=== PATIENT | female | born 1940 | race Caucasian/White ===

== ENCOUNTER 2023-12-14 11:04 | Inpatient (IN) | payer OTHER ==
--- OUTSIDE RECORDS SUMMARY | 2023-12-14 11:08 | XMS REPORT | Continuity of Care Document ---
Author Name Unknown Address [address] [facility] [address] [place] [address] [facility] Address [address] [facility] [address] [place] [address] Care Team Providers Care Business Excellence Leader Name Role Phone BHARATHI BOJORQUEZ Primary Care Physician DR ARTIE Modi Attending Clinician DR ARTIE Modi Attending Clinician Diego child GC_SEFP_Rivera_A Attending Clinician Unavailable Madelyn Gann MD Attending Clinician [phone] MADELYN GANN Attending Clinician Can iltheo 2, [facility] Attending Clinician Unavailable Doctor Unassigned, [place] Attending Clinician U DR ARTIE Gary Admitting Clinician ARIK Diaz Admitting Clinician Unavailable GC_SEFP_Rivera_Katerina Admitting Clinician Unavailable Payers Payer Name Policy Type Policy Number Effective Date Expirati on Date Source [id number] [id number] 2023 00:00:00 [employer] (MEDICARE REPLACEMENT/ADVAN TAGE - PPO) [id number] Problems Condition Name Condition Details Condition Category Status Onset Date Resolution Date Last Treatment Date Treating Clinician Comments Source Hyperlipid emia Hyperlipid emia Disease Active 10-29 00:00: 00 [facility] Allergic conjunctiv itis, bilateral Allergic conjunctiv itis, bilateral Disease Active 10-29 00:00: 00 [facility] Other seasonal allergic rhinitis Other seasonal allergic rhinitis Disease Active 10-29 00:00: 00 [facility] Essential hypertensi on Essential hypertensi on Disease Active 10-29 00:00: 00 [facility] Iron deficiency anemia due to chronic blood loss Iron deficiency anemia due to chronic blood loss Disease Active 10-29 00:00: 00 [facility] 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 - 50 beats per minute 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 - 50 beats per minute Disease Active 10-29 00:00: 00 [facility] Fatigue Fatigue Disease Active 10-29 00:00: 00 [facility] Allergies, Adverse Reactions, Alerts Allergy Name Allergy Type Status Severity Reaction(s) Onset Date Inactive Date Treating Clinician Comments Source No Known Allergie s DA Active [facility] NO KNOWN ALLERGIE S Drug Class Active [facility] Social History Social Habit Start Date Stop Date Quantity Comments Source Exposure to SARS-CoV-2 (event) Unable to assess [facility] Alcohol intake 2020-09-22 00:00:00 2020-09-22 00:00:00 Ex-drinker (finding) [facility] Tobacco use and exposure 2020-02-12 00:00:00 2020-02-12 00:00:00 Never used [facility] Cigarettes smoked current (pack per day) - Reported 2020-02-12 00:00:00 2020-02-12 00:00:00 [facility] Cigarette pack-years 2020-02-12 00:00:00 2020-02-12 00:00:00 [facility] Tobacco Comment 2020-02-12 00:00:00 2020-02-12 00:00:00 social smoker [facility] History of tobacco use 1957-10-17 00:00:00 2015-02-11 00:00:00 Cigarette Smoker [facility] Sex Assigned At 1940 00:00:00 1940 00:00:00 [facility] Smoking Status Start Date Stop Date Source Former smoker 2020-02-12 00:00:00 2020-02-12 00:00:00 [facility] Unknown if ever smoked [facility] Medications Ordered Medication Name Filled Medication Name Start Date Stop Date Current Medication? Ordering Clinician Indication Dosage Frequency Signature (SIG) Comments Components Source levothyroxi ne 50 mcg tablet 03-04 00:00: 00 Yes [id number] TAKE 1 TABLET BY MOUTH EVERY MORNING. Keep on file. [facility] levothyroxi ne 50 mcg tablet 03-04 00:00: 00 Yes [id number] TAKE 1 TABLET BY MOUTH EVERY MORNING. Keep on file. [facility] Cholecalcif mook, Vitamin D3, (VITAMIN D3) 2,000 unit tablet 2019-10 23:55: 44 Yes 2{tbl} Take 2 tablets by mouth daily. [facility] Cholecalcif mook, Vitamin D3, (VITAMIN D3) 2,000 unit tablet 2019-10 23:55: 44 Yes 2{tbl} Take 2 tablets by mouth daily. [facility] Cholecalcif mook, Vitamin D3, (VITAMIN D3) 2,000 unit tablet 2019-10 17:55: 44 Yes 2{tbl} Take 2 tablets by mouth daily. [facility] losartan 50 mg tablet 2019-10 00:00: 00 Yes [id number] 50mg Take 1 tablet by mouth every morning. [facility] amLODIPine 10 mg tablet 2019-10 00:00: 00 Yes [id number] TAKE 1 TABLET BY MOUTH EVERY NIGHT AT BEDTIME [facility] losartan 50 mg tablet 2019-10 00:00: 00 Yes [id number] 50mg Take 1 tablet by mouth every morning. [facility] amLODIPine 10 mg tablet 2019-10 00:00: 00 Yes [id number] TAKE 1 TABLET BY MOUTH EVERY NIGHT AT BEDTIME [facility] losartan 50 mg tablet 2019-10 00:00: 00 Yes [id number] 50mg Take 1 tablet by mouth every morning. [facility] amLODIPine 10 mg tablet 2019-10 00:00: 00 Yes [id number] TAKE 1 TABLET BY MOUTH EVERY NIGHT AT BEDTIME [facility] losartan 50 mg tablet 2019-10 00:00: 00 Yes [id number] 50mg Take 1 tablet by mouth every morning. [facility] amLODIPine 10 mg tablet 2019-10 00:00: 00 Yes [id number] TAKE 1 TABLET BY MOUTH EVERY NIGHT AT BEDTIME [facility] Cholecalcif mook, Vitamin D3, (VITAMIN D3) 2,000 unit tablet 02-11 18:57: 37 Yes 2{tbl} Take 2 tablets by mouth daily. [facility] Cholecalcif mook, Vitamin D3, (VITAMIN D3) 2,000 unit tablet 02-11 18:57: 37 Yes 2{tbl} Take 2 tablets by mouth daily. [facility] Cholecalcif mook, Vitamin D3, (VITAMIN D3) 2,000 unit tablet 02-11 18:57: 37 Yes 2{tbl} Take 2 tablets by mouth daily. [facility] levothyroxi ne 50 mcg tablet 02-11 00:00: 00 Yes [id number] TAKE 1 TABLET BY MOUTH EVERY MORNING. Keep on file. [facility] levothyroxi ne 50 mcg tablet 02-11 00:00: 00 Yes [id number] TAKE 1 TABLET BY MOUTH EVERY MORNING. Keep on file. [facility] levothyroxi ne 50 mcg tablet 02-11 00:00: 00 Yes [id number] TAKE 1 TABLET BY MOUTH EVERY MORNING. Keep on file. [facility] levothyroxi ne 50 mcg tablet 02-11 00:00: 00 Yes [id number] TAKE 1 TABLET BY MOUTH EVERY MORNING. Keep on file. [facility] levothyroxi ne 50 mcg tablet 02-11 00:00: 00 03-04 00:00 :00 No [id number] TAKE 1 TABLET BY MOUTH EVERY MORNING. Keep on file. [facility] losartan 50 mg tablet 2018-10 00:00: 00 Yes [id number] 50mg Take 1 tablet by mouth every morning. [facility] amLODIPine 10 mg tablet 2018-10 00:00: 00 Yes [id number] TAKE 1 TABLET BY MOUTH EVERY NIGHT AT BEDTIME [facility] losartan 50 mg tablet 2018-10 00:00: 00 Yes [id number] 50mg Take 1 tablet by mouth every morning. [facility] amLODIPine 10 mg tablet 2018-10 00:00: 00 Yes [id number] TAKE 1 TABLET BY MOUTH EVERY NIGHT AT BEDTIME [facility] losartan 50 mg tablet 2018-10 00:00: 00 09-15 00:00 :00 No [id number] 50mg Take 1 tablet by mouth every morning. [facility] amLODIPine 10 mg tablet 2018-10 00:00: 09-15 00:00 :00 No [id number] TAKE 1 TABLET BY MOUTH EVERY NIGHT AT BEDTIME [facility] amLODIPine 10 mg tablet 07-06 00:00: 00 Yes [id number] TAKE 1 TABLET BY MOUTH EVERY NIGHT AT BEDTIME [facility] losartan 50 mg tablet 07-06 00:00: 00 Yes [id number] 50mg Take 1 tablet by mouth every morning. [facility] LOSARTAN 50 mg tablet 07-03 00:00: 00 07-06 00:00 :00 No 50mg TAKE 1 TABLET BY MOUTH EVERY MORNING [facility] amLODIPine 10 mg tablet 07-03 00:00: 00 07-06 00:00 :00 No [id number] TAKE 1 TABLET BY MOUTH EVERY NIGHT AT BEDTIME [facility] AMLODIPINE 10 mg tablet 06-28 00:00: 00 Yes [id number] TAKE 1 TABLET BY MOUTH EVERY NIGHT AT BEDTIME [facility] LOSARTAN 50 mg tablet 06-28 00:00: 00 Yes [id number] 50mg TAKE 1 TABLET BY MOUTH EVERY MORNING [facility] AMLODIPINE 10 mg tablet 06-28 00:00: 00 Yes [id number] TAKE 1 TABLET BY MOUTH EVERY NIGHT AT BEDTIME [facility] LOSARTAN 50 mg tablet 06-28 00:00: 00 Yes [id number] 50mg TAKE 1 TABLET BY MOUTH EVERY MORNING [facility] LOSARTAN 50 mg tablet 06-28 00:00: 00 Yes [id number] 50mg TAKE 1 TABLET BY MOUTH EVERY MORNING [facility] AMLODIPINE 10 mg tablet 06-28 00:00: 00 07-02 00:00 :00 No [id number] TAKE 1 TABLET BY MOUTH EVERY NIGHT AT BEDTIME [facility] levothyroxi ne 50 mcg tablet 06-20 00:00: 00 Yes [id number] TAKE 1 TABLET BY MOUTH EVERY MORNING [facility] levothyroxi ne 50 mcg tablet 06-20 00:00: 00 Yes [id number] TAKE 1 TABLET BY MOUTH EVERY MORNING [facility] levothyroxi ne 50 mcg tablet 06-20 00:00: 00 Yes [id number] TAKE 1 TABLET BY MOUTH EVERY MORNING [facility] levothyroxi ne 50 mcg tablet 06-20 00:00: 00 Yes [id number] TAKE 1 TABLET BY MOUTH EVERY MORNING [facility] levothyroxi ne 50 mcg tablet 06-20 00:00: 00 Yes [id number] TAKE 1 TABLET BY MOUTH EVERY MORNING [facility] levothyroxi ne 50 mcg tablet 06-20 00:00: 00 Yes [id number] TAKE 1 TABLET BY MOUTH EVERY MORNING [facility] levothyroxi ne 50 mcg tablet 06-20 00:00: 00 02-11 00:00 :00 No [id number] TAKE 1 TABLET BY MOUTH EVERY MORNING [facility] amLODIPine 10 mg tablet 05-11 00:00: 00 Yes [id number] TAKE 1 TABLET BY MOUTH EVERY NIGHT AT BEDTIME [facility] losartan 50 mg tablet 05-11 00:00: 00 Yes 50mg Take 1 tablet by mouth every morning. [facility] amLODIPine 10 mg tablet 05-11 00:00: 00 Yes [id number] TAKE 1 TABLET BY MOUTH EVERY NIGHT AT BEDTIME [facility] losartan 50 mg tablet 05-11 00:00: 00 Yes 50mg Take 1 tablet by mouth every morning. [facility] levothyroxi ne 50 mcg tablet 05-11 00:00: 00 06-20 17:33 :41 No [id number] TAKE 1 TABLET BY MOUTH EVERY MORNING [facility] amLODIPine 10 mg tablet 05-11 00:00: 00 06-20 00:00 :00 No [id number] TAKE 1 TABLET BY MOUTH EVERY NIGHT AT BEDTIME [facility] losartan 50 mg tablet 05-11 00:00: 00 06-20 00:00 :00 No 50mg Take 1 tablet by mouth every morning. [facility] amLODIPine 10 mg tablet 05-11 00:00: 00 06-20 00:00 :00 No [id number] TAKE 1 TABLET BY MOUTH EVERY NIGHT AT BEDTIME [facility] losartan 50 mg tablet 05-11 00:00: 00 06-20 00:00 :00 No 50mg Take 1 tablet by mouth every morning. [facility] Vital Signs Vital Name Observation Time Observation Value Comments S ource Height 2023-12-05 14:57:00 162.56 CM Weight 2023-12-05 14:57:00 70 KG Height 2023-12-05 14:57:00 162.56 CM Weight 2023-12-05 14:57:00 70 KG Procedures Procedure Date / Time Performed Performing Clinician Source FREE T4 2019-06-28 16:19:00 Damari Gann [facility] THYROID STIMULATING HORMONE 2019-06-28 16:19:00 Madelyn Gann [facility] COMP. METABOLIC PANEL (06178) 2019-06-28 16:19:00 Madelyn Gann [facility] CBC WITH DIFFERENTIAL 2019-06-28 16:19:00 Madelyn Kent [facility] AGREEMENTS AUTHORIZATIONS AND IRREVOCABLE ASSIGNMENTS (FORM 2001) 2019-06-28 05:01:00 Doctor Unassigned, [place] [facility] Encounters Start Date/Time End Date/Time Encounter Type Admission Type Attending Clinicians Care Facility Care Department Encounter ID Source 2023-12-05 14:37:00 2023-12-05 18:45:00 Emergency E ARTIE ALVAREZ [facility] [id number] [facility] 2023-12-05 14:37:00 2023-12-05 14:37:00 Emergency E [facility] [id number] [facility] 2023-11-30 00:00:00 2023-11-30 00:00:00 Outpatient GC_SEFP_Riv era_A [facility] [id number] [facility] 2023-11-08 00:00:00 2023-11-08 00:00:00 Outpatient GC_SEFP_Riv era_A [facility] [id number] [facility] 2021-08-27 00:00:00 2021-08-27 00:00:00 [facility] [id number] [id number] [facility] 2021-03-03 00:00:00 2021-03-03 00:00:00 Refill Madelyn Gann [facility] [id number] [id number] [id number] [facility] 2020-09-22 08:57:07 2020-09-23 08:49:12 Telemedici ne Visit Madelyn Gann Katerina [facility] [id number] [id number] [id number] [facility] 2020-09-22 15:40:00 2020-09-22 15:40:00 Outpatient R MADELYN GANN [facility] [id number] [facility] 2020-09-15 00:00:00 2020-09-15 00:00:00 Refill Madelyn Gann Katerina [facility] [id number] 350.1.13.10 [id number] [facility] 2020-08-26 15:20:00 2020-08-26 15:20:00 Outpatient R MADELYN GANN [facility] [id number] [facility] 2020-08-18 16:35:00 2020-08-18 16:35:00 Outpatient R MADELYN GANN [facility] [id number] [facility] 2020-08-14 13:40:00 2020-08-14 13:40:[address] [facility] [id number] [facility] 2020-06-20 00:00:00 2020-06-20 00:00:00 Refill Madelyn Gann [facility] [id number] [id number] [id number] [facility] 2020-02-12 07:45:11 2020-02-12 14:16:57 Telemedici ne Visit Madelyn Gann [facility] [id number] 350.1.13.10 4.2.7.2.[id number] [facility] 2020-02-12 13:40:00 2020-02-12 13:40:00 Outpatient R MADELYN GANN [facility] [id number] [facility] 2019-06-28 11:14:55 2019-07-02 12:48:06 [facility] Visit 2, [facility] Madelyn Gann [facility] [id number] 350.1.13.10 4.2.7.2.[id number] [facility] 2019-07-02 00:00:00 2019-07-02 00:00:00 Refill Madelyn Gann [facility] [id number] [id number] [id number] [facility] 2019-06-28 00:00:00 2019-06-28 00:00:00 Orders Only Doctor Unassigned, [place] [facility] [id number] 350.1.13.10 4.2.7.2.[id number] [facility] 2019-06-20 00:00:00 2019-06-20 00:00:00 Refill Madelyn Gann [facility] [id number] 350.1.13.10 4.2.7.2.[id number] [facility] 2019-06-19 00:00:00 2019-06-19 00:00:00 Refill Madelyn Gann [facility] [id number] 350.1.13.10 4.2.7.2.[id number] [facility] Results Test Description Test Time Test Comments Results Result Co mments Source AMMONIA [id number] 17:34:00* Test Item Value Reference Range Interpretation Comme nts AMMONIA (test code = 54A) <10 umol/L 11-32 L DRUGS OF [id number] 17:27:00* Test Item Value Reference Range Interpretation Comme nts DRUG SCRN (test code = HDOA) URINE DRUG SCREEN This is an unconfirmed screening result and should not be used for non-medical purposes CANNABINOD (test code = 88C) NEGATIVE NEGATIVE AMPHETAMINE (test code = 84A) NEGATIVE NEGATIVE BENZODIAZP (test code = 86A) NEGATIVE NEGATIVE BARBITURAT (test code = 85A) NEGATIVE NEGATIVE OPIATES (test code = 92B) NEGATIVE NEGATIVE COCAINE (test code = 87A) NEGATIVE NEGATIVE PHENCYCLID (test code = 66A) NEGATIVE NEGATIVE METHADONE (test code = 64A) NEGATIVE NEGATIVE DOAH (test code = DOAH.) URINE DRUGSCREEN Cut-off values are as follows: Cannabinoids 50 ng/mL Cocaine 300 ng/mL Amphetamines 1000 ng/mL Phencyclidine 25 ng/mL Benzodiazepines 200 ng.mL Methadone 300 ng/mL Barbiturates 200 ng/mL Opiates 300 ng/mL SARS-CoV (RAPID ANTIGEN)2023-12-05 17:24:00* Test Item Value Reference Range Interpretation Comme nts SARS-CoV (ANTIGEN) (test code = COVAG) POSITIVE NEGATIVE AA COVID AG (test code = COVAGC) This test has been marketed under the FDA Emergency Use Authorization (EUA) to meet challenges of the COVID-19 pandemic. The validation standards normally enforced by the FDA and the College of the [employer] (CAP) are more stringent than those required for this test. Therefore, the result should be interpreted with caution and close attention to other clinical and epidemiological data LIVER [id number] 16:05:00* Test Item Value Reference Range Interpretation Comme nts BILI TOTAL (test code = 11A) 0.3 mg/dL 0.2-1.0 BILI DIRCT (test code = 12A) <0.1 mg/dL 0.0-0.3 Unable to calcul ate Indirect Bili due to low test results PROTEIN (test code = 07D) 6.5 g/dL 5.7-8.2 ALBUMIN (test code = 08D) 4.1 g/dL 3.2-4.8 GLOBULIN (test code = GLB) 2.4 g/dL 1.5-3.8 ALB/GLOB (test code = AGRR) 1.7 1.0-2.6 ALK PHOS (test code = 35A) 59 IU/L 46-116 AST (test code = 30A) 26 IU/L <=33 ALT (test code = 31A) 9 IU/L 10-49 L [id number] 15:57:00* Test Item Value Reference Range Interpretation Comme nts ACETAMINPH (test code = 94M) <0.2 mg/dL 1.2-2.5 L ALCOHOL BLOOD (ETOH)2023-12-05 15:57:00* Test Item Value Reference Range Interpretation Comme nts ETOH (test code = HALC) ETHANOL * The result is to be used only for medical purposes ALCOHOL (test code = 56A) <10 mg/dL <=10 CT HEAD W/O [id number] 15:55:43 [facility] 1940 Sex: FExam: CT head without contrast.Clinical History: Altered mental status;Clearance for SCU.Location: D4.Findings: Multislice axial noncontrast images are obtained through the head. Coronal and sagittal reconstructed images are obtained and are used in interpretation.Comparison is made with previous study dated September 12, 2023. There is moderate diffuse cerebral volume loss appropriate for age. There are moderate periventricular white matter changes. No areas of abnormal density are otherwise identified within the brain. There is no mass effect. No hydrocephalus. No intra or extra-axial hemorrhage. There is no evidence of acute infarct. There is mild mucosal thickening within the maxillary sinuses and mod erate mucosal thickening within the ethmoid sinuses. No skeletal or soft tissue abnormalities are identified.Impression:1. No acute abnormalities are identified.2. There are moderate periventricular white matter changes.*One or more of the following radiation dose reduction techniques was used: automated exposure control, adjustment of mA and/or KV according to patient size, and/or utilization ofiterative reconstruction technique.Electronically signed by: Arik Cantu MD 12/05/2023 03:55 PM [facility] [id number] METABOLIC [id number] 15:50:00* Test Item Value Reference Range Interpretation Comme nts GLUCOSE (test code = 06D) 98 mg/dL 75-100 SODIUM (test code = 01A) 136 mmol/L 136-145 POTASSIUM (test code = 01B) 3.7 mmol/L 3.6-5.1 CHLORIDE (test code = 04A) 105 mmol/L 98-107 CO2 (test code = 02A) 25 mmol/L 20-31 ANION GAP (test code = ANG) 9.8 mmol/L BUN (test code = 05D) 14 mg/dL 9-23 CREATININE (test code = 03E) 0.9 mg/dL 0.6-1.0 GFR (test code = GFR) 62 mL/min/1.73m\\S\\2 >=90 L EGFR (test code = EGFR) eGFR BY CKD-EPI CALCULATION IS NOT RECOMMENDED FOR PATIENTS UNDER 18 YEARS OF AGE. BUN/CREA (test code = BCR) 15 12-20 CALCIUM (test code = 09D) 8.6 mg/dL 8.3-10.6 BILI TOTAL (test code = 11A) 0.3 mg/dL 0.2-1.0 PROTEIN (test code = 07D) 6.6 g/dL 5.7-8.2 ALBUMIN (test code = 08D) 4.2 g/dL 3.2-4.8 GLOBULIN (test code = GLB) 2.4 g/dL 1.5-3.8 ALB/GLOB (test code = AGRR) 1.8 1.0-2.6 ALK PHOS (test code = 35A) 60 IU/L 46-116 AST (test code = 30A) 26 IU/L <=33 ALT (test code = 31A) 12 IU/L 10-49 [id number] 15:49:00* Test Item Value Reference Range Interpretation Comme nts SALICYLATE (test code = 94B) <3.0 mg/dL 15.0-30.0 L CBC (INCLUDES AUTOMATED DIFFERENTIAL)2023-12-05 15:31:00* Test Item Value Reference Range Interpretation Comme nts WBC (test code = WBC) 8.3 10\\S\\3/uL 4.5-11.0 RBC (test code = RBC) 3.48 10\\S\\6/uL 3.80-5.80 L HGB (test code = HBG) 11.0 g/dL 12.0-15.5 L HCT (test code = HCT) 33.2 % 35.0-44.0 L MCV (test code = MCV) 95.4 fL 81.0-99.0 MCH (test code = MCH) 31.6 pg 27.0-31.0 H MCHC (test code = MCHC) 33.1 g/dL 32.0-36.0 RDW (test code = RDW) 13.2 % 11.5-14.5 PLT (test code = PLT) 204 10\\S\\3/uL 130-400 MPV (test code = MPV) 11.1 fL 9.4-12.4 NEUTROP # (test code = NE#) 6.4 10\\S\\3/uL 1.6-8.0 LYMPH # (test code = LY#) 1.3 10\\S\\3/uL 1.1-3.5 MONOCYTE # (test code = MO#) 0.6 10\\S\\3/uL 0.0-1.1 EOSINOPH # (test code = EO#) 0.0 10\\S\\3/uL 0.0-0.7 BASOPHIL # (test code = BA#) 0.0 10\\S\\3/uL 0.0-0.3 IG # (test code = IG#) 0.02 10\\S\\3/uL 0.00-0.06 NRBC # (test code = NRBC#) 0.00 10\\S\\3/uL 0.00-0.01 NEUTROPH % (test code = NE%) 76.8 % 35.0-73.0 H LYMPH % (test code = LY%) 15.2 % 20.0-55.0 L MONO % (test code = MO%) 7.7 % 2.5-10.0 EOSINOPH % (test code = EO%) 0.0 % 0.0-5.0 BASOPHIL % (test code = BA%) 0.1 % 0.0-2.0 IG % (test code = IG%) 0.2 % 0.0-0.8 NRBC% (test code = NRBC%) 0.0 % 0.0-0.2 MANDIFF (test code = MDIFF) NO XR CHEST 1 VIEW [id number] 15:11:49 [facility] : 1940 Sex: FCHEST, SINGLE VIEWLOCATION [id number]: Confusion.A single view of the chest was obtained at 3:08 PM. No prior exams are available for comparison.FINDINGS: The lungs are clear of acute infiltrate or mass. The heartand pulmonary vasculature are within normal limits. No pleural effusion is present. No free air is identified under the diaphragm. No acute skeletal abnormality is seen.IMPRESSION: No acute thoracic abnormality.Electronically signed by: Osmany Valdez MD 12/05/2023 03:11 PM [facility] [id number] STIMULATING [id number] 17:57:00* Test Item Value Reference Range Interpretation Comme nts TSH (test code = 2223649465) See_Comment [Automated [employer]] The system which generated this result transmitted reference range: 0.45 - 4.70 mIU/L. The reference range was not used to interpret this result as normal/abnormal. Lab Interpretation (test code = 52862-2) [facility] [id number] 17:57:00 * Test Item Value Reference Range Interpretation Comme nts TSH (test code = 6539692597) See_Comment [Automated [employer]] The system which generated this result transmitted reference range: 0.45 - 4.70 mIU/L. The reference range was not used to interpret this result as normal/abnormal. Lab Interpretation (test code = 61435-0) Normal [facility] [id number] 17:43:00* Test Item Value Reference Range Interpretation Comme nts FREE T4 (test code = 5070631601) 1.32 ng/dL 0.78-2.2 Lab Interpretation (test cod e = 22490-4) Normal [facility] [id number] 17:43:00* Test Item Value Reference Range Interpretation Comme nts FREE T4 (test code = 6796931089) 1.32 ng/dL 0.78-2.2 Lab Interpretation (test cod e = 28898-3) Normal [facility]. METABOLIC PANEL (68621)2019-06-28 17:29:00* Test Item Value Reference Range Interpretation Comme nts NA (test code = 8189939418) 143 mmol/L 135-145 K (test code = 7608267098) 4.3 mmol/L 3.5-5 CL (test code = 9595388598) 110 mmol/L 98-108 H CO2 TOTAL (test code = 1620782044) 27 mmol/L 23-31 AGAP (test code = 1173303534) 2-16 BUN (test code = 7697988035) 17 mg/dL 7-23 GLUCOSE (test code = 8689216362) 98 mg/dL 70-110 CREATININE (test code = 7535018161) 0.87 mg/dL 0.5-1.04 TOTAL BILI (test code = 5671092269) 0.4 mg/dL 0.1-1.1 CALCIUM (test code = 3726371981) 9.9 mg/dL 8.6-10.6 T PROTEIN (test code = 0669492749) 7.0 g/dL 6.3-8.2 ALBUMIN (test code = 9798028817) 4.3 g/dL 3.5-5 ALK PHOS (test code = 1690923426) 60 U/L 34-122 ALT(SGPT) (test code = 9663441242) 17 U/L 9-51 AST(SGOT) (test code = 7662086553) 24 U/L 13-40 eGFR Calculation (Non-) (test code = 9427573371) mL/min/1.73m2 eGFR Calculation () (test code = 8728030997) mL/min/1.73m2 AALIYAH (test code = AALIYAH) Association of Glomerular Filtration Rate (GFR) and Staging of Kidney Disease*+ + + +| GFR (mL/min/1.73 m2)?| With Kidney Damage?|?Without Kidney Damage+ --------+ --------+ +|?>90?|?S tage one?|? Normal?+ ---------+ ---------+ +|?60-89? |?Stage two?|? Decreased GFR? + --+ --+ ------+|?30-59?|?Stage three?|? Stage three? + --+ --+ ------+|?15-29?|?Stage four? |? Stage four?+ -------+ -------+ +|?<15 (or dialysis)??|?Stage five? |? Stage five?+ -------+ -------+ +*Each stage assumes the associated GFR level has been in effect for at least three months.?Stages 1 to 5, with or without kidney disease, indicate chronic kidney disease.Notes: Determination of stages one and two (with eGFR >59mL/min/1.73 m2) requires estimation of kidney damage for at least three months as defined by structural or functional abnormalities of the kidney, manifested by either:Pathological abnormalities or Markers of kidney damage (including abnormalities in the composition of the blood or urine or abnormalities in imaging tests). Lab Interpretation (test code = 72843-1) Abnormal [facility]. METABOLIC PANEL ([id number])2019-06-28 17:29:00* Test Item Value Reference Range Interpretation Comme nts NA (test code = 5886231808) 143 mmol/L 135-145 K (test code = 4085449365) 4.3 mmol/L 3.5-5 CL (test code = 3906994690) 110 mmol/L 98-108 H CO2 TOTAL (test code = 4485453786) 27 mmol/L 23-31 AGAP (test code = 0006465210) 2-16 BUN (test code = 5244514302) 17 mg/dL 7-23 GLUCOSE (test code = 2636424145) 98 mg/dL 70-110 CREATININE (test code = 8516047822) 0.87 mg/dL 0.5-1.04 TOTAL BILI (test code = 2243543425) 0.4 mg/dL 0.1-1.1 CALCIUM (test code = 6435316852) 9.9 mg/dL 8.6-10.6 T PROTEIN (test code = 4494052863) 7.0 g/dL 6.3-8.2 ALBUMIN (test code = 1484778429) 4.3 g/dL 3.5-5 ALK PHOS (test code = 1141768977) 60 U/L 34-122 ALT(SGPT) (test code = 2789730797) 17 U/L 9-51 AST(SGOT) (test code = 8587698568) 24 U/L 13-40 eGFR Calculation (Non-) (test code = 2865755817) mL/min/1.73m2 eGFR Calculation () (test code = 6852405451) mL/min/1.73m2 AALIYAH (test code = AALIYAH) Association of Glomerular Filtration Rate (GFR) and Staging of Kidney Disease*+ + + +| GFR (mL/min/1.73 m2)?| With Kidney Damage?|?Without Kidney Damage+ --------+ --------+ +|?>90?|?S tage one?|? Normal?+ ---------+ ---------+ +|?60-89? |?Stage two?|? Decreased GFR? + --+ --+ ------+|?30-59?|?Stage three?|? Stage three? + --+ --+ ------+|?15-29?|?Stage four? |? Stage four?+ -------+ -------+ +|?<15 (or dialysis)?|?Stage five? |? Stage five?+ -------+ -------+ +*Each stage assumes the associated GFR level has been in effect for at least three months.?Stages 1 to 5, with or without kidney disease, indicate chronic kidney disease.Notes: Determination of stages one and two (with eGFR >59mL/min/1.73 m2) requires estimation of kidney damage for at least three months as defined by structural or functional abnormalities of the kidney, manifested by either:Pathological abnormalities or Markers of kidney damage (including abnormalities in the composition of the blood or urine or abnormalities in imaging tests). Lab Interpretation (test code = 73304-0) Abnormal [facility] WITH [id number] 17:18:00* Test Item Value Reference Range Interpretation Comme nts WBC (test code = 6690-2) See_Comment [[employer] The system which generated this result transmitted reference range: 4.30 - 11.10 10*3/?L. The reference range was not used to interpret this result as normal/abnormal. RBC (test code = 789-8) See_Comment L [Automated messa ge] The system which generated this result transmitted reference range: 3.93 - 5.25 10*6/?L. The reference range was not used to interpret this result as normal/abnormal. HGB (test code = 718-7) 11.3 g/dL 11.6-15 L HCT (test code = 4544-3) 36.2 % 35.7-45.2 MCV (test code = 787-2) 100.3 fL 80.6-95.5 H MCH (test code = 785-6) 31.3 pg 25.9-32.8 MCHC (test code = 786-4) 31.2 g/dL 31.6-35.1 L RDW-SD (test code = 62537-3) 46.6 fL 39-49.9 RDW-CV (test code = 788-0) 12.5 % 12-15.5 PLT (test code = 777-3) See_Comment [Automated messa ge] The system which generated this result transmitted reference range: 166 - 358 10*3/?L. The reference range was not used to interpret this result as normal/abnormal. MPV (test code = 49211-9) 10.8 fL 9.5-12.9 NRBC/100 WBC (test code = 5900901735) See_Comment [Autom[employer]] The system which generated this result transmitted reference range: 0.0 - 10.0 /100 WBCs. The reference range was not used to interpret this result as normal/abnormal. NRBC x10^3 (test code = 7527400157) <0.01 See_Comment [Automated messa ge] The system which generated this result transmitted reference range: 10*3/?L. The reference range was not used to interpret this result as normal/abnormal. GRAN MAT (NEUT) % (test code = 770-8) 43.3 % IMM GRAN % (test code = 9084663755) 0.20 % LYMPH % (test code = 736-9) 44.8 % MONO % (test code = 5905-5) 7.3 % EOS % (test code = 713-8) 3.4 % BASO % (test code = 706-2) 1.0 % GRAN MAT x10^3(ANC) (test code = 5316696242) 2.27 10*3/uL 1.88-7.09 IMM GRAN x10^3 (test code = 8837224113) <0.03 0-0.06 LYMPH x10^3 (test code = 731-0) 2.35 10*3/uL 1.32-3.29 MONO x10^3 (test code = 742-7) 0.38 10*3/uL 0.33-0.92 EOS x10^3 (test code = 711-2) 0.18 10*3/uL 0.03-0.39 BASO x10^3 (test code = 704-7) 0.05 10*3/uL 0.01-0.07 Lab Interpretation (test code = 57105-5) Abnormal [facility] WITH [id number] 17:18:00* Test Item Value Reference Range Interpretation Comme nts WBC (test code = 6690-2) See_Comment [Automated messa ge] The system which generated this result transmitted reference range: 4.30 - 11.10 10*3/?L. The reference range was not used to interpret this result as normal/abnormal. RBC (test code = 789-8) See_Comment L [Automated [employer] ge] The system which generated this result transmitted reference range: 3.93 - 5.25 10*6/?L. The reference range was not used to interpret this result as normal/abnormal. HGB (test code = 718-7) 11.3 g/dL 11.6-15 L HCT (test code = 4544-3) 36.2 % 35.7-45.2 MCV (test code = 787-2) 100.3 fL 80.6-95.5 H MCH (test code = 785-6) 31.3 pg 25.9-32.8 MCHC (test code = 786-4) 31.2 g/dL 31.6-35.1 L RDW-SD (test code = 42275-5) 46.6 fL 39-49.9 RDW-CV (test code = 788-0) 12.5 % 12-15.5 PLT (test code = 777-3) See_Comment [Automated messa ge] The system which generated this result transmitted reference range: 166 - 358 10*3/?L. The reference range was not used to interpret this result as normal/abnormal. MPV (test code = 96712-9) 10.8 fL 9.5-12.9 NRBC/100 WBC (test code = 7172474499) See_Comment [Automated me ssage] The system which generated this result transmitted reference range: 0.0 - 10.0 /100 WBCs. The reference range was not used to interpret this result as normal/abnormal. NRBC x10^3 (test code = 9576488134) <0.01 See_Comment [Automated messa ge] The system which generated this result transmitted reference range: 10*3/?L. The reference range was not used to interpret this result as normal/abnormal. GRAN MAT (NEUT) % (test code = 770-8) 43.3 % IMM GRAN % (test code = 4955874131) 0.20 % LYMPH % (test code = 736-9) 44.8 % MONO % (test code = 5905-5) 7.3 % EOS % (test code = 713-8) 3.4 % BASO % (test code = 706-2) 1.0 % GRAN MAT x10^3(ANC) (test code = 5720402013) 2.27 10*3/uL 1.88-7.09 IMM GRAN x10^3 (test code = 1403646754) <0.03 0-0.06 LYMPH x10^3 (test code = 731-0) 2.35 10*3/uL 1.32-3.29 MONO x10^3 (test code = 742-7) 0.38 10*3/uL 0.33-0.92 EOS x10^3 (test code = 711-2) 0.18 10*3/uL 0.03-0.39 BASO x10^3 (test code = 704-7) 0.05 10*3/uL 0.01-0.07 Lab Interpretation (test code = 06523-0) Abnormal [facility]"
[2023-12-14] MEDS ORDERED: NA CHLORIDE 0.9% 1,000 ML ONE (12:06)
[2023-12-14 12:12] LABS: Absolute Lymphocytes (CBC) 1.5 K/uL (0.7-4.9); Hematocrit 35.5 % (36.0-45.0); Lymphocytes % 16.8 % (15.3-44.8); MCV 93.8 fL (80-100); MPV 7.4 fL (7.6-11.3); Platelets 444 thou/uL (152-406); RBC Red Blood Cell Count 3.78 M/uL (3.86-4.86)
[2023-12-14 12:34] LABS: Specific Gravity 1.022 (1.005-1.030); Urine Bacteria 20-50 /HPF (<20); Urine Bilirubin NEGATIVE (Negative); Urine Blood Trace (Negative); Urine Clarity Extremely Turbid (Clear); Urine Color Yellow (Yellow); Urine Glucose NEGATIVE (Negative); Urine Mucus 4+ /HPF (None Seen); Urine Protein 1+ (Negative); Urine Urobilinogen Normal (Normal)
--- NOTE | 2023-12-14 12:48 | RAD REPORT ---
EXAM DESCRIPTION: RAD - Chest Single View - 12/14/2023 12:42 pm CLINICAL HISTORY: COUGH Chest pain. COMPARISON: No comparisons FINDINGS: Portable technique limits examination quality. The lungs are emphysematous but grossly clear. The heart is normal in size. No displaced fractures. IMPRESSION: Mild COPD.
[2023-12-14 13:16] LABS: Albumin 2.8 g/dL (3.4-5.0); Bilirubin Total 0.4 mg/dL (0.2-1.0); Protein, Total 7.3 g/dL (6.4-8.2)
--- NOTE | 2023-12-14 13:38 | RAD REPORT ---
EXAM DESCRIPTION: CT - Head Brain Wo Cont - 12/14/2023 1:31 pm CLINICAL HISTORY: AMS;Confused COMPARISON: No comparisons TECHNIQUE: All CT scans are performed using dose optimization technique as appropriate and may inclu de automated exposure control or mA/KV adjustment according to patient size. FINDINGS: No intracranial hemorrhage, hydrocephalus or extra-axial fluid collection.Moderate general ized brain atrophy is present with moderate periventricular and deep white matter chronic microvascul ar ischemic changes.No areas of brain edema or evidence of midline shift. Moderate multifocal paranasal sinus thickening. The calvarium is intact. IMPRESSION: No acute intracranial abnormality.
--- NOTE | 2023-12-14 13:45 | RAD REPORT ---
EXAM DESCRIPTION: CTAbdomen Pelvis W Contrast - 12/14/2023 1:32 pm CLINICAL HISTORY: Abdominal pain. AMS, not eating COMPARISON: No comparisons TECHNIQUE: Biphasic CT imaging of the abdomen and pelvis was performed with 100 ml non-ionic IV cont rast. All CT scans are performed using dose optimization technique as appropriate and may include automated exposure control or mA/KV adjustment according to patient size. FINDINGS: The lung bases are clear.Small amount of fluid is seen at the gastroesophageal junction. T race pleural fluid present bilaterally. The liver, spleen, pancreas, adrenal glands and kidneys are within normal limits. 5 cm left renal cys t. No bowel obstruction, free air, free fluid or abscess. Sigmoid diverticulosis coli without diverticul itis. The appendix is normal. No evidence of significant lymphadenopathy. Mild lumbar degenerative changes. IMPRESSION: No acute intra-abdominal or pelvic finding.
--- NOTE | 2023-12-14 14:18 | ER ---
Nurse's Notes [facility] Name: Laura Mel[facility]dez Age: 83 yrs Sex: Female : 1940 Arrival Date: 12/14/2023 Time: 11:04 Bed 14 Private MD: Diagnosis: UTI/ Urinary tract infection, site not specified;Altered mental status, unspecified;Dehydration Presentation: 12/14 11:30 Chief complaint: EMS states: senior care called and stated patient had covid a week ko1 ago, has had decreased appetite and fluid intake, is confused (unsure of baseline), and she will not take her medications. Coronavirus screen: At this time, the client does not indicate any symptoms associated with coronavirus-19. Ebola Screen: No symptoms or risks identified at this time. Initial Sepsis Screen: Does the patient meet any 2 criteria? No. Patient's initial sepsis screen is negative. Does the patient have a suspected source of infection? No. Patient's initial sepsis screen is negative. Risk Assessment: Do you want to hurt yourself or someone else? Patient reports no desire to harm self or others. Onset of symptoms is unknown. 11:30 Method Of Arrival: EMS: [facility] ko1 11:30 Acuity: PARKER 3 ko1 Triage Assessment: 13:11 General: Appears unkempt, Behavior is cooperative, anxious. Pain: Denies pain. ko1 Historical: - Allergies: 13:11 No Known Allergies; ko1 - PMHx: 13:11 Hypertensive disorder; Hypothyroidism; Anxiety; Anemia; ko1 - Immunization history:: Adult Immunizations unknown. - Social history:: Smoking status: unknown. - Family history:: not pertinent. - Hospitalizations: : No recent hospitalization is reported. Screenin:45 [facility] ED Fall Risk Assessment (Adult) History of falling in the last 3 months, ko1 including since admission No falls in past 3 months (0 pts) Confusion or Disorientation Yes (5 pts) Intoxicated or Sedated No (0 pts) Impaired Gait No (0 pts) Mobility Assist Device Used No (0 pt) Altered Elimination No (0 pt) Score/Fall Risk Level 3 or more points = High Risk Oriented to surroundings, Maintained a safe environment, Educated pt \T\ family on fall prevention, incl call for assistance when getting out of bed, Assessed \T\ reinforced patient's understanding of fall precautions, Provided non-skid footwear, Hourly rounding (assess needs \T\ fall precautionary measures) done, Used ambulatory aids as needed (educated on \T\ assisted with), Used gait belt as appropriate Implemented a Fall Risk Plan of Care, Apply high fall risk patient identification: yellow non skid footwear/ fall signage. 13:36 Abuse screen: Denies threats or abuse. Denies injuries from another. Nutritional ko1 screening: No deficits noted. Tuberculosis screening: No symptoms or risk factors identified. Assessment: 11:45 Neuro: Level of Consciousness is awake, alert, confused, Oriented to person. ko1 Cardiovascular: No deficits noted. Respiratory: No deficits noted. GI: No deficits noted. : No deficits noted. EENT: No deficits noted. Derm: toenails need cutting!!!. Musculoskeletal: No deficits noted. Vital Signs: 11:30 BP 134 / 76; Pulse 85; Resp 16; Temp 97; Pulse Ox 98% ; ko1 11:45 BP 151 / 75; Pulse 90; Resp 14; Pulse Ox 98% ; ko1 13:00 BP 171 / 75; Pulse 79; Resp 18; Pulse Ox 99% ; ko1 14:00 BP 139 / 98; Pulse 101; Resp 19; Pulse Ox 97% ; ko1 16:00 BP 155 / 72; Pulse 78; Resp 15; Pulse Ox 97% ; ko1 ED Course: 11:08 Patient arrived in ED. rn 11:08 Mitch Campbell MD is Attending Physician. rn 11:47 Linnea Nazario, RN is Primary Nurse. ko1 12:00 Inserted saline lock: 22 gauge in right forearm, using aseptic technique. Blood ko1 collected. 12:11 CBC with Diff Sent. ko1 12:11 CMP Sent. ko1 12:11 Lipase Sent. ko1 12:22 Urinalysis w/ reflexes Sent. ko1 12:44 XRAY Chest (1 view) In Process Unspecified. EDMS 13:11 Triage completed. ko1 13:33 CT Head Brain wo Cont In Process Unspecified. EDMS 13:34 CT Abd/Pelvis - IV Contrast Only In Process Unspecified. EDMS 13:36 Patient has correct armband on for positive identification. Fall risk band placed. ko1 Placed in gown. Bed in low position. Call light in reach. Side rails up X2. Provided Education on: na. Client placed on continuous cardiac and pulse oximetry monitoring. NIBP monitoring applied. emergency manager on. Door closed. Noise minimized. Lights dimmed. Warm blanket given. 14:12 Urine Culture Sent. ko1 14:18 Brandon Coughlin MD is Hospitalizing Provider. rn 15:05 Lactate w/ 2H reflex if indic. Sent. ko1 15:05 Blood Culture Adult (2) Sent. ko1 Administered Medications: 12:10 Drug: NS 0.9% IV 1000 ml IV at 1000 ml once Route: IV; Rate: 1000 ml; Site: right ko1 forearm; 15:05 Drug: Rocephin IV 1 grams IV at calculated rate once; Given slow IV push per pharmacy ko1 instructions Route: IV; Rate: calculated rate; Site: left forearm; Medication: 11:45 VIS not applicable for this client. ko1 Outcome: 14:18 Decision to Hospitalize by Provider. rn 19:02 Patient left the ED. ko1 Signatures: Dispatcher [employer] EDMS Mitch Campbell MD MD rn Oliver, Kathy, RN RN ko1 Corrections: (The following items were deleted from the chart) 13:14 13:11 Allergies: Aspirin; ko1 ko1 13:37 11:45 [facility] ED Fall Risk Assessment (Adult) History of falling in the last 3 months, ko1 including since admission No falls in past 3 months (0 pts) Confusion or Disorientation Yes (5 pts) ko1
--- NOTE | 2023-12-14 14:19 | EDPHYS ---
Physician Documentation [facility] Name: Laura Meléndez Age: 83 yrs Sex: Female : 1940 Arrival Date: 12/14/2023 Time: 11:04 Bed 14 Private MD: ED Physician Mitch Campbell HPI: 12/14 12:22 This 83 yrs old Female presents to ER via Unassigned with complaints of weakness, AMS. rn 12:22 The patient presents with decreased mental status, decreased responsiveness. Onset: The rn symptoms/episode began/occurred at an unknown time. Possible causes: unknown. Current symptoms: In the emergency department the patient's symptoms are unchanged from the initial presentation. The patient has not experienced similar symptoms in the past. The patient has not recently seen a physician. [facility] coming [facility], has COVID, diagnosed 1 week ago. Per EMS prison states not much of an appetite lately not eating or drinking much, also not taking her medication. No known fall. Mild cough. No vomiting or diarrhea.. Historical: - Allergies: 13:11 No Known Allergies; ko1 - PMHx: 13:11 Hypertensive disorder; Hypothyroidism; Anxiety; Anemia; ko1 - Immunization history:: Adult Immunizations unknown. - Social history:: Smoking status: unknown. - Family history:: not pertinent. - Hospitalizations: : No recent hospitalization is reported. ROS: 12:22 Constitutional: Negative for fever, chills, and weight loss, Cardiovascular: Negative rn for chest pain, palpitations, and edema, Respiratory: Positive for cough, negative for shortness of breath Abdomen/GI: Negative for abdominal pain, nausea, vomiting, diarrhea, and constipation, MS/Extremity: Negative for injury and deformity, Skin: Negative for injury, rash, and discoloration, Neuro: Negative for headache, numbness, tingling, and seizure, Exam: 12:22 Constitutional: This is a well developed, well nourished patient who is awake, alert, rn and in no acute distress. Head/Face: Normocephalic, atraumatic. ENT: Dry mucous membranes Cardiovascular: Regular rate and rhythm. No pulse deficits. Respiratory: No increased work of breathing, no retractions or nasal flaring. Abdomen/GI: Soft, non-tender Skin: Warm, dry, no cyanosis MS/ Extremity: Pulses equal, no cyanosis. Neuro: Awake and alert, oriented to person but not place or time. Strength 4 out of 5 throughout. Vital Signs: 11:30 BP 134 / 76; Pulse 85; Resp 16; Temp 97; Pulse Ox 98% ; ko1 11:45 BP 151 / 75; Pulse 90; Resp 14; Pulse Ox 98% ; ko1 13:00 BP 171 / 75; Pulse 79; Resp 18; Pulse Ox 99% ; ko1 14:00 BP 139 / 98; Pulse 101; Resp 19; Pulse Ox 97% ; ko1 16:00 BP 155 / 72; Pulse 78; Resp 15; Pulse Ox 97% ; ko1 MDM: 11:08 Patient medically screened. rn 14:16 Differential Diagnosis: electrolyte abnormality. rn 14:17 Data reviewed: vital signs, nurses notes, lab test result(s), radiologic studies, CT rn scan, plain films, and as a result, I will admit patient. Consideration of Admission/Observation Patient was admitted/placed on observation. Escalation of care including admission/observation considered. Care significantly affected by the following chronic conditions: Hypertension. Counseling: I had a detailed discussion with the patient and/or guardian regarding the historical points, exam findings, and any diagnostic results supporting the discharge/admit diagnosis, lab results, radiology results, the need for further work-up and treatment in the hospital. Special discussion:. 12/14 11:10 Order name: CBC with Diff; Complete Time: 14:15 12/14 11:10 Order name: CMP; Complete Time: 14:15 12/14 11:10 Order name: Lipase; Complete Time: 14:15 12/14 11:10 Order name: Urinalysis w/ reflexes; Complete Time: 14:15 12/14 12:38 Order name: Urine Culture EDMS 12/14 14:16 Order name: Blood Culture Adult (2) rn 12/14 14:16 Order name: Lactate w/ 2H reflex if indic. rn 12/14 15:24 Order name: CBC with Automated Diff EDMS 12/14 15:24 Order name: CBC with Automated Diff EDMS 12/14 15:24 Order name: CBC with Automated Diff EDMS 12/14 15:24 Order name: CBC with Automated Diff EDMS 12/14 15:24 Order name: Comprehensive Metabolic Panel [facility] 12/14 15:24 Order name: Comprehensive Metabolic Panel [facility] 12/14 15:24 Order name: Comprehensive Metabolic Panel [facility] 12/14 15:24 Order name: Comprehensive Metabolic Panel [facility] 12/14 15:24 Order name: Magnesium [facility] 12/14 15:24 Order name: Magnesium [facility] 12/14 15:24 Order name: Magnesium [facility] 12/14 11:10 Order name: CT Head Brain wo Cont; Complete Time: 14:15 rn 12/14 11:10 Order name: CT Abd/Pelvis - IV Contrast Only; Complete Time: 14:15 rn 12/14 11:10 Order name: XRAY Chest (1 view); Complete Time: 14:15 rn 12/14 15:24 Order name: Speech Therapy Consult [facility] 12/14 11:10 Order name: IV Saline Lock; Complete Time: 12:11 rn 12/14 11:10 Order name: Labs collected and sent; Complete Time: 12:11 rn 12/14 12:19 Order name: Labs - recollect needed: recollect green top; Complete Time: 12:33 bd Administered Medications: 12:10 Drug: NS 0.9% IV 1000 ml IV at 1000 ml once Route: IV; Rate: 1000 ml; Site: right ko1 forearm; 15:05 Drug: Rocephin IV 1 grams IV at calculated rate once; Given slow IV push per pharmacy ko1 instructions Route: IV; Rate: calculated rate; Site: left forearm; Disposition Summary: 12/14/23 14:18 Hospitalization Ordered Notes: Hospitalization Status: Inpatient Admission rn Provider: Brandon Coughlin rn Condition: Stable rn Problem: new rn Symptoms: have improved rn Bed/Room Type: Standard rn Location: Telemetry/MedSurg (Inpatient)(12/14/23 17:06) bd Room Assignment: 420(12/14/23 17:06) bd Diagnosis - UTI/ Urinary tract infection, site not specified rn - Altered mental status, unspecified rn - Dehydration rn Forms: - Medication Reconciliation Form rn - SBAR form rn - Leadership Thank You Letter rn Signatures: Dispatcher Dana Wilcox Roman, MD MD rn Oliver, Kathy, RN RN ko1 Corrections: (The following items were deleted from the chart) 13:14 13:11 Allergies: Aspirin; ko1 ko1 14:18 14:17 Special discussion: I discussed with the patient/guardian in detail that at this rn point there is no indication for admission to the hospital. It is understood, however, that if the symptoms persist or worsen the patient needs to return immediately for re-evaluation. rn 14:18 Telemetry/MedSurg (Inpatient) rn bd 14:18 rn bd 17: 14:47 [facility] ER HOLD bd bd 17: 14:47 ERHOLD- bd bd
[2023-12-14] MEDS ORDERED: CEFTRIAXONE 1000 MG/VIAL ONE (14:24)
[2023-12-14] MEDS ORDERED: NA CHLORIDE 0.9% 250 ML ONE (14:53)
[2023-12-14] MEDS ORDERED: DOCUSATE NA 100 MG CAP PO PRN (15:06)
--- NOTE | 2023-12-14 15:34 | P.HP ---
Certification for Inpatient Patient admitted to: Inpatient With expected LOS: >2 Midnights Patient will require the following post-hospital care: Other ([facility]) Practitioner: I am a practitioner with admitting privileges, knowledge of patient current condition, hospital course, and medical plan of care. Services: Services provided to patient in accordance with Admission requirements found in Title 42 Section 412.3 of the Code of Federal Regulations Patient History Date of Service: 12/14/23 Reason for admission: Dehydration, CoVID, UTI History of Present Illness: Ms. Meléndez apparently was recently discharged from [facility] to [facility]. She appears dehydrated and tested positive for CoVid. She was found to have a UTI in the ED. All information obtained from [facility] paperwork. She will be admitted for hydration and treatment of infection. Home medications list reviewed: Yes (from [place]) - Past Medical/Surgical History Has patient received pneumonia vaccine in the past: Yes -: Schizophrenia -: HTN -: KALIN -: HLD Past Surgical History: Reviewed- Non-Contributory Psychosocial/ Personal History: lives in locked unit at [facility]. Just released from [facility] - Social History Smoking Status: Unknown if ever smoked Alcohol use: No CD- Drugs: No Caffeine use: No Place of Residence: [facility] Review of Systems from [place] General: Weakness Physical Examination - Physical Exam General: Disheveled, Delirious, Other (appears dehydrated) HEENT: Atraumatic, Normocephalic Neck: Supple Respiratory: Normal air movement Cardiovascular: No edema, Normal pulses Capillary refill: <2 Seconds Gastrointestinal: Hypoactive Musculoskeletal: No clubbing, No swelling Integumentary: Other (scattered extremity ecchymosis) Neurological: Abnormal affect, Dementia Lymphatics: No axilla or inguinal lymphadenopathy Urinary: Other (brief) External genitalia: Deferred Rectal: Deferred - Studies Laboratory Data (last 24 hrs) 12/14/23 12/14/23 12:30 12:00 WBC 8.90 Hgb 12.0 Hct 35.5 L Plt Count 444 H Sodium 145 Potassium 4.0 BUN 43 H Creatinine 1.31 H Glucose 93 Total Bilirubin 0.4 AST 27 ALT 27 Alkaline Phosphatase 70 Lipase 43 Assessment and Plan - Plan Dehydration: D5NS at 150ml/hr Monitor I&O UTI: Rocephin 1 gm IVPB daily CoVid: monitor pulse ox, vital signs, pulmonary toilet Essential Hypertension: Continue Lisinopril monitor and trend Hypothyroidism: continue Levothyroxine Schizophrenia: Continue psych medications fall precautions, bedcheck, placement close to Nsg station, chemical restraint for safety as necessary Discharge Plan: [facility] Plan to discharge in: 48 Hours - Advance Directives Does patient have a Living Will: No Does patient have a Durable POA for Healthcare: No
[2023-12-14] MEDS: ZIPRASIDONE MESYLA 20 MG/VIAL IM ONE (15:36)
[2023-12-14] MEDS: WATER FOR INJ,STERILE 10 ML IM PRN (15:40)
[2023-12-14] MEDS: D5 0.9 NS 1,000 ML IV SCH (15:40)
[2023-12-14] MEDS: ENOXAPARIN 40 MG/0.4 ML SQ SCH (16:00)
[2023-12-14] MEDS ORDERED: ENOXAPARIN 40 MG/0.4 ML SQ ONE (17:59)
[2023-12-14] MEDS ORDERED: D5W 1,000 ML IV ONE (17:59)
[2023-12-14 18:41] VITALS: BMI 21.1
[2023-12-14] MEDS: BUSPIRONE HCL 5 MG TABLET PO SCH (20:00)
[2023-12-14] MEDS: RISPERIDONE 1 MG TABLET PO SCH (20:01)
[2023-12-14] MEDS: MIRTAZAPINE 15 MG TAB PO SCH (20:01)
[2023-12-14] MEDS ORDERED: BUSPIRONE HCL 15 MG TABLET PO SCH (21:00)
[2023-12-14] MEDS: HALOPERIDOL LACT 5 MG/ML INJ IM PRN (21:42)
[2023-12-15 03:06] LABS: Absolute Lymphocytes (CBC) 2.1 K/uL (0.7-4.9); Hematocrit 29.5 % (36.0-45.0); Lymphocytes % 26.5 % (15.3-44.8); MPV 7.5 fL (7.6-11.3); Platelets 396 thou/uL (152-406); RBC Red Blood Cell Count 3.17 M/uL (3.86-4.86)
[2023-12-15 03:08] LABS: Albumin 2.4 g/dL (3.4-5.0); Bilirubin Total 0.3 mg/dL (0.2-1.0); Magnesium 1.6 mg/dL (1.6-2.4); Potassium 3.4 mEq/L (3.5-5.1); Protein, Total 6.3 g/dL (6.4-8.2)
[2023-12-15] MEDS: KCL 20 MEQ/100 mL IVPB 20 MEQ/100 ML BAG IV SCH ×2 (03:30→16:03)
[2023-12-15] MEDS: MAGNESIUM SULFATE 1 gm IVPB 1 GM/100 ML BAG IV ONE (03:30)
[2023-12-15] MEDS: LEVOTHYROXINE SOD 0.025 MG TAB PO SCH (03:38)
[2023-12-15] MEDS ORDERED: LEVOTHYROXINE SOD 0.125 MG TAB PO SCH (06:30)
[2023-12-15] MEDS: CEFTRIAXONE 1,000 MG in NA CHLORIDE 0.9% 50 ML IVPB SCH (07:21)
[2023-12-15] MEDS: lisinopriL 10 MG TAB PO SCH (07:21)
[2023-12-15] MEDS: FERROUS SULFATE 325 MG TAB PO SCH (07:21)
[2023-12-15] MEDS: FLUOXETINE 10 MG CAP PO SCH (07:22)
[2023-12-15 08:38] VITALS: O2SAT 95
[2023-12-15] MEDS: HYDRALAZINE HCL 20 MG/ML VIAL IV ONE (08:44)
--- NOTE | 2023-12-15 10:15 | P.PN ---
Subjective Date of Service: 12/15/23 Chief Complaint: Dehydration, CoVID, UTI Subjective: Improving Review of Systems as per HPI Physical Examination - Vital Signs Temperature: 97.7 F Blood Pressure: 183/72 Pulse: 78 Respirations: 16 Pulse Ox (%): 95 - Physical Exam General: Oriented x1, Other (calmer than previous visit) HEENT: Atraumatic, Normocephalic Neck: Supple Respiratory: Normal air movement Cardiovascular: No edema, Regular rate/rhythm Capillary refill: <2 Seconds Gastrointestinal: Soft and benign Musculoskeletal: No clubbing, No swelling Integumentary: Other (scattered extremity ecchymosis) Neurological: Normal tone, Other (Had Haldol IM in the early am) Lymphatics: No axilla or inguinal lymphadenopathy External genitalia: Deferred Rectal: Deferred - Studies Laboratory Data (last 24 hrs) 12/14/23 12/14/23 12:30 12:00 WBC 8.90 Hgb 12.0 Hct 35.5 L Plt Count 444 H Sodium 145 Potassium 4.0 BUN 43 H Creatinine 1.31 H Glucose 93 Total Bilirubin 0.4 AST 27 ALT 27 Alkaline Phosphatase 70 Lipase 43 Microbiology Data (last 24 hrs): 12/14/23 14:46 Blood - Blood Anaerobic Blood Culture - Final Assessment And Plan - Plan Dehydration: D5NS at 150ml/hr Monitor I&O Creatinine improvement, H/H dilutional drop, appears less dessicated, albumin quite low UTI: Rocephin 1 gm IVPB daily, await culture and sensitivities CoVid: monitor pulse ox, vital signs, pulmonary toilet Essential Hypertension: Continue Lisinopril - until speech eval for swallowing, hydralazine 5mg IV given monitor and trend Hypothyroidism: continue Levothyroxine Schizophrenia: Continue psych medications fall precautions, bedcheck, placement close to Nsg station, chemical restraint for safety as necessary Will order PT eval prior to return to [place] Discharge Plan: Custodial Plan to discharge in: 48 Hours
--- NOTE | 2023-12-15 14:38 | P.DS ---
Admission Date: 12/14/23 Discharge Date: 12/15/23 Disposition: TRANSFER TO [facility] Discharge Condition: [facility]IR Reason for Admission: Dehydration, CoVID, UTI Brief History of Present Illness: Ms. Meléndez apparently was recently discharged from [facility] to [facility]. She appears dehydrated and tested positive for CoVid. She was found to have a UTI in the ED. All information obtained from [facility] paperwork. She will be admitted for hydration and treatment of infection. Hospital Course: Ms. Meléndez was hydrated overnight with an improvement in mental status, creatinine, and patient is at her stated baseline. She will need outpatient antibiotics for her urinary tract infection. She will be medically cleared to return to [facility]. Vital Signs/Physical Exam: Temp Pulse Resp BP Pulse Ox 98.2 F 65 18 158/76 H 98 12/15/23 11:43 12/15/23 11:43 12/15/23 11:43 12/15/23 11:43 12/15/23 11:43 General: In no apparent distress, Oriented x1 HEENT: Atraumatic, Normocephalic Neck: Supple Respiratory: Normal air movement Cardiovascular: No edema, Normal pulses Capillary refill: <2 Seconds Gastrointestinal: Soft and benign Musculoskeletal: No clubbing, No swelling Integumentary: Other (healing ecchymosis to extremities) Neurological: Normal tone Lymphatics: No axilla or inguinal lymphadenopathy External genitalia: Deferred Rectal: Deferred Laboratory Data at Discharge: WBC 7.80 thou/uL (4.3-10.9) 12/15/23 02:45 Hgb 10.0 g/dL (12.0-15.0) L D 12/15/23 02:45 Hct 29.5 % (36.0-45.0) L 12/15/23 02:45 Plt Count 396 thou/uL (152-406) 12/15/23 02:45 Sodium 141 mEq/L (136-145) 12/15/23 02:45 Potassium 3.4 mEq/L (3.5-5.1) L D 12/15/23 02:45 BUN 26 mg/dL (7-18) H 12/15/23 02:45 Creatinine 1.06 mg/dL (0.55-1.02) H 12/15/23 02:45 Glucose 163 mg/dL (74-106) H 12/15/23 02:45 Magnesium 1.6 mg/dL (1.6-2.4) 12/15/23 02:45 Total Bilirubin 0.3 mg/dL (0.2-1.0) 12/15/23 02:45 AST 29 U/L (15-37) 12/15/23 02:45 ALT 24 U/L (13-56) 12/15/23 02:45 Alkaline Phosphatase 62 U/L (45-117) 12/15/23 02:45 Lipase 43 U/L (13-75) 12/14/23 12:30 Home Medications: Buspirone HCl [Buspar] 10 mg PO TID 12/14/23 Docusate [Colace Cap*] 100 mg PO BID 12/14/23 Ferrous Sulfate [Ferrous Sulfate*] 325 mg PO DAILY 12/14/23 Fluoxetine HCl [Prozac*] 10 mg PO DAILY 12/14/23 Haloperidol Lac [Haldol*] 5 mg IM DAILYPRN PRN 12/14/23 Levothyroxine Sodium 25 mcg PO DAILY 12/14/23 Lisinopril [Zestril] 10 mg PO DAILY 12/14/23 Melatonin 6 mg PO BEDTIME 12/14/23 Mirtazapine [Remeron*] 15 mg PO BEDTIME 12/14/23 Risperidone [Risperdal] 1 mg PO BEDTIME 12/14/23 Amoxicillin/Potassium Clav [Augmentin Es-600 Suspension] 1 tsp PO BID #100 ml 12/15/23 Buspirone HCl [Buspar*] 10 mg PO TID tab 12/15/23 Docusate [Colace Cap*] 100 mg PO DAILY PRN cap 12/15/23 Ferrous Sulfate [Ferrous Sulfate*] 325 mg PO DAILY tab 12/15/23 Fluoxetine HCl [Prozac*] 10 mg PO DAILY cap 12/15/23 Haloperidol Lac [Haldol*] 5 mg IM DAILY PRN vial 12/15/23 Mirtazapine [Remeron*] 15 mg PO BEDTIME tab 12/15/23 lisinopriL [Prinivil*] 10 mg PO DAILY tab 12/15/23 risperiDONE [Risperdal 1 mg tab*] 1 mg PO BEDTIME tab 12/15/23 New Medications: Amoxicillin/Potassium Clav [Augmentin Es-600 Suspension] 1 tsp PO BID #100 ml Physician Discharge Instructions: Patient is a resident at: [address] [address] P:[phone]/ F:[phone] Diet: soft/puree Activity: Fall precautions Followup: Emma Velasquez MD [Primary Care Provider] -
[2023-12-15 16:55] VITALS: TEMP 98.7
[2023-12-15 20:35] VITALS: BP 160/89
== END 2023-12-15 23:17 | DRG 689 ==
LOC: ER 11:04 → ERHOLD 14:59 → 4TH 17:08
PROVIDERS: ADMIT Hospitalist; ATTEND Hospitalist
DX: N39.0 Urinary tract infection, site not specified (principal); U07.1 COVID-19; E03.9 Hypothyroidism, unspecified; I10 Essential (primary) hypertension; E86.0 Dehydration; E78.5 Hyperlipidemia, unspecified; F20.9 Schizophrenia, unspecified; F03.90 Unspecified dementia, unspecified severity, without behavioral disturbance, psychotic disturbance, mood disturbance, and anxiety; Z79.890 Hormone replacement therapy; Z79.899 Other long term (current) drug therapy
CPT/HCPCS: 36415; 70450; 71045; 74177; 80053; 81001; 82947; 83605; 83690; 83735; 84132; 85025; 87040; 87077; 87086; 87088; 87186; 92610; 96374; 99285; J0360; J0696; J1630; J1650; J3475; J3480; J3486; J7030; J7042; J7050; Q9967

== ENCOUNTER 2024-01-19 18:07 | Inpatient (IN) | payer OTHER ==
--- OUTSIDE RECORDS SUMMARY | 2024-01-19 18:10 | XMS REPORT | Continuity of Care Document ---
Author Name Unknown Address [address] [facility] [address] [place] [address] [facility] Address [address] [facility] [facility] [address] [place] [address] Care Team Providers Care Flight Technician Name Role Phone BHARATHI BOJORQUEZ Primary Care Physician DR ARTIE Modi Attending Clinician DR ARTIE Modi Attending Clinician Diego child GC_SEFP_Rivera_A Attending Clinician Unavailable Madelyn Gann MD Attending Clinician [phone] MADELYN GANN Attending Clinician Can iltheo 2, [facility] Attending Clinician Unavailable Doctor Unassigned, [place] Attending Clinician U DR ARTIE Gary Admitting Clinician ARIK Diaz Admitting Clinician Unavailable GC_SEFP_Rivera_A Admitting Clinician Unavailable Payers Payer Name Policy Type Policy Number Effective Date Expirati on Date Source [id number] [id number] 2023 00:00:00 [employer] (MEDICARE REPLACEMENT/ADVAN TAGE - PPO) [id number] Problems Condition Name Condition Details Condition Category Status Onset Date Resolution Date Last Treatment Date Treating Clinician Comments Source Hyperlipid emia Hyperlipid emia Disease Active 10-29 00:00: 00 [facility] Allergic conjunctiv itis, bilateral Allergic conjunctiv itis, bilateral Disease Active 10-29 00:00: 00 [facility] Other seasonal allergic rhinitis Other seasonal allergic rhinitis Disease Active 10-29 00:00: 00 [facility] Essential hypertensi on Essential hypertensi on Disease Active 10-29 00:00: 00 [facility] Iron deficiency anemia due to chronic blood loss Iron deficiency anemia due to chronic blood loss Disease Active 10-29 00:00: 00 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 Fatigue Fatigue Disease Active 10-29 00:00: 00 [facility] Allergies, Adverse Reactions, Alerts Allergy Name Allergy Type Status Severity Reaction(s) Onset Date Inactive Date Treating Clinician Comments Source No Known Allergie s DA Active [facility] NO KNOWN ALLERGIE S Drug Class Active [facility] Social History Social Habit Start Date Stop Date Quantity Comments Source Exposure to SARS-CoV-2 (event) Unable to assess [facility] Alcohol intake 2020-09-22 00:00:00 2020-09-22 00:00:00 Ex-drinker (finding) [facility] Tobacco use and exposure 2020-02-12 00:00:00 2020-02-12 00:00:00 Never used [facility] Cigarettes smoked current (pack per day) - Reported 2020-02-12 00:00:00 2020-02-12 00:00:00 [facility] Cigarette pack-years 2020-02-12 00:00:00 2020-02-12 00:00:00 [facility] Tobacco Comment 2020-02-12 00:00:00 2020-02-12 00:00:00 social smoker [facility] History of tobacco use 1957-10-17 00:00:00 2015-02-11 00:00:00 Cigarette Smoker [facility] Sex Assigned At 1940 00:00:00 1940 00:00:00 [facility] Smoking Status Start Date Stop Date Source Former smoker 2020-02-12 00:00:00 2020-02-12 00:00:00 [facility] Unknown if ever smoked [facility] Medications Ordered Medication Name Filled Medication Name Start Date Stop Date Current Medication? Ordering Clinician Indication Dosage Frequency Signature (SIG) Comments Components Source levothyroxi ne 50 mcg tablet 03-04 00:00: 00 Yes [id number] TAKE 1 TABLET BY MOUTH EVERY MORNING. Keep on file. [facility] Cholecalcif mook, Vitamin D3, (VITAMIN D3) 2,000 unit tablet 2019-10 23:55: 44 Yes 2{tbl} Take 2 tablets by mouth daily. [facility] Cholecalcif mook, Vitamin D3, (VITAMIN D3) 2,000 unit tablet 2019-10 17:55: 44 Yes 2{tbl} Take 2 tablets by mouth daily. [facility] losartan 50 mg tablet 2019-10 00:00: 00 Yes [id number] 50mg Take 1 tablet by mouth every morning. [facility] amLODIPine 10 mg tablet 2019-10 00:00: 00 Yes [id number] TAKE 1 TABLET BY MOUTH EVERY NIGHT AT BEDTIME [facility] Cholecalcif mook, Vitamin D3, (VITAMIN D3) 2,000 unit tablet 02-11 18:57: 37 Yes 2{tbl} Take 2 tablets by mouth daily. [facility] levothyroxi ne 50 mcg tablet 02-11 00:00: 00 03-04 00:00 :00 No [id number] TAKE 1 TABLET BY MOUTH EVERY MORNING. Keep on file. [facility] losartan 50 mg tablet 2018-10 00:00: 00 09-15 00:00 :00 No [id number] 50mg Take 1 tablet by mouth every morning. [facility] amLODIPine 10 mg tablet 2018-10 00:00: 00 09-15 00:00 :00 No [id number] TAKE 1 TABLET BY MOUTH EVERY NIGHT AT BEDTIME [facility] amLODIPine 10 mg tablet 07-06 00:00: 00 Yes [id number] TAKE 1 TABLET BY MOUTH EVERY NIGHT AT BEDTIME [facility] losartan 50 mg tablet 07-06 00:00: 00 Yes [id number] 50mg Take 1 tablet by mouth every morning. [facility] LOSARTAN 50 mg tablet 07-03 00:00: 07-06 00:00 :00 No 50mg TAKE 1 TABLET BY MOUTH EVERY MORNING [facility] amLODIPine 10 mg tablet 07-03 00:00: 00 07-06 00:00 :00 No [id number] TAKE 1 TABLET BY MOUTH EVERY NIGHT AT BEDTIME [facility] LOSARTAN 50 mg tablet 06-28 00:00: 00 Yes [id number] 50mg TAKE 1 TABLET BY MOUTH EVERY MORNING [facility] AMLODIPINE 10 mg tablet 06-28 00:00: 00 07-02 00:00 :00 No [id number] TAKE 1 TABLET BY MOUTH EVERY NIGHT AT BEDTIME [facility] levothyroxi ne 50 mcg tablet 06-20 00:00: 00 02-11 00:00 :00 No [id number] TAKE 1 TABLET BY MOUTH EVERY MORNING [facility] levothyroxi ne 50 mcg tablet 05-11 00:00: 00 06-20 17:33 :41 No [id number] TAKE 1 TABLET BY MOUTH EVERY MORNING [facility] amLODIPine 10 mg tablet 05-11 00:00: 00 06-20 00:00 :00 No [id number] TAKE 1 TABLET BY MOUTH EVERY NIGHT AT BEDTIME [facility] losartan 50 mg tablet 05-11 00:00: 00 06-20 00:00 :00 No 50mg Take 1 tablet by mouth every morning. [facility] Vital Signs Vital Name Observation Time Observation Value Comments S ource Height 2023-12-05 14:57:00 162.56 CM Weight 2023-12-05 14:57:00 70 KG Height 2023-12-05 14:57:00 162.56 CM Weight 2023-12-05 14:57:00 70 KG Procedures Procedure Date / Time Performed Performing Clinician Source FREE T4 2019-06-28 16:19:00 Damari Gann [facility] THYROID STIMULATING HORMONE 2019-06-28 16:19:00 Madelyn Gann [facility] COMP. METABOLIC PANEL ([id number]) 2019-06-28 16:19:00 Madelyn Gann [facility] CBC WITH DIFFERENTIAL 2019-06-28 16:19:00 Madelyn Kent [facility] AGREEMENTS AUTHORIZATIONS AND IRREVOCABLE ASSIGNMENTS (FORM 2001) 2019-06-28 05:01:00 Doctor Unassigned, [place] [facility] Encounters Start Date/Time End Date/Time Encounter Type Admission Type Attending [facility] Care Department Encounter ID Source 2023-12-05 14:37:00 2023-12-05 18:45:00 Emergency E ARTIE ALVAREZ ROBERT [facility] [id number] [facility] 2023-12-05 14:37:00 2023-12-05 14:37:00 Emergency E [facility] [id number] [facility] 2023-11-30 00:00:00 2023-11-30 00:00:00 Outpatient GC_SEFP_Riv era_A PRIV PRIV [id number] [facility] 2023-11-08 00:00:00 2023-11-08 00:00:00 Outpatient GC_SEFP_Riv era_A PRIV PRIV [id number] [facility] 2021-08-27 00:00:00 2021-08-27 00:00:00 Refill Madelyn Gann [facility] [id number] 350.1.13.10 [id number] [facility] 2021-03-03 00:00:00 2021-03-03 00:00:00 Refill Madelyn Gann [facility] 1.2.840.114 350.1.13.10 4.2.7.2.[id number] [facility] 2020-09-22 08:57:07 2020-09-23 08:49:12 Telemedici ne Visit Madelyn Gann [facility] 1.2.840.114 350.1.13.10 4.2.7.2.[id number] [facility] 2020-09-22 15:40:00 2020-09-22 15:40:00 Outpatient R WALLACE MADELYN [facility] [id number] [facility] 2020-09-15 00:00:00 2020-09-15 00:00:00 Refill Wallace Madelyn Katerina [facility] 1.2.840.114 350.1.13.10 4.2.7.2.[id number] [facility] 2020-08-26 15:20:00 2020-08-26 15:20:00 [facility] [id number] [facility] 2020-08-18 16:35:00 2020-08-18 16:35:00 [facility] [id number] [facility] 2020-08-14 13:40:00 2020-08-14 13:40:00 Outpatient R SCOTT GANNBETH [facility] [id number] [facility] 2020-06-20 00:00:00 2020-06-20 00:00:00 Refill Madelyn Gann Katerina [facility] 1.2.840.114 350.1.13.10 4.2.7.2.[id number] [facility] 2020-02-12 07:45:11 2020-02-12 14:16:57 Telemedici ne Visit Wallace Madelyn Katerina [facility] 1.2.840.114 350.1.13.10 4.2.7.2.[id number] [facility] 2020-02-12 13:40:00 2020-02-12 13:40:00 [facility] [id number] 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 2019-07-02 00:00:00 2019-07-02 00:00:00 Refill Madelyn Gann [facility] 1.2.840.114 350.1.13.10 4.2.7.2.[id number] [facility] 2019-06-28 00:00:00 2019-06-28 00:00:00 Orders Only Doctor Unassigned, [place] [facility] 1.2.840.114 350.1.13.10 4.2.7.2.[id number] [facility] 2019-06-20 00:00:00 2019-06-20 00:00:00 Refill Madelyn Gann [facility] 1.2.840.114 350.1.13.10 4.2.7.2.[id number] [facility] 2019-06-19 00:00:00 2019-06-19 00:00:00 Refill Madelyn Gann [facility] 1.2.840.114 350.1.13.10 4.2.7.2.[id number] [facility] Results Test Description Test Time Test Comments Results Result Co mments Source AMMONIA [id number] 17:34:00* Test Item Value Reference Range Interpretation Comme nts AMMONIA (test code = 54A) <10 umol/L 11-32 L DRUGS OF [id number] 17:27:00* Test Item Value Reference Range Interpretation [...] the FDA and the [employer] (CAP) are more stringent than those required for this test. Therefore, the result should be interpreted with caution and close attention to other clinical and epidemiological data LIVER [id number] 16:05:00* Test Item Value Reference Range Interpretation [...] code = 31A) 9 IU/L 10-49 L [id number] 15:57:00* Test Item Value Reference Range Interpretation Comme nts ACETAMINPH (test code = 94M) <0.2 mg/dL 1.2-2.5 L ALCOHOL BLOOD (ETOH)2023-12-05 15:57:00* Test Item Value Reference Range Interpretation Comme nts ETOH (test code = HALC) ETHANOL * The result is to be used only for medical purposes ALCOHOL (test code = 56A) <10 mg/dL <=10 CT HEAD W/O [id number] 15:55:43 [facility] 1940 Sex: FExam: CT [...] by: Arik Cantu MD 12/05/2023 03:55 PM [facility] [id number] METABOLIC [id number] 15:50:00* Test Item Value Reference Range Interpretation [...] (test code = 31A) 12 IU/L 10-49 [id number] 15:49:00* Test Item Value Reference Range Interpretation [...] = MDIFF) NO XR CHEST 1 VIEW [id number] 15:11:49 [facility] 1940 Sex: FCHEST, SINGLE VIEWLOCATION [id number]: Confusion.A single view of the chest was [...] by: Osmany Valdez MD 12/05/2023 03:11 PM VISUAL COORDINATOR [id number] STIMULATING [id number] 17:57:00* Test Item Value Reference Range Interpretation Comme nts TSH (test code = 3578900108) See_Comment [Automated Pharm[employer] ge] The system which generated this result transmitted reference range: 0.45 - 4.70 mIU/L. The reference range was not used to interpret this result as normal/abnormal. Lab Interpretation (test code = 23552-0) [facility] [id number] 17:57:00 * Test Item Value Reference Range Interpretation Comme nts TSH (test code = 1814875380) See_Comment [Automated Pharm[employer] Vilynx] The system which generated this result transmitted reference range: 0.45 - 4.70 mIU/L. The reference range was not used to interpret this result as normal/abnormal. Lab Interpretation (test code = 57956-8) Normal [facility] [id number] 17:43:00* Test Item Value Reference Range Interpretation Comme nts FREE T4 (test code = 0289320566) 1.32 ng/dL 0.78-2.2 Lab Interpretation (test cod e = 09328-0) Normal [facility] [id number] 17:43:00* Test Item Value Reference Range Interpretation Comme nts FREE T4 (test code = 7532467988) 1.32 ng/dL 0.78-2.2 Lab Interpretation (test cod e = 05112-2) Normal [facility]. METABOLIC PANEL (41959)2019-06-28 17:29:00* Test Item Value Reference Range Interpretation Comme nts NA (test code = 7467627570) 143 mmol/L 135-145 K (test code = 3585511311) 4.3 mmol/L 3.5-5 CL (test code = 0030497055) 110 mmol/L 98-108 H CO2 TOTAL (test code = 1894975232) 27 mmol/L 23-31 AGAP (test code = 1291617943) 2-16 BUN (test code = 2658860750) 17 mg/dL 7-23 GLUCOSE (test code = 4370380631) 98 mg/dL 70-110 CREATININE (test code = 7093352626) 0.87 mg/dL 0.5-1.04 TOTAL BILI (test code = 4777552760) 0.4 mg/dL 0.1-1.1 CALCIUM (test code = 5111592432) 9.9 mg/dL 8.6-10.6 T PROTEIN (test code = 7679823558) 7.0 g/dL 6.3-8.2 ALBUMIN (test code = 4897134883) 4.3 g/dL 3.5-5 ALK PHOS (test code = 7335387885) 60 U/L 34-122 ALT(SGPT) (test code = 2570858512) 17 U/L 9-51 AST(SGOT) (test code = 2487613505) 24 U/L 13-40 eGFR Calculation (Non-) (test code = 9541140925) mL/min/1.73m2 eGFR Calculation () (test code = 4969514410) mL/min/1.73m2 AALIYAH (test code = AALIYAH) Association [...] imaging tests). Lab Interpretation (test code = 10421-9) Abnormal [facility] METABOLIC PANEL (95293)2019-06-28 17:29:00* Test Item Value Reference Range Interpretation Comme nts NA (test code = 2907995342) 143 mmol/L 135-145 K (test code = 9164113143) 4.3 mmol/L 3.5-5 CL (test code = 5964522253) 110 mmol/L 98-108 H CO2 TOTAL (test code = 9873570193) 27 mmol/L 23-31 AGAP (test code = 4670560483) 2-16 BUN (test code = 3420595711) 17 mg/dL 7-23 GLUCOSE (test code = 1890596872) 98 mg/dL 70-110 CREATININE (test code = 9398082852) 0.87 mg/dL 0.5-1.04 TOTAL BILI (test code = 6123248919) 0.4 mg/dL 0.1-1.1 CALCIUM (test code = 8251320814) 9.9 mg/dL 8.6-10.6 T PROTEIN (test code = 8449658879) 7.0 g/dL 6.3-8.2 ALBUMIN (test code = 6295206691) 4.3 g/dL 3.5-5 ALK PHOS (test code = 0957295908) 60 U/L 34-122 ALT(SGPT) (test code = 1083859233) 17 U/L 9-51 AST(SGOT) (test code = 0691459966) 24 U/L 13-40 eGFR Calculation (Non-) (test code = 6521674276) mL/min/1.73m2 eGFR Calculation () (test code = 9898154119) mL/min/1.73m2 AALIYAH (test code = AALIYAH) Association of Glomerular Filtration Rate (GFR) and Staging of Kidney Disease*+ + + +| GFR (mL/min/1.73 m2)?| With Kidney Damage?|?Without Kidney Damage+ --------+ --------+ +|?>90?|?S riteshe one?|? Normal?+ ---------+ ---------+ +|?60-89? |?Stage two?|? [...] imaging tests). Lab Interpretation (test code = 17485-8) [facility] [id number] 17:18:00* Test Item Value Reference Range Interpretation Comme nts WBC (test code = 6690-2) See_Comment [Automated Pharminexa Vilynx] The system which generated this result transmitted reference range: 4.30 - 11.10 10*3/?L. The reference range was not used to interpret this result as normal/abnormal. RBC (test code = 789-8) See_Comment L [Automated Pharminexa ge] The system which generated this result [...] g/dL 31.6-35.1 L RDW-SD (test code = 13884-9) 46.6 fL 39-49.9 RDW-CV (test code = 788-0) 12.5 % 12-15.5 PLT (test code = 777-3) See_Comment [Automated Pharminexa ge] The system which generated this result transmitted reference range: 166 - 358 10*3/?L. The reference range was not used to interpret this result as normal/abnormal. MPV (test code = 65029-8) 10.8 fL 9.5-12.9 NRBC/100 WBC (test code = 4745129441) See_Comment [Automated me ssage] The system which generated this result transmitted reference range: 0.0 - 10.0 /100 WBCs. The reference range was not used to interpret this result as normal/abnormal. NRBC x10^3 (test code = 8768657830) <0.01 See_Comment [Automated messa ge] The system which generated this result transmitted reference range: 10*3/?L. The reference range was not used to interpret this result as normal/abnormal. GRAN MAT (NEUT) % (test code = 770-8) 43.3 % IMM GRAN % (test code = 9889170637) 0.20 % LYMPH % (test code = 736-9) 44.8 % MONO % (test code = 5905-5) 7.3 % EOS % (test code = 713-8) 3.4 % BASO % (test code = 706-2) 1.0 % GRAN MAT x10^3(ANC) (test code = 5608844825) 2.27 10*3/uL 1.88-7.09 IMM GRAN x10^3 (test code = 0689983493) <0.03 0-0.06 LYMPH x10^3 (test code = 731-0) 2.35 10*3/uL 1.32-3.29 MONO x10^3 (test code = 742-7) 0.38 10*3/uL 0.33-0.92 EOS x10^3 (test code = 711-2) 0.18 10*3/uL 0.03-0.39 BASO x10^3 (test code = 704-7) 0.05 10*3/uL 0.01-0.07 Lab Interpretation (test code = 10991-8) Abnormal [facility] WITH [id number] 17:18:00* Test Item Value Reference Range Interpretation [...] g/dL 31.6-35.1 L RDW-SD (test code = 40209-3) 46.6 fL 39-49.9 RDW-CV (test code = 788-0) 12.5 % 12-15.5 PLT (test code = 777-3) See_Comment [Automated messa ge] The system which generated this result transmitted reference range: 166 - 358 10*3/?L. The reference range was not used to interpret this result as normal/abnormal. MPV (test code = 58443-0) 10.8 fL 9.5-12.9 NRBC/100 WBC (test code = 9859512061) See_Comment [Automated [employer] ssage] The system which generated this result transmitted reference range: 0.0 - 10.0 /100 WBCs. The reference range was not used to interpret this result as normal/abnormal. NRBC x10^3 (test code = 1805550451) <0.01 See_Comment [Automated Pharminexa ge] The system which generated this result transmitted reference range: 10*3/?L. The reference range was not used to interpret this result as normal/abnormal. GRAN MAT (NEUT) % (test code = 770-8) 43.3 % IMM GRAN % (test code = 0296848569) 0.20 % LYMPH % (test code = 736-9) 44.8 % MONO % (test code = 5905-5) 7.3 % EOS % (test code = 713-8) 3.4 % BASO % (test code = 706-2) 1.0 % GRAN MAT x10^3(ANC) (test code = 3875403820) 2.27 10*3/uL 1.88-7.09 IMM GRAN x10^3 (test code = 2185757445) <0.03 0-0.06 LYMPH x10^3 (test code = 731-0) 2.35 10*3/uL 1.32-3.29 MONO x10^3 (test code = 742-7) 0.38 10*3/uL 0.33-0.92 EOS x10^3 (test code = 711-2) 0.18 10*3/uL 0.03-0.39 BASO x10^3 (test code = 704-7) 0.05 10*3/uL 0.01-0.07 Lab Interpretation (test code = 14137-6) Abnormal [facility]"
[2024-01-19] MEDS ORDERED: NA CHLORIDE 0.9% 500 ML ONE (18:54)
--- NOTE | 2024-01-19 19:02 | RAD REPORT ---
EXAM DESCRIPTION: RAD - Femur Left - 01/19/2024 6:43 pm CLINICAL HISTORY: PAIN COMPARISON: No comparisons FINDINGS: Subcapital fracture is seen of the proximal left femur with varus angulation. No dislocati on.
--- NOTE | 2024-01-19 19:02 | RAD REPORT ---
EXAM DESCRIPTION: RAD - Chest Single View - 01/19/2024 6:43 pm CLINICAL HISTORY: fall Chest pain. COMPARISON: Chest Single View dated 12/14/2023 FINDINGS: Portable technique limits examination quality. The lungs are grossly clear. The heart is normal in size. No displaced fractures. IMPRESSION: No acute intrathoracic process suspected.
--- NOTE | 2024-01-19 19:02 | RAD REPORT ---
EXAM DESCRIPTION: RAD - Pelvis - 01/19/2024 6:43 pm CLINICAL HISTORY: fall COMPARISON: No comparisons FINDINGS: Diffuse osteopenia. Subcapital fracture of the proximal left femur is seen with varus angu lation.
[2024-01-19 19:09] LABS: Absolute Basophils 0.1 K/uL (0-0.5); Absolute Eosinophils 0.3 K/uL (0-0.5); Absolute Lymphocytes (CBC) 1.1 K/uL (0.7-4.9); Absolute Monocytes 0.6 K/uL (0.1-1.3); Absolute Neutrophil 5.7 K/uL (1.8-8.0); Basophils % 0.8 % (0-1.3); Eosinophils % 4.1 % (0-4.4); Hematocrit 31.8 % (36.0-45.0); Hemoglobin 10.7 g/dL (12.0-15.0); Lymphocytes % 14.3 % (15.3-44.8); MCH 31.8 pg (27.0-35.0); MCHC 33.6 g/dL (32.0-36.0); MCV 94.5 fL (80-100); MPV 7.9 fL (7.6-11.3); Monocytes % 8.3 % (3.3-12.3); Neutrophils % 72.5 % (41.7-73.7); Platelets 363 thou/uL (152-406); RBC Red Blood Cell Count 3.37 M/uL (3.86-4.86); Red Cell Distribution Width 14.1 % (12.1-15.2)
[2024-01-19 19:16] LABS: PT Prothrombin Time 11.3 SECONDS (9.5-12.5); Protime INR 1.03
[2024-01-19 19:29] LABS: Albumin 2.8 g/dL (3.4-5.0); Albumin/Globulin Ratio 0.6 (1.1-1.8); Anion Gap 7.7 mEq/L (5.0-15.0); Bilirubin Direct 0.1 mg/dL (0-0.2); Bilirubin Indirect, Calculated 0.2 mg/dL (0.2-0.8); Bilirubin Total 0.3 mg/dL (0.2-1.0); Globulin 4.4 g/dL (2.3-3.5); Magnesium 2.2 mg/dL (1.6-2.4); Potassium 3.7 mEq/L (3.5-5.1); Protein, Total 7.2 g/dL (6.4-8.2)
--- NOTE | 2024-01-19 20:28 | RAD REPORT ---
EXAM DESCRIPTION: CT - Head C Spine Cap Wo Con - 01/19/2024 7:58 pm CLINICAL HISTORY: Trauma, head and neck injury. Chest, abdomen and pelvis pain. fall COMPARISON: <Comparisons> TECHNIQUE: CT head without contrast. CT cervical spine without contrast with coronal and sagittal reformatted images. CT chest, abdomen and pelvis without contrast with coronal and sagittal reformatted images of the spi ne. All CT scans are performed using dose optimization technique as appropriate and may include automated exposure control or mA/KV adjustment according to patient size. FINDINGS: CT HEAD WITHOUT CONTRAST: No intracranial hemorrhage, hydrocephalus or extra-axial fluid collection. Moderate generalized brain atrophy is present with moderate periventricular and deep white matter chronic microvascular ischemi c changes. No areas of brain edema or midline shift. The paranasal sinuses and mastoids are clear. The calvarium is intact. CT CERVICAL SPINE WITHOUT CONTRAST: No fracture or subluxation. Mild lower cervical spondylosis The prevertebral soft tissues are normal in thickness. CT CHEST, ABDOMEN, PELVIS WITHOUT CONTRAST: NOTE: Lack of contrast is a significant limitation in the assessment of trauma related findings. Spec ifically, solid organ, vascular and bowel evaluation is significantly limited. The lungs are clear.No pneumothorax or pericardial/pleural fluid. 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 No evidence of intra-abdominal visceral injury, free fluid or free air is seen within the above detai led limitations. Subcapital fracture of the proximal left femur with varus angulation. IMPRESSION: No subcapital fracture proximal left femur with varus angulation.
--- NOTE | 2024-01-19 21:09 | EDPHYS ---
Physician Documentation [facility] Name: Luara Meléndez Age: 83 yrs Sex: Female : 1940 Arrival Date: 01/19/2024 Time: 18:07 Bed 8 Private MD: ED Physician Mark Dior HPI: 01/18 18:25 This 83 yrs old Female presents to ER via EMS with complaints of Hip Pain. cp 18:25 Unable to obtain HPI due to baseline dementia. Patient is a 83-year-old female brought cp to the emergency department by EMS after reported fall 3 days ago. Patient is a long-term care resident of [facility] with a history of Alzheimer's and dementia. Patient does not express any complaints and is unable to give me any history. EMS reports patient had x-rays of her left hip that showed a fracture and so she was sent to the emergency room for evaluation. Historical: - Allergies: 18:14 No Known Allergies; kc6 - PMHx: 18:14 Anemia; Anxiety; Hypertensive disorder; Hypothyroidism; Schizophrenia; kc6 18:17 Alzheimer's disease; Dementia; kc6 - PSHx: 18:14 Unable to Obtain; kc6 - Immunization history:: Adult Immunizations unknown. - Infectious Disease History:: Denies. - Social history:: Smoking status: Patient denies any tobacco usage or history of. ROS: 18:30 Constitutional: Negative for fever, cp 18:30 Cardiovascular: Negative for chest pain, cp 18:30 Abdomen/GI: Negative for abdominal pain, 18:30 Neuro: Negative for altered mental status, 18:30 Unable to obtain ROS due to baseline dementia, Exam: 18:33 Constitutional: The patient appears in no acute distress, alert, awake, comfortable, cp non-diaphoretic, non-toxic, well developed, well nourished, 18:33 Head/Face: Normocephalic, atraumatic. cp 18:33 Eyes: Periorbital structures: appear normal, Pupils: equal, round, and reactive to light and accomodation, Conjunctiva: normal, no exudate, no injection, Sclera: no appreciated abnormality, Lids and lashes: appear normal, bilaterally, 18:33 ENT: External ear(s): are unremarkable, Nose: is normal, Mouth: Lips: moist, Oral mucosa: pink and intact, moist, Posterior pharynx: Airway: no evidence of obstruction, patent, 18:33 Neck: C-spine: vertebral tenderness, is not appreciated, crepitus, is not appreciated, ROM/movement: Meningeal signs: are not present, nuchal rigidity, is not appreciated, 18:33 Chest/axilla: Inspection: normal, Palpation: is normal, no crepitus, no tenderness, 18:33 Cardiovascular: Rate: normal, Rhythm: regular, Edema: is not appreciated, JVD: is not appreciated, 18:33 Respiratory: the patient does not display signs of respiratory distress, Respirations: normal, no use of accessory muscles, no retractions, labored breathing, is not present, Breath sounds: are clear throughout, no decreased breath sounds, no stridor, no wheezing, 18:33 Abdomen/GI: Inspection: abdomen appears normal, Palpation: abdomen is soft and non-tender, in all quadrants, 18:33 Musculoskeletal/extremity: Extremities: noted in the left hip: tenderness, ROM: limited passive range of motion due to pain, in the left hip, Pulses: noted to be 2+ in the left dorsalis pedis artery, 18:33 Neuro: Orientation: to person, Mentation: able to follow commands, Motor: no focal deficits, 20:23 ECG was reviewed by the Attending Physician. cp Vital Signs: 18:13 BP 93 / 53; Pulse 95; Resp 16 S; Temp 98.5(O); Pulse Ox 99% on R/A; Weight 68.04 kg; kc6 Height 5 ft. 5 in. ; 19:00 BP 144 / 80; Pulse 91; Resp 16 S; Pulse Ox 97% on R/A; as6 20:44 BP 126 / 61; Pulse 88; Resp 16 S; Pulse Ox 97% on R/A; as6 21:30 BP 121 / 60; Pulse 99; Resp 19; Pulse Ox 98% ; jj7 22:30 BP 135 / 58; Pulse 91; Resp 15; Pulse Ox 98% ; jj7 23:30 BP 113 / 61; Pulse 91; Resp 23; Pulse Ox 97% ; jj7 04/05 00:30 BP 123 / 64; Pulse 96; Resp 21; Pulse Ox 97% ; jj7 01:30 BP 120 / 69; Pulse 95; Resp 21; Pulse Ox 97% ; jj7 01/18 18:13 Body Mass Index 24.96 (68.04 kg, 165.1 cm) kc6 MDM: 01/18 18:14 Patient medically screened. cp 19:00 Differential diagnosis: intertrochanteric fracture, femoral neck fracture, femoral cp shaft fracture, multiple trauma. 21:10 Data reviewed: vital signs, nurses notes, lab test result(s), radiologic studies, CT cp scan, plain films, and as a result, I will admit patient. 21:10 Consideration of Admission/Observation Patient was admitted/placed on observation. cp Management of patient was discussed with the following: Chief Privacy Officer: DR Jackson will consul on patient and patient is to be admitted to DR Woods, hospitalist. I considered the following discharge prescriptions or medication management in the emergency department Medications were administered in the Emergency Department. See DEC. 01/18 18:20 Order name: Basic Metabolic Panel; Complete Time: 19:55 cp 01/18 20:51 Interpretation: Normal except: GLUC 162; BUN 24; CRE 1.22; GFR 44. cp 01/18 18:20 Order name: CBC with Diff; Complete Time: 19:55 cp 01/18 20:51 Interpretation: Normal except: RBC 3.37; HGB 10.7; HCT 31.8; LYM% 14.3. cp 01/18 18:20 Order name: LFT's; Complete Time: 19:55 cp 01/18 18:20 Order name: Magnesium; Complete Time: 19:55 cp 01/18 18:20 Order name: NT PRO-BNP; Complete Time: 19:55 cp 01/18 18:20 Order name: PT-INR; Complete Time: 19:55 cp 01/18 18:20 Order name: Troponin HS; Complete Time: 19:55 cp 01/18 20:47 Order name: Urinalysis W/Microscopic; Complete Time: 22:54 cp 01/18 22:54 Interpretation: Normal except: [facility] Turbid; UPROT TRACE; HYAL 5-10. cp 01/18 21:56 Order name: Urinalysis w/ reflexes EDMS 01/18 21:56 Order name: CBC with Automated Diff EDMS 01/18 21:56 Order name: CBC with Automated Diff EDMS 01/18 21:56 Order name: Comprehensive Metabolic Panel EDMS 01/18 21:56 Order name: Comprehensive Metabolic Panel EDMS 01/18 18:20 Order name: XRAY Chest (1 view); Complete Time: 19:55 cp 01/18 18:20 Order name: XRAY Femur LEFT; Complete Time: 19:55 cp 01/18 18:20 Order name: XRAY Pelvis; Complete Time: 19:55 cp 01/18 19:10 Order name: CT Traumagram (Head C Spine CAP wo con); Complete Time: 20:42 cp 01/18 18:20 Order name: Cardiac monitoring; Complete Time: 20:23 cp 01/18 18:20 Order name: EKG - Nurse/Tech; Complete Time: 20:23 cp 01/18 18:20 Order name: IV Saline Lock; Complete Time: 19:03 cp 01/18 18:20 Order name: Labs collected and sent; Complete Time: 19:03 cp 01/18 18:20 Order name: O2 Per Protocol; Complete Time: 20:23 cp 01/18 18:20 Order name: O2 Sat Monitoring; Complete Time: 20:23 cp 01/18 20:47 Order name: Nieves; Complete Time: 21:05 cp EC:23 Rate is 90 beats/min. Rhythm is regular. WI interval is normal. QRS interval is normal. cp Interpreted by me. Reviewed by me. Administered Medications: 19:03 Drug: NS 0.9% IV 500 ml IV at 500 ml/hr continuous Route: IV; Rate: 500 ml/hr; Site: as6 right antecubital; 20:08 Follow up: IV Status: Completed infusion jj7 23:01 Drug: morphine IVP or IV 4 mg IVP once over 4 mins Route: IVP; Infused Over: 4 mins; jj7 Site: right antecubital; 01/19 00:00 Follow up: Response: Marked relief of symptoms; Pain is decreased jj7 Disposition Summary: 01/19/24 21:09 Hospitalization Ordered Notes: Hospitalization Status: Inpatient Admission cp Provider: Ivan Woods cp Location: Telemetry/MedSurg (Inpatient) cp Condition: Stable cp Problem: new cp Symptoms: have improved cp Bed/Room Type: Standard cp Room Assignment: 411(01/20/24 01:04) cm10 Diagnosis - History of falling cp - Displaced fracture of base of neck of left femur, initial encounter for closed cp fracture Forms: - Medication Reconciliation Form cp - SBAR form cp - Leadership Thank You Letter cp Addendum: 01/24/2024 13:48 I was immediately available for consultation during this patient's visit. I did not e c2 personally see the patient or discuss the patient with the JULISSA. . Signatures: Dispatcher [employer] EDMS Andre gNuyễn PA PA cp Slawson, Ashby, RN RN as6 Katherine Oliveira RN RN kc6 Patricia Hussein RN RN jj7 Shy Kaminski RN RN cm10 Mark Dior MD MD ec2 Corrections: (The following items were deleted from the chart) 01/18 18:21 18:21 BASIC METABOLIC PANEL+C.LAB.BRZ ordered. EDMS EDMS 18:21 18:21 CBC+H.LAB.BRZ ordered. EDMS EDMS 18:21 18:21 HEPATIC FUNCTION+C.LAB.BRZ ordered. EDMS EDMS 18:21 18:21 MAGNESIUM+C.LAB.BRZ ordered. EDMS EDMS 18:21 18:21 PROBNP+C.LAB.BRZ ordered. EDMS EDMS 18:21 18:21 PROTIME (+INR)+COAG.LAB.BRZ ordered. EDMS EDMS 18:21 18:21 Troponin High Sensitivity+C.LAB.BRZ ordered. EDMS EDMS 18:21 18:21 Chest Single View+RAD.RAD.BRZ ordered. EDMS EDMS 18:21 18:21 Femur Left+RAD.RAD.BRZ ordered. EDMS EDMS 18:21 18:21 Pelvis+RAD.RAD.BRZ ordered. EDMS EDMS 20:47 20:47 Urinalysis W/Microscopic+U.LAB.BRZ ordered. EDMS EDMS 01/19 01:04 01/18 21:09 cp cm10
--- NOTE | 2024-01-19 21:09 | ER ---
Nurse's Notes [facility] Name: Saman Meléndez Age: 83 yrs Sex: Female : 1940 Arrival Date: 01/19/2024 Time: 18:07 Bed 8 Private MD: Diagnosis: History of falling;Displaced fracture of base of neck of left femur, initial encounter for closed fracture Presentation: 01/18 18:13 Chief complaint: EMS states: pt is from [place], had a fall 3 days ago. their xray kc6 showed a positive hip fracture today to the left side. Coronavirus screen: At this time, the client does not indicate any symptoms associated with coronavirus-19. Ebola Screen: No symptoms or risks identified at this time. Initial Sepsis Screen: Does the patient meet any 2 criteria? Altered Mental Status. Does the patient have a suspected source of infection? No. Patient's initial sepsis screen is negative. Risk Assessment: Do you want to hurt yourself or someone else? Patient reports no desire to harm self or others. Onset of symptoms was January 16, 2024. 18:13 Method Of Arrival: EMS: [facility] kc6 18:13 Acuity: PARKER 3 kc6 Triage Assessment: 18:14 General: Appears in no apparent distress. comfortable, unkempt, well developed, kc6 Behavior is calm, cooperative, appropriate for age. Pain: Complains of pain in left leg. EENT: No signs and/or symptoms were reported regarding the EENT system. Neuro: Level of Consciousness is awake, alert, obeys commands, Oriented to person, place, Appropriate for age. Cardiovascular: Capillary refill < 3 seconds. Respiratory: Airway is patent Trachea midline Respiratory effort is even, unlabored, Respiratory pattern is regular, symmetrical. GI: No signs and/or symptoms were reported involving the gastrointestinal system. : No signs and/or symptoms were reported regarding the genitourinary system. Derm: No signs and/or symptoms reported regarding the dermatologic system. Skin is intact, is healthy with good turgor, Skin is pink, warm \T\ dry. Musculoskeletal: No signs and/or symptoms reported regarding the musculoskeletal system. Circulation, motion, and sensation intact. Capillary refill < 3 seconds, Range of motion: intact in all extremities. Historical: - Allergies: 18:14 No Known Allergies; kc6 - PMHx: 18:14 Anemia; Anxiety; Hypertensive disorder; Hypothyroidism; Schizophrenia; kc6 18:17 Alzheimer's disease; Dementia; kc6 - PSHx: 18:14 Unable to Obtain; kc6 - Immunization history:: Adult Immunizations unknown. - Infectious Disease History:: Denies. - Social history:: Smoking status: Patient denies any tobacco usage or history of. Screenin:16 [facility] ED Fall Risk Assessment (Adult) History of falling in the last 3 months, kc6 including since admission Yes- single mechanical fall (1 pt) Confusion or Disorientation Yes (5 pts) Intoxicated or Sedated No (0 pts) Impaired Gait Yes (1 pt) Mobility Assist Device Used Yes (1 pt) Altered Elimination No (0 pt) Score/Fall Risk Level 3 or more points = High Risk. Abuse screen: Denies threats or abuse. Denies injuries from another. Nutritional screening: No deficits noted. Tuberculosis screening: No symptoms or risk factors identified. Assessment: 18:16 Reassessment: please see triage. kc6 20:44 Reassessment: Patient appears in no apparent distress at this time. Patient and/or as6 family updated on plan of care and expected duration. Pain level reassessed. Patient is alert, oriented x 3, equal unlabored respirations, skin warm/dry/pink. 01/19 00:09 Reassessment: PT WOULD LIKE TO BE CALLED SAMAN OR ED. jj7 Vital Signs: 01/18 18:13 BP 93 / 53; Pulse 95; Resp 16 S; Temp 98.5(O); Pulse Ox 99% on R/A; Weight 68.04 kg; kc6 Height 5 ft. 5 in. ; 19:00 BP 144 / 80; Pulse 91; Resp 16 S; Pulse Ox 97% on R/A; as6 20:44 BP 126 / 61; Pulse 88; Resp 16 S; Pulse Ox 97% on R/A; as6 21:30 BP 121 / 60; Pulse 99; Resp 19; Pulse Ox 98% ; jj7 22:30 BP 135 / 58; Pulse 91; Resp 15; Pulse Ox 98% ; jj7 23:30 BP 113 / 61; Pulse 91; Resp 23; Pulse Ox 97% ; jj7 01/19 00:30 BP 123 / 64; Pulse 96; Resp 21; Pulse Ox 97% ; jj7 01:30 BP 120 / 69; Pulse 95; Resp 21; Pulse Ox 97% ; jj7 01/18 18:13 Body Mass Index 24.96 (68.04 kg, 165.1 cm) [facility] ED Course: 01/18 18:12 Patient arrived in ED. 6 18:14 Andre Nguyễn PA is PHCP. cp 18:14 Mark Dior MD is Attending Physician. cp 18:14 Triage completed. kc6 18:14 Arm band placed on. kc6 18:17 Katherine Oliveira, RN is Primary Nurse. kc6 18:17 Patient has correct armband on for positive identification. Placed in gown. Bed in low kc6 position. Call light in reach. Side rails up X2. Client placed on continuous cardiac and pulse oximetry monitoring. NIBP monitoring applied. Warm blanket given. 18:45 XRAY Chest (1 view) In Process Unspecified. EDMS 18:45 XRAY Femur LEFT In Process Unspecified. EDMS 18:45 XRAY Pelvis In Process Unspecified. EDMS 18:50 Nieves cath inserted, using sterile technique, 16 Fr., by me, balloon inflated, to as6 gravity drainage, returned clear yellow urine. Patient tolerated well. 19:03 Initial lab(s) drawn, by me, sent to lab. Inserted saline lock: 20 gauge in right as6 antecubital area, using aseptic technique. Blood collected. 19:59 CT Traumagram (Head C Spine CAP wo con) In Process Unspecified. EDMS 21:04 Ivan Woods MD is Hospitalizing Provider. cp 21:05 Urinalysis W/Microscopic Sent. jj7 22:16 Primary Nurse role handed off by Katherine Oliveira, JD as6 01/19 01:22 No provider procedures requiring assistance completed. jj7 02:20 Patient admitted, IV remains in place. jj7 Administered Medications: 01/18 19:03 Drug: NS 0.9% IV 500 ml IV at 500 ml/hr continuous Route: IV; Rate: 500 ml/hr; Site: as6 right antecubital; 20:08 Follow up: IV Status: Completed infusion jj7 23:01 Drug: morphine IVP or IV 4 mg IVP once over 4 mins Route: IVP; Infused Over: 4 mins; jj7 Site: right antecubital; 01/19 00:00 Follow up: Response: Marked relief of symptoms; Pain is decreased jj7 Medication: 01/18 19:04 VIS not applicable for this client. as6 Outcome: 21:09 Decision to Hospitalize by Provider. joanne 01/19 02:20 Patient left the ED. [email or web address] 02:20 Admitted to Med/surg accompanied by nurse, via stretcher, room 411, Report called to [email or web address] REPORT SHEET FAXED TO 4TH FLOOR AND RECEIVED 02:20 Condition: improved Signatures: Dispatcher [employer] EDMS Andre Nguyễn PA PA cp Slawson, Ashby, RN RN as6 Katherine Oliveira RN RN [email or web address] Patricia Hussein RN RN jj7 Corrections: (The following items were deleted from the chart) 01/18 18:14 18:13 Chief complaint: EMS states: pt is from [place], had a fall 3 days ago. their kc6 xray showed a positive hip fracture today kc6 18:17 18:14 EENT: No signs and/or symptoms were reported regarding the EENT system. kc6 kc6 18:17 18:14 Neuro: Level of Consciousness is awake, alert, obeys commands, Oriented to kc6 person, place, time, situation, Appropriate for age kc6
--- NOTE | 2024-01-19 21:41 | P.HP ---
Certification for Inpatient Patient admitted to: Inpatient With expected LOS: >2 Midnights Practitioner: I am a practitioner with admitting privileges, knowledge of patient current condition, hospital course, and medical plan of care. Services: Services provided to patient in accordance with Admission requirements found in Title 42 Section 412.3 of the Code of Federal Regulations Patient History Date of Service: 01/19/24 Reason for admission: Pain / Fall History of Present Illness: 83 yo female with past medical history of dementia, hypertension, history of schizophrenia, who was brought to ER with pain in the left hip following fall. Patient is a poor historian hence most of the history is obtained from the chart review and after talking to the ER physician and family at the bedside. Denies any syncope or loss of consciousness. Started having pain in the left hip. Patient does not remember when it started. Apparently patient had recent fall. No fever or chills Denies any nausea vomiting or diarrhea. Patient was assessed in the ER and was found to have left hip fracture and was admitted for further management and orthopedic consultation . Allergies No Known Allergies Allergy (Unverified 12/14/23 15:35) Home medications list reviewed: Yes Home Medications: Buspirone HCl [Buspar] 10 mg PO TID 12/14/23 Docusate [Colace Cap*] 100 mg PO BID 12/14/23 Ferrous Sulfate [Ferrous Sulfate*] 325 mg PO DAILY 12/14/23 Fluoxetine HCl [Prozac*] 10 mg PO DAILY 12/14/23 Haloperidol Lac [Haldol*] 5 mg IM DAILYPRN PRN 12/14/23 Levothyroxine Sodium 25 mcg PO DAILY 12/14/23 Lisinopril [Zestril] 10 mg PO DAILY 12/14/23 Melatonin 6 mg PO BEDTIME 12/14/23 Mirtazapine [Remeron*] 15 mg PO BEDTIME 12/14/23 Risperidone [Risperdal] 1 mg PO BEDTIME 12/14/23 Amoxicillin/Potassium Clav [Augmentin Es-600 Suspension] 1 tsp PO BID #100 ml 12/15/23 Buspirone HCl [Buspar*] 10 mg PO TID tab 12/15/23 Docusate [Colace Cap*] 100 mg PO DAILY PRN cap 12/15/23 Ferrous Sulfate [Ferrous Sulfate*] 325 mg PO DAILY tab 12/15/23 Fluoxetine HCl [Prozac*] 10 mg PO DAILY cap 12/15/23 Haloperidol Lac [Haldol*] 5 mg IM DAILY PRN vial 12/15/23 Mirtazapine [Remeron*] 15 mg PO BEDTIME tab 12/15/23 lisinopriL [Prinivil*] 10 mg PO DAILY tab 12/15/23 risperiDONE [Risperdal 1 mg tab*] 1 mg PO BEDTIME tab 12/15/23 - Past Medical/Surgical History Past Medical History: Reviewed- Non-Contributory -: Schizophrenia -: HTN -: KALIN -: HLD Past Surgical History: Reviewed- Non-Contributory Psychosocial/ Personal History: lives in locked unit at [facility]. [facility] released from [facility], [facility] - Social History Smoking Status: Never smoker Alcohol use: No CD- Drugs: No Caffeine use: No Review of Systems is unable to be obtained Physical Examination - Vital Signs Temperature: 98.4 F Blood Pressure: 126/68 Pulse: 78 Respirations: 18 Pulse Ox (%): 98 - Physical Exam General: Alert, In no apparent distress, Oriented x2, Cooperative HEENT: Atraumatic, Normocephalic Neck: Supple, JVD not distended, No LAD Respiratory: Clear to auscultation bilaterally, Normal air movement Cardiovascular: Regular rate/rhythm, Normal S1 S2 Capillary refill: <2 Seconds Gastrointestinal: Soft and benign, W/out hepatosplenomegaly, No guarding Musculoskeletal: No clubbing, No swelling, Tenderness Integumentary: No rashes, No significant lesion Neurological: Normal strength at 5/5 x4 extr, Abnormal gait Lymphatics: No axilla or inguinal lymphadenopathy - Studies Laboratory Data (last 24 hrs) 01/19/24 01/19/24 01/19/24 19:02 19:02 19:02 WBC 7.80 Hgb 10.7 L Hct 31.8 L Plt Count 363 PT 11.3 INR 1.03 Sodium 138 Potassium 3.7 BUN 24 H Creatinine 1.22 H Glucose 162 H Magnesium 2.2 Total Bilirubin 0.3 AST 22 ALT 17 Alkaline Phosphatase 86 Assessment and Plan - Problems (Diagnosis) (1) Hip fracture Current Visit: Yes Status: Acute Plan: CT findings noted Left hip fracture Pain control Orthopedic surgery consulted Will keep n.p.o. for now IV hydration (2) Fall Current Visit: Yes Status: Acute Plan: Will monitor closely Pain controlled Will get PT OT evaluation (3) Dementia Current Visit: Yes Status: Chronic Plan: Dementia Continue home medications and titrate as needed Schizophrenia Continue home medications (4) Hypertension Current Visit: Yes Status: Chronic Plan: Continue home medications and titrate as needed Discharge Plan: Correction Plan to discharge in: Greater than 2 days - Advance Directives Does patient have a Living Will: No Does patient have a Durable POA for Healthcare: No - Code Status/Comfort Care Code Status: Full Code Time Spent Managing Pts Care (In Minutes): 58
[2024-01-19] MEDS ORDERED: ACETAMINOPHEN 500 MG TAB PO PRN (21:48)
[2024-01-19] MEDS ORDERED: ONDANSETRON 4 MG/2 ML VIAL IV PRN (21:48)
[2024-01-19 22:01] LABS: Specific Gravity 1.024 (1.005-1.030); Sqamous Epithelial <5 /HPF (None Seen); Urine Bacteria None Seen /HPF (<20); Urine Bilirubin NEGATIVE (Negative); Urine Blood Negative (Negative); Urine Clarity Turbid (Clear); Urine Color Yellow (Yellow); Urine Culture Reflex Order NOT NEEDED; Urine Glucose NEGATIVE (Negative); Urine Ketones NEGATIVE (Negative); Urine Micro Reflex YN NO BILL MICROSCOPIC; Urine Mucus 2+ /HPF (None Seen); Urine Nitrite NEGATIVE (Negative); Urine Protein TRACE (Negative); Urine RBC <5 /HPF (None Seen); Urine Urobilinogen Normal (Normal); Urine WBC <5 /HPF (<5)
[2024-01-19] MEDS ORDERED: MORPHINE 4 MG/ML SYR ONE (22:58)
[2024-01-20] MEDS: NA CHLORIDE 0.9% 1,000 ML IV SCH (03:16)
[2024-01-20] MEDS: CEFAZOLIN 1 GM in NA CHLORIDE 0.9% 50 ML IVPB SCH ×2 (03:17→17:36)
[2024-01-20 03:23] VITALS: BMI 22.8
[2024-01-20] MEDS: MORPHINE 2 MG/ML SYR IV PRN (05:08)
[2024-01-20 07:52] LABS: Albumin 2.5 g/dL (3.4-5.0); Albumin/Globulin Ratio 0.6 (1.1-1.8); Anion Gap 5.8 mEq/L (5.0-15.0); Bilirubin Total 0.3 mg/dL (0.2-1.0); Globulin 3.9 g/dL (2.3-3.5); Potassium 3.8 mEq/L (3.5-5.1); Protein, Total 6.4 g/dL (6.4-8.2)
[2024-01-20 07:54] LABS: Absolute Eosinophils 0.4 K/uL (0-0.5); Absolute Lymphocytes (CBC) 1.4 K/uL (0.7-4.9); Absolute Monocytes 0.7 K/uL (0.1-1.3); Absolute Neutrophil 3.8 K/uL (1.8-8.0); Basophils % 0.6 % (0-1.3); Eosinophils % 5.7 % (0-4.4); Hematocrit 42.1 % (36.0-45.0); Hemoglobin 13.6 g/dL (12.0-15.0); MCH 30.9 pg (27.0-35.0); MCHC 32.4 g/dL (32.0-36.0); MCV 95.6 fL (80-100); MPV 8.1 fL (7.6-11.3); Monocytes % 10.9 % (3.3-12.3); Neutrophils % 60.8 % (41.7-73.7); Nucleated Red Blood Cells % 0.1 % (0-0); Platelets 212 thou/uL (152-406); RBC Red Blood Cell Count 4.41 M/uL (3.86-4.86); Red Cell Distribution Width 14.5 % (12.1-15.2)
--- NOTE | 2024-01-20 08:38 | P.PN ---
Subjective Date of Service: 01/20/24 Chief Complaint: Pain / Fall History of dementia, schizophrenia, brought to the ER after a fall, admitted for left hip fracture, orthopedic to eval, n.p.o. after midnight Pain control with as needed analgesia - Physical Exam General: Alert, In no apparent distress, Oriented x2, Cooperative HEENT: Atraumatic, Normocephalic Neck: Supple, JVD not distended, No LAD Respiratory: Clear to auscultation bilaterally, Normal air movement Cardiovascular: Regular rate/rhythm, Normal S1 S2 Capillary refill: <2 Seconds Gastrointestinal: Soft and benign, W/out hepatosplenomegaly, No guarding Musculoskeletal: No clubbing, No swelling, left hip tenderness, pain with range of motion Integumentary: No rashes, No significant lesion Neurological: Normal strength at 5/5 x4 extr, Abnormal gait Lymphatics: No axilla or inguinal lymphadenopathy <Larissa Shin - Last Filed: 01/20/24 15:47> Date of Service: 01/20/24 <Brandon Coguhlin - Last Filed: 01/23/24 11:21> Review of Systems 10-point ROS is otherwise unremarkable <Larissa Shin - Last Filed: 01/20/24 15:47> Physical Examination - Vital Signs Temperature: 98.5 F Blood Pressure: 126/61 Pulse: 88 Respirations: 16 Pulse Ox (%): 96 - Studies Laboratory Data (last 24 hrs) 01/19/24 01/19/24 01/19/24 19:02 19:02 19:02 WBC 7.80 Hgb 10.7 L Hct 31.8 L Plt Count 363 PT 11.3 INR 1.03 Sodium 138 Potassium 3.7 BUN 24 H Creatinine 1.22 H Glucose 162 H Magnesium 2.2 Total Bilirubin 0.3 AST 22 ALT 17 Alkaline Phosphatase 86 <Larissa Shin - Last Filed: 01/20/24 15:47> Assessment And Plan - Plan Assessment plan Left hip fracture Orthopedic to eval, n.p.o. after midnight As needed analgesics, antispasmodic Fall precautions PT eval 4/5 postsurgical pelvis x-ray FINDINGS/IMPRESSION: Status post left total hip arthroplasty. No hardware complications. No dislocation. No acute fracture. Fall Fall precautions PT OT eval Hypertension History of dementia History of schizophrenia Resume home medications as appropriate DVT Full code Diet n.p.o. after midnight Disposition [facility] [place] Discharge Plan: Intermediate - Code Status/Comfort Care Code Status: Full Code Time Spent Managing PTS Care (In Minutes): 35 <Larissa Shin - Last Filed: 01/20/24 15:47> Date of Service: 01/20/24 Patient was seen and examined. Events of the last 24 hours have been noted. Spoke with with JULISSA regarding patient's clinical picture after evaluating and examining the patient independently. I performed a substantial part of the MDM during this patient's care today. I personally made or approved the documented management plan and acknowledge its risk of complications. I agree with the findings and documentation provided in the JULISSA's notes. <Brandon Coughlin - Last Filed: 01/23/24 11:21>
[2024-01-20] MEDS: ENOXAPARIN 40 MG/0.4 ML SQ SCH (08:41)
[2024-01-20] MEDS ORDERED: LIDOCAINE 1% MPF 5 ML VIAL ONE (11:24)
[2024-01-20] MEDS ORDERED: propofoL 200 MG/20 ML VIAL IV ONE ×4 (11:24→13:02)
[2024-01-20] MEDS ORDERED: FENTANYL CITR 100 MCG/2 ML ONE (11:24)
[2024-01-20] MEDS ORDERED: ONDANSETRON 4 MG/2 ML VIAL ONE (11:26)
--- NOTE | 2024-01-20 11:53 | EKG ---
Test Date: 2024-01-19 Test Time: 20:17:37 Valve Assembler: MEASUREMENT RESULTS: Intervals: Rate: 90 TN: 136 QRSD: 86 QT: 370 QTc: 452 [place]: P: 84 TN: 136 QRS: 55 T: 52 INTERPRETIVE STATEMENTS: Undetermined rhythm Cannot rule out Anterior infarct, age undetermined Abnormal ECG No previous ECG available for comparison Electronically Signed On 01-20-24 11:53:10 CDT by Chilo Kumar
[2024-01-20] MEDS: ROPIVACAINE HCL 20 ML ONE (12:06)
[2024-01-20] MEDS: CEFAZOLIN SODIUM 1 GM/VIAL ONE (12:13)
[2024-01-20] MEDS: TRANEXAMIC ACID 1,000 MG/10 ML VIAL IV ONE (12:41)
[2024-01-20] MEDS ORDERED: NS 0.9% VIAL 10 ML ONE (13:02)
[2024-01-20] MEDS ORDERED: dexAMETHasone 10 MG/ML VIAL ONE (13:09)
[2024-01-20] MEDS ORDERED: EPINEPHRINE 1 MG/ML VIAL ONE (13:09)
[2024-01-20] MEDS: NA CHLORIDE 0.9% 1,000 ML ONE (13:45)
[2024-01-20] MEDS ORDERED: ONDANSETRON 4 MG/2 ML VIAL IV PRN (14:07)
[2024-01-20] MEDS ORDERED: NACHLORIDE 0.45% 1,000 ML IV SCH (15:00)
--- NOTE | 2024-01-20 15:05 | RAD REPORT ---
EXAM DESCRIPTION: RAD - Pelvis - 01/20/2024 2:47 pm CLINICAL HISTORY: S/P L HIP ARTHROPLASTY COMPARISON: Pelvis dated 01/19/2024 FINDINGS/IMPRESSION: Status post left total hip arthroplasty. No hardware complications. No dislocat ion. No acute fracture.
--- NOTE | 2024-01-20 16:17 | OP ---
Surgeon: Jefry Jackson MD Return To Factory Clerk: None. Preoperative Diagnosis: Left hip femoral neck fracture. Preoperative Diagnosis: Left hip femoral neck fracture. Procedure Performed: Left hip hemiarthroplasty. Anesthesia: General. Estimated Blood Loss: 15 cc. Disposition: Recovery room, stable. Operative Report In Detail: The patient was taken to the operative suite, placed in supine position, induced with anesthesia. Posterior approach to the hip was utilized. Hemostasis was verified. Ten sor fascia geni was incised as blunt dissection of the entire gluteus melani was performed. The ext ernal rotators were detached, subperiosteally tagged for later reattachment. Fractured femoral neck delivered, osteotomized 1 fingerbreadth above the lesser trochanter. A 43 mm femoral head was delive red. Reaming broach technique for an 11 stem was appropriate. 0 offset 28 ball was appropriate. Pe rmanent implants were placed followed by application of a sterile dressing. A layered closure includ ing repair of external rotators through drill holes in bone. Sterile dressing was applied. The marlee ent is being reversed from anesthesia at the time of this dictation. Should be in the recovery room shortly. MIGUEL/JJ Voice ID: [id number] Report ID: [id number]
--- NOTE | 2024-01-20 17:47 | CON ---
Reason For Consultation: Ms. Meléndez is an 83-year-old woman, somewhat demented, sustained a fall and unable to ambulate since. Workup revealed a left femoral neck fracture. She has been medically opt imized and we have been asked to take care of this. We will definitively treat this with left hip he miarthroplasty. She will be taken to the OR suite where this will be performed. STEW Voice ID: [id number] Report ID: [id number]
[2024-01-20] MEDS: NACHLORIDE 0.45% 1,000 ML IV SCH (20:06)
[2024-01-20] MEDS ORDERED: MELATONIN 3 MG PO SCH (21:00)
[2024-01-20] MEDS: MELATONIN 3 MG TABLET PO SCH (21:00)
[2024-01-20] MEDS: MIRTAZAPINE 15 MG TAB PO SCH (21:00)
[2024-01-20] MEDS: RISPERIDONE 1 MG TABLET PO SCH (21:00)
[2024-01-20] MEDS: BUSPIRONE HCL 5 MG TABLET PO SCH (21:00)
[2024-01-20] MEDS: DOCUSATE NA 100 MG CAP PO SCH (21:00)
[2024-01-20] MEDS: ASPIRIN 325 MG TAB PO SCH (22:00)
[2024-01-21] MEDS: MORPHINE 2 MG/ML SYR IV PRN (00:40)
[2024-01-21] MEDS: LEVOTHYROXINE SOD 0.025 MG TAB PO SCH (06:18)
--- NOTE | 2024-01-21 07:22 | P.PN ---
Subjective Date of Service: 01/22/24 Chief Complaint: Pain / Fall History of dementia, schizophrenia, brought to the ER after a fall, admitted for left hip fracture, orthopedic to eval, n.p.o. after midnight Pain control with as needed analgesia Status post 4/ Procedure Performed: Left hip hemiarthroplasty., Family at bedside patient confused - Physical Exam General: Alert, In no apparent distress, Oriented x2, Cooperative HEENT: Atraumatic, Normocephalic Neck: Supple, JVD not distended, No LAD Respiratory: Clear to auscultation bilaterally, Normal air movement Cardiovascular: Regular rate/rhythm, Normal S1 S2 Capillary refill: <2 Seconds Gastrointestinal: Soft and benign, W/out hepatosplenomegaly, No guarding Musculoskeletal: No clubbing, No swelling, left hip tenderness, pain with range of motion Integumentary: No rashes, No significant lesion Neurological: Normal strength at 5/5 x4 extr, Abnormal gait Lymphatics: No axilla or inguinal lymphadenopathy <Larissa Shin - Last Filed: 01/22/24 07:03> Date of Service: 01/21/24 <Brandon Coughlin - Last Filed: 01/23/24 11:22> Review of Systems per HPI <Larissa Shin - Last Filed: 01/22/24 07:03> Physical Examination - Vital Signs Temperature: 98.8 F Blood Pressure: 119/55 Pulse: 76 Respirations: 16 Pulse Ox (%): 93 <Larissa Shin - Last Filed: 01/22/24 07:03> Assessment And Plan - Plan Assessment plan Left hip fracture Orthopedic to eval, n.p.o. after midnight As needed analgesics, antispasmodic Fall precautions PT eval / postsurgical pelvis x-ray FINDINGS/IMPRESSION: Status post left total hip arthroplasty. No hardware complications. No dislocation. No acute fracture. Jefry Jackson MD Plan Discharge to [facility] facility for rehab PT to eval and treat post op Eliquis 2.5 twice daily for 21 days postop Fall Fall precautions PT OT eval Hypertension History of dementia History of schizophrenia Resume home medications as appropriate Confused DVT Full code Diet cardiac after midnight Disposition long term facility [facility] Discharge Plan: Custodial - Code Status/Comfort Care Code Status: Full Code Critical Care: No Time Spent Managing PTS Care (In Minutes): 35 <Larissa Shin - Last Filed: 01/22/24 07:03> Date of Service: 01/21/24 Patient was seen and examined. Events of the last 24 hours have been noted. Patient doing well postoperatively. Starting to participate with physical therapy today. Patient stood out of bed today. Possible discharge to inpatient rehab versus long term facility. Spoke with JULISSA regarding patient's clinical picture after evaluating and examining the patient independently. I performed a substantial part of the MDM during this patient's care today. I personally made or approved the documented management plan and acknowledge its risk of complications. I agree with the findings and documentation provided in the JULISSA's notes. <Brandon Coughlin - Last Filed: 01/23/24 11:22>
[2024-01-21 07:33] LABS: Anion Gap 8.2 mEq/L (5.0-15.0); Potassium 4.2 mEq/L (3.5-5.1)
[2024-01-21] MEDS: FERROUS SULFATE 325 MG TAB PO SCH (07:59)
[2024-01-21] MEDS: FLUOXETINE 10 MG CAP PO SCH (07:59)
[2024-01-21] MEDS: APIXABAN 2.5 MG TABLET PO SCH (07:59)
[2024-01-21] MEDS: lisinopriL 10 MG TAB PO SCH (08:00)
[2024-01-21] MEDS: MORPHINE 4 MG/ML SYR IV PRN (11:55)
[2024-01-21] MEDS: HALOPERIDOL LACT 5 MG/ML INJ IV PRN (16:10)
[2024-01-22 06:42] LABS: Albumin 2.1 g/dL (3.4-5.0); Anion Gap 6.7 mEq/L (5.0-15.0); Magnesium 1.9 mg/dL (1.6-2.4); Phosphorus 2.1 mg/dL (2.5-4.9); Potassium 3.7 mEq/L (3.5-5.1)
[2024-01-22 06:46] LABS: Absolute Basophils 0.1 K/uL (0-0.5); Absolute Eosinophils 0.6 K/uL (0-0.5); Absolute Lymphocytes (CBC) 1.9 K/uL (0.7-4.9); Absolute Monocytes 0.7 K/uL (0.1-1.3); Absolute Neutrophil 4.5 K/uL (1.8-8.0); Eosinophils % 7.2 % (0-4.4); Hematocrit 27.2 % (36.0-45.0); Lymphocytes % 24.2 % (15.3-44.8); MCH 31.4 pg (27.0-35.0); MCHC 32.9 g/dL (32.0-36.0); MCV 95.4 fL (80-100); MPV 8.2 fL (7.6-11.3); Neutrophils % 58.6 % (41.7-73.7); Platelets 315 thou/uL (152-406); RBC Red Blood Cell Count 2.85 M/uL (3.86-4.86); Red Cell Distribution Width 13.9 % (12.1-15.2)
--- NOTE | 2024-01-22 07:06 | P.PN ---
Subjective Date of Service: 01/22/24 Chief Complaint: Pain / Fall History of dementia, schizophrenia, brought to the ER after a fall, Pain control with as needed analgesia, fleets ordered as 1 for constipation Status post 4/5 Procedure Performed: Left hip hemiarthroplasty., Family at bedside patient confused Plan [facility] - Physical Exam General: Alert, In no apparent distress, Oriented x2, Cooperative HEENT: Atraumatic, Normocephalic Neck: Supple, JVD not distended, No LAD Respiratory: Clear to auscultation bilaterally, Normal air movement Cardiovascular: Regular rate/rhythm, Normal S1 S2 Capillary refill: <2 Seconds Gastrointestinal: Soft and benign, W/out hepatosplenomegaly, No guarding Musculoskeletal: No clubbing, No swelling, left hip tenderness, pain with range of motion Integumentary: No rashes, No significant lesion Neurological: Normal strength at 5/5 x4 extr, Abnormal gait Lymphatics: No axilla or inguinal lymphadenopathy <Larissa Shin - Last Filed: 01/22/24 09:08> Date of Service: 01/22/24 <Brandon Coughlin - Last Filed: 01/23/24 11:24> Review of Systems per HPI <Larissa Shin - Last Filed: 01/22/24 09:08> Physical Examination - Vital Signs Temperature: 98.8 F Blood Pressure: 119/55 Pulse: 76 Respirations: 16 Pulse Ox (%): 93 <Larissa Shin - Last Filed: 01/22/24 09:08> Assessment And Plan - Plan Assessment plan Left hip fracture Orthopedic to eval, status post left hip hemiarthroplasty As needed analgesics, antispasmodic Fall precautions PT eval 4/5 postsurgical pelvis x-ray FINDINGS/IMPRESSION: Status post left total hip arthroplasty. No hardware complications. No dislocation. No acute fracture. Jefry Jackson MD Plan Discharge to [facility] facility for rehab PT to eval and treat post op Eliquis 2.5 twice daily for 21 days postop Fall Fall precautions PT OT eval Hypertension History of dementia History of schizophrenia Resume home medications as appropriate Confused DVT Eliquis Full code Diet cardiac Disposition [facility] [place] Discharge Plan: Group Home - Code Status/Comfort Care Code Status: Full Code Critical Care: No Time Spent Managing PTS Care (In Minutes): 35 <Larissa Shin - Last Filed: 01/22/24 09:08> Date of Service: 01/22/24 Patient was seen and examined. Events of the last 24 hours have been noted. Patient doing well postoperatively. Starting to participate with physical therapy today. Patient stood out of bed today. Possible discharge to inpatient rehab versus [facility]ent[facility] facility. Spoke with JULISSA regarding patient's clinical picture after evaluating and examining the patient independently. I performed a substantial part of the MDM during this patient's care today. I personally made or approved the documented management plan and acknowledge its risk of complications. I agree with the findings and documentation provided in the JULISSA's notes. Patient is clinically doing well. She is eating and not as agitated as she has been the last few nights. She worked with physical therapy. There is a possibility she could go to inpatient rehab if she does well with physical therapy. She also needs to be following commands. However, if she is having a hard time following commands because of her dementia and is bed she goes back to [facility] with physical therapy. She will need DVT prophylaxis as an outpatient. <Brandon Coughlin - Last Filed: 01/23/24 11:24>
[2024-01-22] MEDS: POTASSIUM PHOS IN 0.9 % NACL 15 MMOL/250 ML BAG IV ONE (08:58)
[2024-01-22] MEDS ORDERED: FLEET ENEMA ADULT PR PRN (09:07)
--- NOTE | 2024-01-22 09:13 | P.PN ---
Subjective Date of Service: 01/22/24 Chief Complaint: Pain / Fall Subjective: No new changes (stable for disposition from ortho standpoint) Physical Examination - Vital Signs Temperature: 98.8 F Blood Pressure: 119/55 Pulse: 76 Respirations: 16 Pulse Ox (%): 93
[2024-01-22] MEDS: FLEET ENEMA ADULT PR ONE (14:53)
[2024-01-23 07:00] LABS: Absolute Eosinophils 0.8 K/uL (0-0.5); Absolute Lymphocytes (CBC) 1.5 K/uL (0.7-4.9); Absolute Monocytes 0.5 K/uL (0.1-1.3); Absolute Neutrophil 3.7 K/uL (1.8-8.0); Basophils % 0.7 % (0-1.3); Eosinophils % 12.1 % (0-4.4); Hematocrit 28.1 % (36.0-45.0); MCH 30.4 pg (27.0-35.0); MCHC 32.2 g/dL (32.0-36.0); MCV 94.6 fL (80-100); MPV 7.9 fL (7.6-11.3); Monocytes % 8.3 % (3.3-12.3); Neutrophils % 55.9 % (41.7-73.7); Platelets 344 thou/uL (152-406); RBC Red Blood Cell Count 2.97 M/uL (3.86-4.86); Red Cell Distribution Width 13.6 % (12.1-15.2)
[2024-01-23 07:37] LABS: Albumin 1.9 g/dL (3.4-5.0); Anion Gap 9.4 mEq/L (5.0-15.0); Magnesium 2.2 mg/dL (1.6-2.4); Phosphorus 2.8 mg/dL (2.5-4.9); Potassium 4.4 mEq/L (3.5-5.1)
--- NOTE | 2024-01-23 08:37 | P.DS ---
Admission Date: 01/19/24 Discharge Date: 01/23/24 Reason for Admission: Pain / Fall Consultations: Dr. Jackson Procedures: Left Hip arthroplasty Brief History of Present Illness: 83 yo female with past medical history of dementia, hypertension, history of schizophrenia, who was brought to ER with pain in the left hip following fall. Patient is a poor historian hence most of the history is obtained from the chart review and after talking to the ER physician and family at the bedside. Denies any syncope or loss of consciousness. Started having pain in the left hip. Patient does not remember when it started. Apparently patient had recent fall. No fever or chills, denies any nausea vomiting or diarrhea. Patient was assessed in the ER and was found to have left hip fracture and was admitted for further management and orthopedic consultation. Hospital Course: Ms. Meléndez comes from [facility] s/p fall and fracture of left hip. Dr. Jackson took her to the OR for repair 01/20/24. Pt did well and there have been no complications. Hemoglobin stable postoperatively. She was instructed to take Eliquis 2.5mg po BID for 21 days postoperatively (02/11/24 will be end date -> 36tabs). She is to be discharged back to [facility] with Physical therapy. <Crystal Cason - Last Filed: 01/23/24 14:34> Admission Date: 01/19/24 Discharge Date: 01/23/24 Hospital Course: Pt seen and examined. I agree with the note by the MANUFACTURING MANAGEMENT ASSOCIATE. Ok to discharge pt with eliquis 2.5mg po BID. Continue PT. and prn pain meds. <Fransico Gaona - Last Filed: 01/23/24 21:14> Disposition: TRANSFER TO SNF - REHAB Discharge Condition: GOOD Vital Signs/Physical Exam: Temp Pulse Resp BP Pulse Ox 97.2 F 78 18 143/68 H 96 01/23/24 04:00 01/23/24 04:00 01/23/24 04:00 01/23/24 04:00 01/23/24 04:00 Laboratory Data at Discharge: WBC 6.50 thou/uL (4.3-10.9) 01/23/24 06:36 Hgb 9.0 g/dL (12.0-15.0) L 01/23/24 06:36 Hct 28.1 % (36.0-45.0) L 01/23/24 06:36 Plt Count 344 thou/uL (152-406) 01/23/24 06:36 PT 11.3 SECONDS (9.5-12.5) 01/19/24 19:02 INR 1.03 01/19/24 19:02 Sodium 139 mEq/L (136-145) 01/23/24 06:36 Potassium 4.4 mEq/L (3.5-5.1) D 01/23/24 06:36 BUN 17 mg/dL (7-18) 01/23/24 06:36 Creatinine 0.63 mg/dL (0.55-1.02) 01/23/24 06:36 Glucose 97 mg/dL (74-106) 01/23/24 06:36 Phosphorus 2.8 mg/dL (2.5-4.9) 01/23/24 06:36 Magnesium 2.2 mg/dL (1.6-2.4) 01/23/24 06:36 Total Bilirubin 0.3 mg/dL (0.2-1.0) 01/20/24 07:20 AST 16 U/L (15-37) 01/20/24 07:20 ALT 15 U/L (13-56) 01/20/24 07:20 Alkaline Phosphatase 72 U/L (45-117) 01/20/24 07:20 <Cason,Crystal Gregory - Last Filed: 01/23/24 14:34> Vital Signs/Physical Exam: Temp Pulse Resp BP Pulse Ox 99.0 F 72 16 132/61 94 01/23/24 12:00 01/23/24 12:00 01/23/24 12:00 01/23/24 12:00 01/23/24 12:00 Laboratory Data at Discharge: WBC 6.50 thou/uL (4.3-10.9) 01/23/24 06:36 Hgb 9.0 g/dL (12.0-15.0) L 01/23/24 06:36 Hct 28.1 % (36.0-45.0) L 01/23/24 06:36 Plt Count 344 thou/uL (152-406) 01/23/24 06:36 PT 11.3 SECONDS (9.5-12.5) 01/19/24 19:02 INR 1.03 01/19/24 19:02 Sodium 139 mEq/L (136-145) 01/23/24 06:36 Potassium 4.4 mEq/L (3.5-5.1) D 01/23/24 06:36 BUN 17 mg/dL (7-18) 01/23/24 06:36 Creatinine 0.63 mg/dL (0.55-1.02) 01/23/24 06:36 Glucose 97 mg/dL (74-106) 01/23/24 06:36 Phosphorus 2.8 mg/dL (2.5-4.9) 01/23/24 06:36 Magnesium 2.2 mg/dL (1.6-2.4) 01/23/24 06:36 Total Bilirubin 0.3 mg/dL (0.2-1.0) 01/20/24 07:20 AST 16 U/L (15-37) 01/20/24 07:20 ALT 15 U/L (13-56) 01/20/24 07:20 Alkaline Phosphatase 72 U/L (45-117) 01/20/24 07:20 <Fransico Gaona - Last Filed: 01/23/24 21:14> Diet: AHA Activity: per PT <Crystal Cason - Last Filed: 01/23/24 14:34> <Fransico Gaona - Last Filed: 01/23/24 21:14> Home Medications: Docusate [Colace Cap*] 100 mg PO BID 12/14/23 Levothyroxine Sodium 25 mcg PO [id number] 12/14/23 Melatonin 6 mg PO BEDTIME 12/14/23 Buspirone HCl [Buspar*] 10 mg PO TID tab 12/15/23 Ferrous Sulfate [Ferrous Sulfate*] 325 mg PO DAILY tab 12/15/23 Fluoxetine HCl [Prozac*] 10 mg PO DAILY cap 12/15/23 Mirtazapine [Remeron*] 15 mg PO BEDTIME tab 12/15/23 lisinopriL [Prinivil*] 10 mg PO DAILY tab 12/15/23 risperiDONE [Risperdal 1 mg tab*] 1 mg PO BEDTIME tab 12/15/23 Apixaban [Eliquis *] 2.5 mg PO BID #36 tab 01/23/24 New Medications: Apixaban [Eliquis *] 2.5 mg PO BID #36 tab Physician Discharge Instructions: Patient is a detention resident: [place] [address] [place] [address] P:[phone]/ F:[phone] Will continue regular medications with an addition of Eliquis 2.5mg po BID x 36 tabs postoperatively. Will need to work with PT s/p left hip surgery F/u with Dr. Jackson in 2 weeks Followup: Jefry Jackson MD [ACTIVE - CAN ADMIT] - 1-2 Weeks NONE,NONE [Primary Care Provider] -
[2024-01-23 13:42] VITALS: O2SAT 100
[2024-01-23 13:43] VITALS: BP 132/61; TEMP 99
[2024-01-23] MEDS: ENSURE SURGERY 237 ML CAN PO SCH (15:00)
== END 2024-01-23 16:16 | DRG 522 ==
LOC: ER 18:07 → ERHOLD 21:48 → 4TH 01-20 01:51
PROVIDERS: ADMIT Family Medicine; ATTEND Hospitalist
PROC: 0SRS0JZ Replacement of Left Hip Joint, Femoral Surface with Synthetic Substitute, Open Approach (ICD-10-PCS; principal; 2024-01-20 11:30)
DX: S72.042A Displaced fracture of base of neck of left femur, initial encounter for closed fracture (principal); I10 Essential (primary) hypertension; E03.9 Hypothyroidism, unspecified; E78.5 Hyperlipidemia, unspecified; F20.9 Schizophrenia, unspecified; K59.00 Constipation, unspecified; G30.9 Alzheimer's disease, unspecified; F02.80 Dementia in other diseases classified elsewhere, unspecified severity, without behavioral disturbance, psychotic disturbance, mood disturbance, and anxiety; Z79.890 Hormone replacement therapy; Z79.899 Other long term (current) drug therapy
CPT/HCPCS: 36415; 51702; 70450; 71045; 71250; 72125; 72170; 80048; 80053; 80069; 80076; 81001; 83735; 83880; 84484; 85025; 85610; 88305; 88311; 93005; 94760; 96361; 96374; 97110; 97116; 97163; 97530; 97542; 99285; A4216; J0171; J0690; J1100; J1630; J1650; J2001; J2270; J2405; J2704; J3010; J7030; J7040

== ENCOUNTER 2024-03-21 09:35 | Emergency (ER) | payer OTHER ==
--- OUTSIDE RECORDS SUMMARY | 2024-03-21 09:39 | XMS REPORT | Continuity of Care Document ---
Author Name Unknown Address [address] [facility] [address] [place] [address] [facility] Address [address] [facility] [address] [place] [address] Care Team Providers Care Net Wpf Developer Name Role Phone BHARATHI BOJORQUEZ Primary Care Physician MALCOLM Mack Attending Clinician MALCOLM Storey Attending Clinician Malcolm Storey MD Attending Clinician [phone] Theodore Woods MD Attending Clinician [phone] DR ARTIE ALVAREZ Attending Clinician DR ARTIE Modi Attending Clinician Diego child GC_SEFP_Rivera_A Attending Clinician Unavailable Madelyn Gonsalez MD Attending Clinician [phone] MADELYN GONSALEZ Attending Clinician Can iltheo 2, [facility] Attending Clinician Unavailable Doctor Unassigned, [place] Attending Clinician U DR ARTIE Gary Admitting Clinician ARIK Diaz Admitting Clinician Unavailable GC_SEFP_Rivera_A Admitting Clinician Unavailable Payers Payer Name Policy Type Policy Number Effective Date Expirati on Date Source [id number] 2023 00:00:00 [employer] (MEDICARE REPLACEMENT/ADVAN TAGE - PPO) [id number] Problems Condition Name Condition Details Condition Category Status Onset Date Resolution Date Last Treatment Date Treating Clinician Comments Source Hyperlipid emia Hyperlipid emia Disease Active 10-29 00:00: 00 [facility] Allergic conjunctiv itis, bilateral Allergic conjunctiv itis, bilateral Disease Recurre nce 10-29 00:00: 00 [facility] Other seasonal allergic rhinitis Other seasonal allergic rhinitis Disease Active 10-29 00:00: 00 [facility] Essential hypertensi on Essential hypertensi on Disease Active 10-29 00:00: 00 [facility] Iron deficiency anemia due to chronic blood loss Iron deficiency anemia due to chronic blood loss Disease Active 10-29 00:00: 00 [facility] 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 - 50 beats per minute 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 - 50 beats per minute Disease Active 10-29 00:00: 00 [facility] Fatigue Fatigue Disease Active 10-29 00:00: 00 [facility] Allergies, Adverse Reactions, Alerts Allergy Name Allergy Type Status Severity Reaction(s) Onset Date Inactive Date Treating Clinician Comments Source NO KNOWN ALLERGIE S Drug Class Active [facility] No Known Allergie s DA Active [facility] Social History Social Habit Start Date Stop Date Quantity Comments Source [facility] Exposure to SARS-CoV-2 (event) [facility] Alcohol intake 2024-02-16 00:00:00 2024-02-16 00:00:00 Ex-drinker (finding) [facility] Tobacco use and exposure 2020-09-22 00:00:00 2020-09-22 00:00:00 Smokeless tobacco non-user [facility] Cigarettes smoked current (pack per day) - Reported 2020-09-22 00:00:00 2020-09-22 00:00:00 [facility] Cigarette pack-years 2020-09-22 00:00:00 2020-09-22 00:00:00 [facility] History of Social function 2020-09-22 00:00:00 2020-09-22 00:00:00 [facility] Alcoholic beverage intake 2020-09-22 00:00:00 2020-09-22 00:00:00 Ex-drinker (finding) [facility] Tobacco Comment 2020-02-12 00:00:00 2020-02-12 00:00:00 social smoker [facility] History of tobacco use 1957-10-17 00:00:00 2015-02-11 00:00:00 Cigarette Smoker [facility] Sex assigned at 1940 00:00:00 1940 00:00:00 [facility] Smoking Status Start Date Stop Date Source Ex-smoker 2020-09-22 00:00:00 [facility] Medications Ordered Medication Name Filled Medication Name Start Date Stop Date Current Medication? Ordering Clinician Indication Dosage Frequency Signature (SIG) Comments Components Source levothyroxi ne 50 mcg tablet 03-04 00:00: 00 Yes [id number] TAKE 1 TABLET BY MOUTH EVERY MORNING. Keep on file. [facility] Cholecalcif mook, Vitamin D3, (VITAMIN D3) 2,000 unit tablet 2019-10 23:55: 44 Yes 2{tbl} Take 2 tablets by mouth daily. [facility] Cholecalcif mook, Vitamin D3, (VITAMIN D3) 2,000 unit tablet 2019-10 17:55: 44 Yes 2{tbl} Take 2 tablets by mouth daily. [facility] losartan 50 mg tablet 2019-10 00:00: 00 Yes [id number] 50mg Take 1 tablet by mouth every morning. [facility] amLODIPine 10 mg tablet 2019-10 00:00: 00 Yes [id number] TAKE 1 TABLET BY MOUTH EVERY NIGHT AT BEDTIME [facility] Cholecalcif mook, Vitamin D3, (VITAMIN D3) 2,000 unit tablet 02-11 18:57: 37 Yes 2{tbl} Take 2 tablets by mouth daily. [facility] levothyroxi ne 50 mcg tablet 02-11 00:00: 00 03-04 00:00 :00 No [id number] TAKE 1 TABLET BY MOUTH EVERY MORNING. Keep on file. [facility] losartan 50 mg tablet 2018-10 00:00: 00 Yes [id number] 50mg Take 1 tablet by mouth every morning. [facility] amLODIPine 10 mg tablet 2018-10 00:00: 00 Yes [id number] TAKE 1 TABLET BY MOUTH EVERY NIGHT AT BEDTIME [facility] amLODIPine 10 mg tablet 07-06 00:00: 00 Yes [id number] TAKE 1 TABLET BY MOUTH EVERY NIGHT AT BEDTIME [facility] losartan 50 mg tablet 07-06 00:00: 00 Yes [id number] 50mg Take 1 tablet by mouth every morning. [facility] LOSARTAN 50 mg tablet 07-03 00:00: 00 07-06 00:00 :00 No 50mg TAKE 1 TABLET BY MOUTH EVERY MORNING [facility] amLODIPine 10 mg tablet 07-03 00:00: 00 07-06 00:00 :00 No [id number] TAKE 1 TABLET BY MOUTH EVERY NIGHT AT BEDTIME [facility] LOSARTAN 50 mg tablet 06-28 00:00: 00 Yes [id number] 50mg TAKE 1 TABLET BY MOUTH EVERY MORNING [facility] AMLODIPINE 10 mg tablet 06-28 00:00: 00 07-02 00:00 :00 No [id number] TAKE 1 TABLET BY MOUTH EVERY NIGHT AT BEDTIME [facility] levothyroxi ne 50 mcg tablet 06-20 00:00: 00 02-11 00:00 :00 No [id number] TAKE 1 TABLET BY MOUTH EVERY MORNING [facility] levothyroxi ne 50 mcg tablet 05-11 00:00: 00 06-20 17:33 :41 No [id number] TAKE 1 TABLET BY MOUTH EVERY MORNING [facility] amLODIPine 10 mg tablet 05-11 00:00: 00 06-20 00:00 :00 No [id number] TAKE 1 TABLET BY MOUTH EVERY NIGHT AT BEDTIME [facility] losartan 50 mg tablet 05-11 00:00: 00 06-20 00:00 :00 No 50mg Take 1 tablet by mouth every morning. [facility] Immunizations Ordered Immunization Name Filled Immunization Name Date Status Comments Source Influenza High Dose Quad 2020-07-11 00:00:00 Completed [facility] Zoster Vaccine Recombinant 2020-07-11 00:00:00 Completed [facility] Influenza High Dose Quad 2020-07-11 00:00:00 Completed [facility] Zoster Vaccine Recombinant 2020-07-11 00:00:00 Completed [facility] Influenza High Dose Quad 2020-07-11 00:00:00 Completed [facility] Zoster Vaccine Recombinant 2020-07-11 00:00:00 Completed [facility] Influenza Virus Vaccine 2019-07-28 00:00:00 Completed [facility] Influenza Virus Vaccine 2019-07-28 00:00:00 Completed [facility] Influenza Virus Vaccine 2019-07-28 00:00:00 Completed [facility] Influenza Virus Vaccine 2019-07-28 00:00:00 Completed [facility] Influenza Virus Vaccine 2019-07-28 00:00:00 Completed [facility] Influenza Virus Vaccine 2019-07-28 00:00:00 Completed [facility] Influenza High Dose 2018-09-05 00:00:00 Completed [facility] Influenza High Dose 2018-09-05 00:00:00 Completed [facility] Influenza High Dose 2018-09-05 00:00:00 Completed [facility] Influenza High Dose 2018-09-05 00:00:00 Completed [facility] Influenza High Dose 2018-09-05 00:00:00 Completed [facility] Influenza High Dose 2018-09-05 00:00:00 Completed [facility] Influenza High Dose 2018-09-05 00:00:00 Completed [facility] Influenza High Dose 2018-09-05 00:00:00 Completed [facility] Influenza High Dose 2018-09-05 00:00:00 Completed [facility] Influenza High Dose 2018-09-05 00:00:00 Completed [facility] Influenza High Dose 2018-09-05 00:00:00 Completed [facility] Influenza High Dose 2018-09-05 00:00:00 Completed [facility] Pneumococcal 13 Conjugate, PCV13 (Prevnar 13) 2018-05-11 00:00:00 Completed [facility] Pneumococcal 13 Conjugate, PCV13 (Prevnar 13) 2018-05-11 00:00:00 Completed [facility] Pneumococcal 13 Conjugate, PCV13 (Prevnar 13) 2018-05-11 00:00:00 Completed [facility] Pneumococcal 13 Conjugate, PCV13 (Prevnar 13) 2018-05-11 00:00:00 Completed [facility] Pneumococcal 13 Conjugate, PCV13 (Prevnar 13) 2018-05-11 00:00:00 Completed [facility] Pneumococcal 13 Conjugate, PCV13 (Prevnar 13) 2018-05-11 00:00:00 Completed [facility] Pneumococcal 13 Conjugate, PCV13 (Prevnar 13) 2018-05-11 00:00:00 Completed [facility] Pneumococcal 13 Conjugate, PCV13 (Prevnar 13) 2018-05-11 00:00:00 Completed [facility] Pneumococcal 13 Conjugate, PCV13 (Prevnar 13) 2018-05-11 00:00:00 Completed [facility] Pneumococcal 13 Conjugate, PCV13 (Prevnar 13) 2018-05-11 00:00:00 Completed [facility] Pneumococcal 13 Conjugate, PCV13 (Prevnar 13) 2018-05-11 00:00:00 Completed [facility] Pneumococcal 13 Conjugate, PCV13 (Prevnar 13) 2018-05-11 00:00:00 Completed [facility] Influenza Virus Vaccine 2017-10-05 00:00:00 Completed [facility] Influenza Virus Vaccine 2017-10-05 00:00:00 Completed [facility] Influenza Virus Vaccine 2017-10-05 00:00:00 Completed [facility] Influenza Virus Vaccine 2017-10-05 00:00:00 Completed [facility] Influenza Virus Vaccine 2017-10-05 00:00:00 Completed [facility] Influenza Virus Vaccine 2017-10-05 00:00:00 Completed [facility] Influenza Virus Vaccine 2017-10-05 00:00:00 Completed [facility] Influenza Virus Vaccine 2017-10-05 00:00:00 Completed [facility] Influenza Virus Vaccine 2017-10-05 00:00:00 Completed [facility] Influenza Virus Vaccine 2017-10-05 00:00:00 Completed [facility] Influenza Virus Vaccine 2017-10-05 00:00:00 Completed [facility] Influenza Virus Vaccine 2017-10-05 00:00:00 Completed [facility] Pneumococcal Polysaccharide, PPSV23 (PNEUMOVAX) 2011-05-11 00:00:00 Completed [facility] Pneumococcal Polysaccharide, PPSV23 (PNEUMOVAX) 2011-05-11 00:00:00 Completed [facility] Pneumococcal Polysaccharide, PPSV23 (PNEUMOVAX) 2011-05-11 00:00:00 Completed [facility] Pneumococcal Polysaccharide, PPSV23 (PNEUMOVAX) 2011-05-11 00:00:00 Completed [facility] Pneumococcal Polysaccharide, PPSV23 (PNEUMOVAX) 2011-05-11 00:00:00 Completed [facility] Pneumococcal Polysaccharide, PPSV23 (PNEUMOVAX) 2011-05-11 00:00:00 Completed [facility] Pneumococcal Polysaccharide, PPSV23 (PNEUMOVAX) 2011-05-11 00:00:00 Completed [facility] Pneumococcal Polysaccharide, PPSV23 (PNEUMOVAX) 2011-05-11 00:00:00 Completed [facility] Pneumococcal Polysaccharide, PPSV23 (PNEUMOVAX) 2011-05-11 00:00:00 Completed [facility] Pneumococcal Polysaccharide, PPSV23 (PNEUMOVAX) 2011-05-11 00:00:00 Completed [facility] Pneumococcal Polysaccharide, PPSV23 (PNEUMOVAX) 2011-05-11 00:00:00 Completed [facility] Pneumococcal Polysaccharide, PPSV23 (PNEUMOVAX) 2011-05-11 00:00:00 Completed [facility] Influenza Virus Vaccine Unknown Completed [facility] Pneumococcal 13 Conjugate, PCV13 (Prevnar 13) Unknown Completed [facility] Pneumococcal Polysaccharide, PPSV23 (PNEUMOVAX) Unknown Completed [facility] Influenza High Dose Unknown Completed [facility] Influenza Virus Vaccine Unknown Completed [facility] Influenza High Dose Quad Unknown Completed [facility] Zoster Vaccine Recombinant Unknown Completed [facility] Influenza Virus Vaccine Unknown Completed [facility] Pneumococcal 13 Conjugate, PCV13 (Prevnar 13) Unknown Completed [facility] Pneumococcal Polysaccharide, PPSV23 (PNEUMOVAX) Unknown Completed [facility] Influenza High Dose Unknown Completed [facility] Influenza Virus Vaccine Unknown Completed [facility] Influenza High Dose Quad Unknown Completed [facility] Zoster Vaccine Recombinant Unknown Completed [facility] Influenza Virus Vaccine Unknown Completed [facility] Pneumococcal 13 Conjugate, PCV13 (Prevnar 13) Unknown Completed [facility] Pneumococcal Polysaccharide, PPSV23 (PNEUMOVAX) Unknown Completed [facility] Influenza High Dose Unknown Completed [facility] Influenza Virus Vaccine Unknown Completed [facility] Influenza High Dose Quad Unknown Completed [facility] Zoster Vaccine Recombinant Unknown Completed [facility] Influenza Virus Vaccine Unknown Completed [facility] Pneumococcal 13 Conjugate, PCV13 (Prevnar 13) Unknown Completed [facility] Pneumococcal Polysaccharide, PPSV23 (PNEUMOVAX) Unknown Completed [facility] Influenza High Dose Unknown Completed [facility] Influenza Virus Vaccine Unknown Completed [facility] Influenza High Dose Quad Unknown Completed [facility] Zoster Vaccine Recombinant Unknown Completed [facility] Influenza Virus Vaccine Unknown Completed [facility] Pneumococcal 13 Conjugate, PCV13 (Prevnar 13) Unknown Completed [facility] Pneumococcal Polysaccharide, PPSV23 (PNEUMOVAX) Unknown Completed [facility] Influenza High Dose Unknown Completed [facility] Influenza Virus Vaccine Unknown Completed [facility] Influenza High Dose Quad Unknown Completed [facility] Zoster Vaccine Recombinant Unknown Completed [facility] Influenza Virus Vaccine Unknown Completed [facility] Pneumococcal 13 Conjugate, PCV13 (Prevnar 13) Unknown Completed [facility] Pneumococcal Polysaccharide, PPSV23 (PNEUMOVAX) Unknown Completed [facility] Influenza High Dose Unknown Completed [facility] Influenza Virus Vaccine Unknown Completed [facility] Influenza High Dose Quad Unknown Completed [facility] Zoster Vaccine Recombinant Unknown Completed [facility] Vital Signs Vital Name Observation Time Observation Value Comments S ource Body height 2024-02-16 18:05:00 160 cm [facility] Body weight 2024-02-16 18:05:00 58.968 kg [facility] BMI 2024-02-16 18:05:00 23.03 kg/m2 [facility] Height 2023-12-05 14:57:00 162.56 CM Weight 2023-12-05 14:57:00 70 KG Height 2023-12-05 14:57:00 162.56 CM Weight 2023-12-05 14:57:00 70 KG Procedures Procedure Date / Time Performed Performing Clinician Source FREE T4 2019-06-28 16:19:00 Damari Gonsalez [facility] THYROID STIMULATING HORMONE 2019-06-28 16:19:00 Madelyn Gonsalez [facility] COMP. METABOLIC PANEL (94827) 2019-06-28 16:19:00 Madelyn Gonsalez [facility] CBC WITH DIFFERENTIAL 2019-06-28 16:19:00 Madelyn Kent [facility] AGREEMENTS AUTHORIZATIONS AND IRREVOCABLE ASSIGNMENTS (FORM 2001) 2019-06-28 05:01:00 Doctor Unassigned, [place] [facility] Encounters Start Date/Time End Date/Time Encounter Type Admission Type Attending Clinicians Care Facility Care Department Encounter ID Source 2024-02-16 13:09:14 2024-02-16 23:59:00 Hospital Encounter Malcolm Echeverria [facility] [id number] 350.1.13.10 4.2.7.2.686 [id number] [facility] 2024-02-16 13:00:00 2024-02-16 13:22:26 Outpatient R MALCOLM ECHEVERRIA CRAIG [facility] [id number] [facility] 2024-02-16 13:00:00 2024-02-16 13:22:26 Office Visit Echeverria, Malcolm Chicas [facility] 1.2.840.114 350.1.13.10 4.2.7.2.686 [id number] [facility] 2024-01-24 00:00:00 2024-01-24 00:00:00 Telephone Malcolm Echeverria [facility] [id number] 350.1.13.10 4.2.7.2.686 [id number] [facility] 2024-01-20 13:58:00 2024-01-20 23:59:00 Hospital Encounter [place], [facility] 1.840.114 350.1.13.10 4.2.7.2.686 [id number] [facility] 2024-01-20 00:00:00 2024-01-20 23:59:00 [facility] [id number] 2024-01-19 09:26:00 2024-01-19 23:59:00 Hospital Encounter Chuck [facility] 1.840.114 350.1.13.10 4.2.7.2.686 [id number] [facility] 2024-01-19 00:00:00 2024-01-19 23:59:00 [facility] [id number] [facility] 2023-12-05 14:37:00 2023-12-05 18:45:00 Emergency E ARTIE ALVAREZ [facility] [id number] [facility] 2023-12-05 14:37:00 2023-12-05 14:37:00 Emergency E [facility] [id number] [facility] 2023-11-30 00:00:00 2023-11-30 00:00:00 Outpatient GC_SEFP_Riv era_A PRIV PRIV [id number] [facility] 2023-11-08 00:00:00 2023-11-08 00:00:00 Outpatient GC_SEFP_Riv era_A PRIV PRIV [id number] [facility] 2021-08-27 00:00:00 2021-08-27 00:00:00 Madelyn Ortiz [facility] 1..840.114 350.1.13.10 4.2.7.2.686 [id number] [facility] 2021-03-03 00:00:00 2021-03-03 00:00:00 Refill Madelyn Gonsalez [facility] 1.2.840.114 350.1.13.10 4.2.7.2.686 [id number] [facility] 2020-09-22 08:57:07 2020-09-23 08:49:12 Telemedici ne Visit Madelyn Gonsalez [facility] 1.2.840.114 350.1.13.10 4.2.7.2.686 [id number] [facility] 2020-09-22 15:40:00 2020-09-22 15:40:00 Outpatient R MADELYN GONSALEZ [facility] [id number] [facility] 2020-09-15 00:00:00 2020-09-15 00:00:00 Refill Madelyn Gonsalez [facility] 1..840.114 350.1.13.10 4.2.7.2.686 [id number] [facility] 2020-08-26 15:20:00 2020-08-26 15:20:00 Outpatient R MADELYN GONSALEZ [facility] [id number] [facility] 2020-08-18 16:35:00 2020-08-18 16:35:00 Outpatient R MADELYN GONSALEZ [facility] [id number] [facility] 2020-08-14 13:40:00 2020-08-14 13:40:00 Outpatient R MADELYN GONSALEZ [facility] [id number] [facility] 2020-06-20 00:00:00 2020-06-20 00:00:00 Refill Madelyn Gonsalez [facility] 1..840.114 350.1.13.10 4.2.7.2.686 [id number] [facility] 2020-02-12 07:45:11 2020-02-12 14:16:57 Telemedici ne Visit Madelyn Gonsalez [facility] 1.2.840.114 350.1.13.10 4.2.7.2.686 [id number] [facility] 2020-02-12 13:40:00 2020-02-12 13:40:00 Outpatient R MADELYN GONSALEZ [facility] [id number] [facility] 2019-06-28 11:14:55 2019-07-02 12:48:06 Last Turner Visit 2, [facility] Madelyn Gonsalez [facility] 1.2.840.114 350.1.13.10 4.2.7.2.686 [id number] [facility] 2019-07-02 00:00:00 2019-07-02 00:00:00 Refill Madelyn Gonsalez [facility] 1.2.840.114 350.1.13.10 4.2.7.2.686 [id number] [facility] 2019-06-28 00:00:00 2019-06-28 00:00:00 Orders Only Doctor Unassigned, [place] [facility] 1.2.840.114 350.1.13.10 4.2.7.2.686 [id number] [facility] 2019-06-20 00:00:00 2019-06-20 00:00:00 Refill Madelyn Gonsalez [facility] 1.2.840.114 350.1.13.10 4.2.7.2.686 [id number] [facility] 2019-06-19 00:00:00 2019-06-19 00:00:00 Refill Madelyn Gonsalez [facility] 1.2.840.114 350.1.13.10 4.2.7.2.686 [id number] [facility] Results Test Description Test Time Test Comments Results Result Co mments Source AMMONIA [id number] 17:34:00* Test Item Value Reference Range Interpretation Comme nts AMMONIA (test code = 54A) <10 umol/L 11-32 L DRUGS [id number] 17:27:00* Test Item Value Reference Range Interpretation [...] the FDA and the [employer] (CAP) are more stringent than those required for this test. Therefore, the result should be interpreted with caution and close attention to other clinical and epidemiological data LIVER [id number] 16:05:00* Test Item Value Reference Range Interpretation [...] code = 31A) 9 IU/L 10-49 L [id number] 15:57:00* Test Item Value Reference Range Interpretation Comme nts ACETAMINPH (test code = 94M) <0.2 mg/dL 1.2-2.5 L ALCOHOL BLOOD (ETOH)2023-12-05 15:57:00* Test Item Value Reference Range Interpretation Comme nts ETOH (test code = HALC) ETHANOL * The result is to be used only for medical purposes ALCOHOL (test code = 56A) <10 mg/dL <=10 CT HEAD W/O [id number] 15:55:43 [facility] 1940 Sex: FExam: [...] by: Arik Cantu MD 12/05/2023 03:55 PM [facility] [id number] METABOLIC [id number] 15:50:00* Test Item Value Reference Range Interpretation [...] (test code = 31A) 12 IU/L 10-49 [id number] 15:49:00* Test Item Value Reference Range Interpretation [...] = MDIFF) NO XR CHEST 1 VIEW [id number] 15:11:49 [facility] 1940 Sex: FCHEST, SINGLE VIEWLOCATION [id number]: Confusion.A single view of the chest was [...] by: Osmany Valdez MD 12/05/2023 03:11 PM [facility] [id number] STIMULATING [id number] 17:57:00* Test Item Value Reference Range Interpretation Comme nts TSH (test code = 8189431495) See_Comment [Automated [employer]] The system which generated this result transmitted reference range: 0.45 - 4.70 mIU/L. The reference range was not used to interpret this result as normal/abnormal. Lab Interpretation (test code = 18734-0) Normal [facility] [id number] 17:57:00 * Test Item Value Reference Range Interpretation Comme nts TSH (test code = 9160866653) See_Comment [Automated [employer] CSHub] The system which generated this result transmitted reference range: 0.45 - 4.70 mIU/L. The reference range was not used to interpret this result as normal/abnormal. Lab Interpretation (test code = 47523-1) Normal [facility] [id number] 17:43:00* Test Item Value Reference Range Interpretation Comme nts FREE T4 (test code = 3426897745) 1.32 ng/dL 0.78-2.2 Lab Interpretation (test cod e = 30148-1) Normal [facility] [id number] 17:43:00* Test Item Value Reference Range Interpretation Comme nts FREE T4 (test code = 5490144403) 1.32 ng/dL 0.78-2.2 Lab Interpretation (test cod e = 57753-5) Normal [facility]. METABOLIC PANEL ([id number])2019-06-28 17:29:00* Test Item Value Reference Range Interpretation Comme nts NA (test code = 0944663531) 143 mmol/L 135-145 K (test code = 7690468023) 4.3 mmol/L 3.5-5 CL (test code = 8355171520) 110 mmol/L 98-108 H CO2 TOTAL (test code = 0718188289) 27 mmol/L 23-31 AGAP (test code = 0457400310) 2-16 BUN (test code = 8938561277) 17 mg/dL 7-23 GLUCOSE (test code = 6499501680) 98 mg/dL 70-110 CREATININE (test code = 0133060832) 0.87 mg/dL 0.5-1.04 TOTAL BILI (test code = 8699739277) 0.4 mg/dL 0.1-1.1 CALCIUM (test code = 2157247654) 9.9 mg/dL 8.6-10.6 T PROTEIN (test code = 0232429857) 7.0 g/dL 6.3-8.2 ALBUMIN (test code = 7329671436) 4.3 g/dL 3.5-5 ALK PHOS (test code = 0965977344) 60 U/L 34-122 ALT(SGPT) (test code = 1498074488) 17 U/L 9-51 AST(SGOT) (test code = 3984606298) 24 U/L 13-40 eGFR Calculation (Non-) (test code = 8891712622) mL/min/1.73m2 eGFR Calculation () (test code = 8185732002) mL/min/1.73m2 AALIYAH (test code = AALIYAH) Association [...] imaging tests). Lab Interpretation (test code = 64896-2) Abnormal [facility]. METABOLIC PANEL (62956)2019-06-28 17:29:00* Test Item Value Reference Range Interpretation Comme nts NA (test code = 6679609320) 143 mmol/L 135-145 K (test code = 3840687758) 4.3 mmol/L 3.5-5 CL (test code = 4240636368) 110 mmol/L 98-108 H CO2 TOTAL (test code = 8212426707) 27 mmol/L 23-31 AGAP (test code = 2431952312) 2-16 BUN (test code = 4124103205) 17 mg/dL 7-23 GLUCOSE (test code = 9154547963) 98 mg/dL 70-110 CREATININE (test code = 3514265016) 0.87 mg/dL 0.5-1.04 TOTAL BILI (test code = 6695519909) 0.4 mg/dL 0.1-1.1 CALCIUM (test code = 0350124823) 9.9 mg/dL 8.6-10.6 T PROTEIN (test code = 7624185250) 7.0 g/dL 6.3-8.2 ALBUMIN (test code = 0486857029) 4.3 g/dL 3.5-5 ALK PHOS (test code = 7971528947) 60 U/L 34-122 ALT(SGPT) (test code = 3045746399) 17 U/L 9-51 AST(SGOT) (test code = 8094367359) 24 U/L 13-40 eGFR Calculation (Non-) (test code = 7038674695) mL/min/1.73m2 eGFR Calculation () (test code = 8761612040) mL/min/1.73m2 AALIYAH (test code = AALIYAH) Association [...] imaging tests). Lab Interpretation (test code = 65053-5) Abnormal [facility] WITH [id number] 17:18:00* Test Item Value Reference Range Interpretation Comme nts WBC (test code = 6690-2) See_Comment [[employer]] The system which generated this result transmitted reference range: 4.30 - 11.10 10*3/?L. The reference range was not used to interpret this result as normal/abnormal. RBC (test code = 789-8) See_Comment L [[employer]] The system which generated this result transmitted [...] g/dL 31.6-35.1 L RDW-SD (test code = 65368-2) 46.6 fL 39-49.9 RDW-CV (test code = 788-0) 12.5 % 12-15.5 PLT (test code = 777-3) See_Comment [Automated messa ge] The system which generated this result transmitted reference range: 166 - 358 10*3/?L. The reference range was not used to interpret this result as normal/abnormal. MPV (test code = 60624-9) 10.8 fL 9.5-12.9 NRBC/100 WBC (test code = 0634938236) See_Comment [Automated [employer] ssage] The system which generated this result transmitted reference range: 0.0 - 10.0 /100 WBCs. The reference range was not used to interpret this result as normal/abnormal. NRBC x10^3 (test code = 5490100681) <0.01 See_Comment [Automated messa ge] The system which generated this result transmitted reference range: 10*3/?L. The reference range was not used to interpret this result as normal/abnormal. GRAN MAT (NEUT) % (test code = 770-8) 43.3 % IMM GRAN % (test code = 9877900962) 0.20 % LYMPH % (test code = 736-9) 44.8 % MONO % (test code = 5905-5) 7.3 % EOS % (test code = 713-8) 3.4 % BASO % (test code = 706-2) 1.0 % GRAN MAT x10^3(ANC) (test code = 2781030216) 2.27 10*3/uL 1.88-7.09 IMM GRAN x10^3 (test code = 4551515668) <0.03 0-0.06 LYMPH x10^3 (test code = 731-0) 2.35 10*3/uL 1.32-3.29 MONO x10^3 (test code = 742-7) 0.38 10*3/uL 0.33-0.92 EOS x10^3 (test code = 711-2) 0.18 10*3/uL 0.03-0.39 BASO x10^3 (test code = 704-7) 0.05 10*3/uL 0.01-0.07 Lab Interpretation (test code = 51240-4) Abnormal [facility] WITH [id number] 17:18:00* Test Item Value Reference Range Interpretation [...] g/dL 31.6-35.1 L RDW-SD (test code = 64597-7) 46.6 fL 39-49.9 RDW-CV (test code = 788-0) 12.5 % 12-15.5 PLT (test code = 777-3) See_Comment [Automated messa ge] The system which generated this result transmitted reference range: 166 - 358 10*3/?L. The reference range was not used to interpret this result as normal/abnormal. MPV (test code = 94910-5) 10.8 fL 9.5-12.9 NRBC/100 WBC (test code = 8472113924) See_Comment [Automated [employer] ssage] The system which generated this result transmitted reference range: 0.0 - 10.0 /100 WBCs. The reference range was not used to interpret this result as normal/abnormal. NRBC x10^3 (test code = 4190661229) <0.01 See_Comment [Automated messa ge] The system which generated this result transmitted reference range: 10*3/?L. The reference range was not used to interpret this result as normal/abnormal. GRAN MAT (NEUT) % (test code = 770-8) 43.3 % IMM GRAN % (test code = 7324660136) 0.20 % LYMPH % (test code = 736-9) 44.8 % MONO % (test code = 5905-5) 7.3 % EOS % (test code = 713-8) 3.4 % BASO % (test code = 706-2) 1.0 % GRAN MAT x10^3(ANC) (test code = 0649790259) 2.27 10*3/uL 1.88-7.09 IMM GRAN x10^3 (test code = 5447585214) <0.03 0-0.06 LYMPH x10^3 (test code = 731-0) 2.35 10*3/uL 1.32-3.29 MONO x10^3 (test code = 742-7) 0.38 10*3/uL 0.33-0.92 EOS x10^3 (test code = 711-2) 0.18 10*3/uL 0.03-0.39 BASO x10^3 (test code = 704-7) 0.05 10*3/uL 0.01-0.07 Lab Interpretation (test code = 53996-4) Abnormal [facility] Notes Date/Time Note Provider Source 2024-01-24 14:33:10 3197-17-41H24:33:10F ormatting of this note might be different from the original.Radiology report received from [facility] in providers basket for review 75370-4Rwcivfnwb encounter LuezJM2694-84-83Z52:33:37Telephone encounter NoteTXT1.2.840.352404.1.13.104.2.7 .2.507904|[id number] for patient zzdm38297-6OvzpWBFGVCZSDKEWsuadepi d C-CDA narrative [id number] M [address] Ou[id number] 81SUHLUSJMKHLVGVFCMGULCO4671-82-76 T14:33:371.2.840.936392.1.72.3.15| 1.2.840.293508.1.13.104.2.7.2.7278 [id number] Jaspreet Ta [facility] 2024-01-24 13:49:02 3601-84-44R87:49:02F ormatting of this note might be different from the original.Pathology report received from [facility] in [facility] basket for review 28060-9Cqyetukjh encounter UljrSN1567-17-93D21:49:42Telephone encounter NoteTXT1.2.840.878512.1.13.104.2.7 .2.643773|[id number] for patient ifzd75592-1WpfsOAJSERNYCRNFoavgnag d C-CDA narrative [address] Uk[id number] 40NCFHFQZXGULFKIZMRGWFGN2684-92-31 T13:49:421.2.840.114879.1.72.3.15| 1.2.840.041183.1.13.104.2.7.2.7278 [id number] [facility]"
[2024-03-21] MEDS ORDERED: NA CHLORIDE 0.9% 500 ML ONE (11:01)
--- NOTE | 2024-03-21 11:26 | RAD REPORT ---
EXAM DESCRIPTION: CT - Head Brain Wo Cont - 03/21/2024 10:22 am CLINICAL HISTORY: MENTAL STATUS CHANGE COMPARISON: Head Brain Wo Cont dated 12/14/2023 TECHNIQUE: Noncontrast head CT images were obtained without IV contrast. Multiplanar reformats were generated and reviewed. All CT scans are performed using dose optimization technique as appropriate and may include automated exposure control or mA/KV adjustment according to patient size. FINDINGS: No intracranial hemorrhage, mass, or edema. Midline structures are unremarkable. Stable ventricular caliber, with stable moderate diffuse parenchymal volume loss. Torres-white matter differentiation is preserved, without evidence of acute infarct. No abnormal extra- axial fluid collections. Stable patchy periventricular and deep white matter hypodensities, nonspecif ic, but suggestive of chronic small vessel ischemic changes. Mastoid air cells and visualized portions of the paranasal sinuses are clear. No acute bony findings. IMPRESSION: No evidence of an acute intracranial process. Stable chronic findings as above.
--- NOTE | 2024-03-21 11:28 | RAD REPORT ---
[facility] CLINICAL HISTORY: COUGH COMPARISON: Chest Single View dated 01/19/2024; Chest Single View dated 12/14/2023 TECHNIQUE: Portable AP view of the chest. FINDINGS: The lungs are clear. No pneumothorax or effusion. The cardiomediastinal contours are unre markable. IMPRESSION: No acute cardiopulmonary process.
[2024-03-21 11:50] LABS: Absolute Eosinophils 0.3 K/uL (0-0.5); Absolute Lymphocytes (CBC) 1.2 K/uL (0.7-4.9); Absolute Monocytes 0.4 K/uL (0.1-1.3); Basophils % 0.7 % (0-1.3); Eosinophils % 6.1 % (0-4.4); Hematocrit 30.3 % (36.0-45.0); Hemoglobin 9.6 g/dL (12.0-15.0); Lymphocytes % 24.3 % (15.3-44.8); MCHC 31.9 g/dL (32.0-36.0); MCV 94.2 fL (80-100); MPV 7.6 fL (7.6-11.3); Monocytes % 8.3 % (3.3-12.3); Neutrophils % 60.6 % (41.7-73.7); Platelets 419 thou/uL (152-406); RBC Red Blood Cell Count 3.21 M/uL (3.86-4.86); Red Cell Distribution Width 14.3 % (12.1-15.2)
[2024-03-21 11:54] LABS: PT Prothrombin Time 12.8 SECONDS (9.5-12.5); Protime INR 1.17
[2024-03-21 11:56] LABS: Specific Gravity 1.018 (1.005-1.030); Sqamous Epithelial <5 /HPF (None Seen); Urine Bacteria 20-50 /HPF (<20); Urine Bilirubin NEGATIVE (Negative); Urine Blood 2+ (Negative); Urine Clarity Extremely Turbid (Clear); Urine Color Light-Orange (Yellow); Urine Culture Reflex Order REFLEXED; Urine Glucose NEGATIVE (Negative); Urine Ketones NEGATIVE (Negative); Urine Microscopic Reflex YN ORDER UMIC; Urine Mucus 1+ /HPF (None Seen); Urine Nitrite 2+ (Negative); Urine Protein 1+ (Negative); Urine RBC >50 /HPF (None Seen); Urine Urobilinogen Normal (Normal); Urine WBC >50 /HPF (<5); Urine WBC Clump Many /HPF (None Seen)
[2024-03-21 12:14] LABS: AST/SGOT 14 U/L (15-37); Albumin 2.9 g/dL (3.4-5.0); Albumin/Globulin Ratio 0.7 (1.1-1.8); Alkaline Phosphatase 82 U/L (45-117); Anion Gap 6.2 mEq/L (5.0-15.0); BUN Blood Urea Nitrogen 27 mg/dL (7-18); Bicarbonate 30 mEq/L (21-32); Bilirubin Total 0.2 mg/dL (0.2-1.0); Globulin 4.3 g/dL (2.3-3.5); Glomerular Filtration Rate 55 ml/min (=/>90); Glucose Level 87 mg/dL (74-106); Lipase 39 U/L (13-75); Magnesium 2.5 mg/dL (1.6-2.4); NT PRO-BNP 1017 pg/mL (<450); Potassium 4.2 mEq/L (3.5-5.1); Protein, Total 7.2 g/dL (6.4-8.2); Sodium Level 139 mEq/L (136-145); Troponin High Sensitivity 10.7 pg/mL (<58.9)
[2024-03-21 12:15] LABS: ALT/SGPT < 14 U/L (13-56); Bilirubin Direct < 0.2 mg/dL (0-0.2)
--- NOTE | 2024-03-21 12:35 | EDPHYS ---
Physician Documentation [facility] Name: Laura Meléndez Age: 83 yrs Sex: Female : 1940 Arrival Date: 03/21/2024 Time: 09:35 Bed 8 Private MD: ALEX Physician Andre Kennedy HPI: 03/21 11:48 This 83 yrs old Female presents to ER via EMS with complaints of chest pain , jody now denies. 11:48 The patient or guardian reports chest pain that is located primarily in the anterior jody chest wall, bilaterally. Onset: at an unknown time. pt has dementia. The pain does not radiate. Onset: The symptoms/episode began/occurred at an unknown time. Onset: The symptoms/episode began/occurred this morning, today. Associated signs and symptoms: The patient has no apparent associated signs or symptoms. The chest pain is described as poor historian. Duration: The patient or guardian reports a single episode, that lasted an unknown period of time. Modifying factors: The symptoms are alleviated by nothing. the symptoms are aggravated by nothing. Severity of pain: At its worst the pain was mild in the emergency department the pain has resolved and did so just prior to arrival. Severity of symptoms: At their worst the symptoms were mild in the emergency department the symptoms have resolved and did so just prior to arrival. It is unknown whether or not the patient has had similar symptoms in the past. Historical: - Allergies: 10:05 No Known Allergies; ld1 - PMHx: 10:05 Alzheimer's disease; Anemia; Anxiety; Dementia; Hypertensive disorder; Hypothyroidism; ld1 Schizophrenia; - Immunization history:: Adult Immunizations up to date. - Infectious Disease History:: Denies. - Social history:: Smoking status: Patient denies any tobacco usage or history of. - Family history:: not pertinent. ROS: 11:48 Constitutional: Negative for fever, chills, and weight loss, Eyes: Negative for injury, jody pain, redness, and discharge, ENT: Negative for injury, pain, and discharge, Neck: Negative for injury, pain, and swelling, Cardiovascular: Negative for chest pain, palpitations, and edema, Respiratory: Negative for shortness of breath, cough, wheezing, and pleuritic chest pain, Abdomen/GI: Negative for abdominal pain, nausea, vomiting, diarrhea, and constipation, Back: Negative for injury and pain, : Negative for injury, bleeding, discharge, and swelling, MS/Extremity: Negative for injury and deformity, Skin: Negative for injury, rash, and discoloration, Neuro: Negative for headache, weakness, numbness, tingling, and seizure, Psych: Negative for depression, anxiety, suicide ideation, homicidal ideation, and hallucinations, Allergy/Immunology: Negative for hives, rash, and allergies, Endocrine: Negative for neck swelling, polydipsia, polyuria, polyphagia, and marked weight changes, 11:48 Cardiovascular: Positive for chest pain, Exam: 11:48 Constitutional: This is a well developed, well nourished patient who is awake, alert, jody and in no acute distress. Head/Face: Normocephalic, atraumatic. Eyes: Pupils equal round and reactive to light, extra-ocular motions intact. Lids and lashes normal. Conjunctiva and sclera are non-icteric and not injected. Cornea within normal limits. Periorbital areas with no swelling, redness, or edema. ENT: Nares patent. No nasal discharge, no septal abnormalities noted. Tympanic membranes are normal and external auditory canals are clear. Oropharynx with no redness, swelling, or masses, exudates, or evidence of obstruction, uvula midline. Mucous membranes moist. Neck: Trachea midline, no thyromegaly or masses palpated, and no cervical lymphadenopathy. Supple, full range of motion without nuchal rigidity, or vertebral point tenderness. No Meningismus. Chest/axilla: Normal chest wall appearance and motion. Nontender with no deformity. No lesions are appreciated. Cardiovascular: Regular rate and rhythm with a normal S1 and S2. No gallops, murmurs, or rubs. Normal PMI, no JVD. No pulse deficits. Respiratory: Lungs have equal breath sounds bilaterally, clear to auscultation and percussion. No rales, rhonchi or wheezes noted. No increased work of breathing, no retractions or nasal flaring. Abdomen/GI: Soft, non-tender, with normal bowel sounds. No distension or tympany. No guarding or rebound. No evidence of tenderness throughout. Back: No spinal tenderness. No costovertebral tenderness. Full range of motion. Female : Normal external genitalia. Skin: Warm, dry with normal turgor. Normal color with no rashes, no lesions, and no evidence of cellulitis. MS/ Extremity: Pulses equal, no cyanosis. Neurovascular intact. Full, normal range of motion. Neuro: Awake and alert, GCS 15, oriented to person, place, time, and situation. Cranial nerves II-XII grossly intact. Motor strength 5/5 in all extremities. Sensory grossly intact. Cerebellar exam normal. Normal gait. Psych: Awake, alert, with orientation to person, place and time. Behavior, mood, and affect are within normal limits. 11:48 ECG was reviewed by the Attending Physician. Vital Signs: 10:04 BP 101 / 44; Pulse 70; Resp 18; Temp 98.1(TE); Pulse Ox 100% on R/A; Height 5 ft. 3 in. ld1 ; Pain 0/10; 10:11 BP 102 / 46 LA Supine (auto/reg); Pulse 68 MON; Resp 13 S; Temp 98.1(O); Pulse Ox 100% jg11 on R/A; 11:40 BP 126 / 52; Pulse 62; Resp 18; Pulse Ox 100% ; ld1 10:04 Pain Scale: Adult ld1 MDM: 09:39 Patient medically screened. jody 11:52 Differential diagnosis: abnormal EKG, acute myocardial infarction, acute pericarditis, jody anxiety, chest wall pain, hiatal hernia, pancreatitis, peptic ulcer disease, pericarditis, pleurisy, pneumonia, pneumothorax, pulmonary embolus, stable angina, thoracic aortic disection, unstable angina. Differential Diagnosis altered mental status, sepsis, flu. HEART Score: History: Slightly Suspicious (0), ECG: Normal (0), Age: > or = 65 years (2), Risk Factors: > or = 3 Risk factors for atherosclerotic disease (2), [Hypercholesterolemia] [Hypertension] [+ Family HX] Troponin: < or = 1 x Normal Limit (0). The patient was given aspirin in the Emergency Department. DELORIS Risk Score: 1 - patient's age is greater or equal to 65 years, 1 - Three or more CAD risk factors, 1 - Recent [<24hrs] Severe Angina, TOTAL SCORE = 3. Data reviewed: vital signs, nurses notes, EMS record, lab test result(s), EKG, radiologic studies, CT scan, plain films. Consideration of Admission/Observation Escalation of care including admission/observation considered. I considered the following discharge prescriptions or medication management in the emergency department Medications were administered in the Emergency Department. See MAR. Independent interpretation of the following test(s) in the Emergency Department EKG: See my EKG interpretation above. Test considered but Not performed: Ultrasound no 2 d echo. Historians other than the Patient: Daughter/Son: daughter well informed. Care significantly affected by the following chronic conditions: Diabetes, Hypertension. Counseling: I had a detailed discussion with the patient and/or guardian regarding the historical points, exam findings, and any diagnostic results supporting the discharge/admit diagnosis, lab results, radiology results, the need for outpatient follow up, for definitive care, an pocketbook maker. 03/21 10:08 Order name: Basic Metabolic Panel; Complete Time: 12:32 [facility] 03/21 10:08 Order name: CBC with Diff; Complete Time: 12:32 [facility] 03/21 10:08 Order name: LFT's; Complete Time: 12:32 03/21 10:08 Order name: Magnesium; Complete Time: 12:32 03/21 10:08 Order name: NT PRO-BNP; Complete Time: 12:32 03/21 10:08 Order name: PT-INR; Complete Time: 12:32 03/21 10:08 Order name: Troponin HS; Complete Time: 12:32 jody 03/21 10:08 Order name: Urinalysis w/ reflexes; Complete Time: 12:32 [facility] 03/21 10:08 Order name: Lipase; Complete Time: 12:32 jody 03/21 11:59 Order name: Urine Culture [facility] 03/21 10:08 Order name: XRAY Chest (1 view); Complete Time: 11:47 [facility] 03/21 10:08 Order name: CT Head Brain wo Cont; Complete Time: 11:47 [facility] 03/21 10:08 Order name: Cardiac monitoring; Complete Time: 11:21 03/21 10:08 Order name: EKG - Nurse/Tech; Complete Time: 11:21 [facility] 03/21 10:08 Order name: IV Saline Lock; Complete Time: 11:37 [facility] 03/21 10:08 Order name: Labs collected and sent; Complete Time: 11:37 [facility] 03/21 10:08 Order name: O2 Per Protocol; Complete Time: 10:15 03/21 10:08 Order name: O2 Sat Monitoring; Complete Time: 10:15 jody EC:48 Rate is 56 beats/min. Rhythm is regular. QRS [place] is Normal. [place] interval is normal. QRS jody interval is normal. QT interval is normal. No Q waves. T waves are Normal. No ST changes noted. Clinical impression: Normal ECG, Sinus bradycardia, and No evidence of ischemia. Interpreted by me. Reviewed by me. Administered Medications: 11:37 Drug: NS 0.9% IV 500 ml IV at bolus once Route: IV; Rate: bolus; Site: right mb9 antecubital; 13:16 Drug: Rocephin IV 1 grams IV at per protocol once; Given slow IV push per pharmacy ld1 instructions Route: IV; Rate: per protocol; Site: right antecubital; 13:17 Drug: Ciprofloxacin PO 500 mg PO once Route: PO; ld1 Disposition Summary: 03/21/24 12:34 Discharge Ordered Notes: Location: Home jody Problem: new jody Symptoms: have improved jody Condition: Stable jody Diagnosis - Chest pain, unspecified jody - Alzheimer's disease, unspecified jody - Dementia in other diseases classified elsewhere without behavioral disturbance jody - UTI/ Urinary tract infection, site not specified jody - 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 jody Followup: jody - With: Private Physician - When: 2 - 3 days - Reason: Recheck today's complaints, Continuance of care, Re-evaluation by your physician Followup: jody - With: Chilo Kumar MD - When: 5 - 6 days - Reason: Recheck today's complaints, Re-evaluation by your physician Discharge Instructions: - Discharge Summary Sheet jody - Nonspecific Chest Pain, Adult jody - Dementia jody - Urinary Tract Infection, Adult jody - Urinary Tract Infection, Adult, Opma-ay-Qowb jody - Nonspecific Chest Pain, Adult, Mtht-qe-Wwty jody - Dementia, Vtly-tr-Ehkz jody - Living With Alzheimer's Disease jody Forms: - Medication Reconciliation Form [facility] - Antibiotic Education jody - Prescription Opioid Use jody - Patient Portal Instructions [facility] - Leadership Thank You Letter [facility] Prescriptions: - cefdinir 300 mg Oral capsule - take 1 capsule ORAL route 2 times per day for 7 days; 14 capsule; Refills: 0, jody Product Selection Permitted - Cipro 250 mg Oral tablet - take 1 tablet ORAL route every 12 hours; 14 tablet; Refills: 0, Product jody Selection Permitted - Pepcid 20 mg Oral Tablet - take 1 tablet ORAL route every 12 hours for 10 days; 20 tablet; Refills: 0, jody Product Selection Permitted Signatures: Dispatcher [employer] EDAndre Andrew MD MD cha Sims, Lauren RN RN ld1 Becky, Elizabeth Rizzo RN RN mb9 Corrections: (The following items were deleted from the chart) 10:09 10:09 Chest Single View+RAD.RAD.BRZ ordered. EDMS EDMS 10:09 10:09 Head Brain Wo Cont+CT.RAD.BRZ ordered. EDMS EDMS 11:37 11:37 Troponin High Sensitivity+C.LAB.BRZ ordered. EDMS EDMS
--- NOTE | 2024-03-21 12:35 | ER ---
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 Pt denies ld1 Chest pain. Coronavirus screen: At this time, the client does not indicate any symptoms associated with coronavirus-19. Ebola Screen: No symptoms or risks identified at this time. Initial Sepsis Screen: Does the patient meet any 2 criteria? No. Patient's initial sepsis screen is negative. Does the patient have a suspected source of infection? No. Patient's initial sepsis screen is negative. Risk Assessment: Do you want to hurt yourself or someone else? Patient reports no desire to harm self or others. Onset of symptoms was March 21, 2024. 10:04 Method Of Arrival: EMS: [facility] ld1 10:04 Acuity: PARKER 3 ld1 Triage Assessment: 10:05 General: Appears in no apparent distress. comfortable, Behavior is calm, cooperative, ld1 appropriate for age. Pain: Denies pain. EENT: No signs and/or symptoms were reported regarding the EENT system. Neuro: Level of Consciousness is awake, alert, obeys commands, Oriented to person. Cardiovascular: Capillary refill < 3 seconds Patient's skin is warm and dry. Respiratory: Airway is patent Respiratory effort is even, unlabored. GI: Abdomen is flat, non-distended. : No signs and/or symptoms were reported regarding the genitourinary system. Derm: No signs and/or symptoms reported regarding the dermatologic system. Musculoskeletal: No signs and/or symptoms reported regarding the musculoskeletal system. Historical: - Allergies: 10:05 No Known Allergies; ld1 - PMHx: 10:05 Alzheimer's disease; Anemia; Anxiety; Dementia; Hypertensive disorder; Hypothyroidism; ld1 Schizophrenia; - Immunization history:: Adult Immunizations up to date. - Infectious Disease History:: Denies. - Social history:: Smoking status: Patient denies any tobacco usage or history of. - Family history:: not pertinent. Screenin:05 [facility] ED Fall Risk Assessment (Adult) History of falling in the last 3 months, ld1 including since admission No falls in past 3 months (0 pts). Abuse screen: Denies threats or abuse. Denies injuries from another. Nutritional screening: No deficits noted. Tuberculosis screening: No symptoms or risk factors identified. Assessment: 10:05 Reassessment: See triage assessment. ld1 11:41 General: Appears in no apparent distress. comfortable, Behavior is calm, cooperative, ld1 appropriate for age. Pain: Denies pain. Neuro: Level of Consciousness is awake, alert, obeys commands, Oriented to none. Cardiovascular: Capillary refill < 3 seconds Patient's skin is warm and dry. Rhythm is sinus rhythm. Respiratory: Airway is patent Respiratory effort is even, unlabored. GI: Abdomen is round non-distended. : No signs and/or symptoms were reported regarding the genitourinary system. EENT: No signs and/or symptoms were reported regarding the EENT system. Derm: No signs and/or symptoms reported regarding the dermatologic system. Musculoskeletal: No signs and/or symptoms reported regarding the musculoskeletal system. 13:18 Reassessment: [facility]. Waiting on transport to arrive to get ld1 patient. Vital Signs: 10:04 BP 101 / 44; Pulse 70; Resp 18; Temp 98.1(TE); Pulse Ox 100% on R/A; Height 5 ft. 3 in. ld1 ; Pain 0/10; 10:11 BP 102 / 46 LA Supine (auto/reg); Pulse 68 MON; Resp 13 S; Temp 98.1(O); Pulse Ox 100% jg11 on R/A; 11:40 BP 126 / 52; Pulse 62; Resp 18; Pulse Ox 100% ; ld1 10:04 Pain Scale: Adult ld1 ED Course: 09:38 Patient arrived in ED. ld1 09:39 Andre Kennedy MD is Attending Physician. jody 10:05 Triage completed. ld1 10:05 Arm band placed on right wrist. ld1 10:05 Patient has correct armband on for positive identification. Placed in gown. Bed in low ld1 position. Call light in reach. Side rails up X2. phototypesetting equipment monitor on. Pulse ox on. NIBP on. Door closed. Noise minimized. Warm blanket given. 10:05 No provider procedures requiring assistance completed. ld1 10:24 CT Head Brain wo Cont In Process Unspecified. EDMS 10:32 XRAY Chest (1 view) In Process Unspecified. EDMS 11:04 EKG done, by ED staff, reviewed by Andre Kennedy MD. Missed attempt(s): 24 gauge in jg11 right wrist. Bleeding controlled, band aid applied, catheter tip intact. 11:37 Initial lab(s) drawn, by nv, sent to lab. Urine collected: clean catch specimen, mb9 cloudy. Inserted saline lock: 22 gauge in right antecubital area, using aseptic technique. 11:40 Abigail De Los Santos, RN is Primary Nurse. ld1 11:40 Straight cath inserted, using sterile technique, 16 Fr. Returned cloudy urine. Patient ld1 tolerated well. 12:34 Chilo Kumar MD is Referral Physician. jody Administered Medications: 11:37 Drug: NS 0.9% IV 500 ml IV at bolus once Route: IV; Rate: bolus; Site: right mb9 antecubital; 13:16 Drug: Rocephin IV 1 grams IV at per protocol once; Given slow IV push per pharmacy ld1 instructions Route: IV; Rate: per protocol; Site: right antecubital; 13:17 Drug: Ciprofloxacin PO 500 mg PO once Route: PO; ld1 Outcome: 12:34 Discharge ordered by . [facility] 14:22 Patient left the ED. Addendum: 03/24/2024 07:06 Addendum: Culture Results: Positive urine culture. No further action required. Bacteria e b sensitive to prescribed antibiotic. Signatures: Dispatcher [employer] EDMS Andre Kennedy MD MD cha Williams, Irene RN RN iw Madelyn Schwartz Lauren, JD RN ld1 Elizabeth Pena RN RN Spenser Chaudhry jg11 Corrections: (The following items were deleted from the chart) 03/21 10:11 09:30 BP 102 / 46 Supine Auto L Arm Regular; Pulse 68bpm Monitor; Resp 13bpm; jg11 Spontaneous; Pulse Ox 100% RA; Temp 98.1F Oral; jg11
[2024-03-21] MEDS ORDERED: CEFTRIAXONE 1000 MG/VIAL ONE (13:08)
[2024-03-21] MEDS ORDERED: CIPROFLOXACIN HCL 500 MG TAB ONE (13:09)
[2024-03-21 14:42] VITALS: BP 126/52; TEMP 98.1; O2SAT 100
--- NOTE | 2024-03-24 11:53 | EKG ---
Test Date: 2024-03-21 Test Time: 11:00:02 [employer] Worker: ANDREWS MEASUREMENT RESULTS: Intervals: Rate: 56 IA: 150 QRSD: 82 QT: 468 QTc: 451 [place]: P: 68 IA: 150 QRS: 52 T: 47 INTERPRETIVE STATEMENTS: Sinus bradycardia Otherwise normal ECG Compared to ECG 01/19/2024 20:17:37 Myocardial infarct finding no longer present Electronically Signed On 03-24-24 11:49:50 CDT by Randy Jay
== END 2024-03-21 14:22 | disposition home or self-care (01) ==
LOC: ER 09:35
DX: R07.89 Other chest pain (principal); N39.0 Urinary tract infection, site not specified; G30.9 Alzheimer's disease, unspecified; F02.80 Dementia in other diseases classified elsewhere, unspecified severity, without behavioral disturbance, psychotic disturbance, mood disturbance, and anxiety; Z79.01 Long term (current) use of anticoagulants
CPT/HCPCS: 93005; 87088; 85025; 81001; 87086; 80048; 36415; 83735; 85610; 80076; 87077; 87186; 84484; 83690; 83880; 70450; 71045; 51702; 96374; 99285; J7040; J0696

== ENCOUNTER 2024-12-16 08:37 | Inpatient (IN) | payer OTHER ==
--- OUTSIDE RECORDS SUMMARY | 2024-12-16 08:42 | XMS REPORT | Continuity of Care Document ---
Author Name Unknown Address [address] [facility] [address] [place] [address] [facility] Address [address] [facility] [address] [place] [address] Care Team Providers Care Reading Teacher Name Role Phone BHARATHI BOJORQUEZ Primary Care Physician Diego Valverde RN, Yuki Borges Attending Clinician Unavail MALCOLM Sanchez Attending Clinician MALCOLM Storey Attending Clinician Malcolm Storey MD Attending Clinician [phone] Theodore Woods MD Attending Clinician [phone] ARTIE ALVAREZ Attending Clinician DR ARTIE Modi Attending Clinician Diego child GC_SEFP_Rivera_A Attending Clinician Unavailable Madelyn Gonsalez MD Attending Clinician [phone] MADELYN GONSALEZ Attending Clinician Can garcia 2, [facility] Attending Clinician Unavailable Doctor Unassigned, Deforest Attending Clinician U DR ARTIE Gary Admitting Clinician ARIK Diaz Admitting Clinician Unavailable GC_SEFP_Rivera_A Admitting Clinician Unavailable Payers Payer Name Policy Type Policy Number Effective Date Expirati on Date Source [id number] 2023 00:00:00 [employer] (MEDICARE REPLACEMENT/ADVAN TAGE - PPO) [id number] Problems Condition Name Condition Details Condition Category Status Onset Date Resolution Date Last Treatment Date Treating Clinician Comments Source Hyperlipid emia Hyperlipid emia Disease Active 10-29 00:00: 00 [facility] Allergic conjunctiv itis, bilateral Allergic conjunctiv itis, bilateral Disease Recurre nce 10-29 00:00: 00 [facility] Other seasonal allergic rhinitis Other seasonal allergic rhinitis Disease Active 10-29 00:00: 00 [facility] Essential hypertensi on Essential hypertensi on Disease Active 10-29 00:00: 00 [facility] Iron deficiency anemia due to chronic blood loss Iron deficiency anemia due to chronic blood loss Disease Active 10-29 00:00: 00 [facility] 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 - 50 beats per minute 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 - 50 beats per minute Disease Active 10-29 00:00: 00 [facility] Fatigue Fatigue Disease Active 10-29 00:00: 00 [facility] Allergies, Adverse Reactions, Alerts Allergy Name Allergy Type Status Severity Reaction(s) Onset Date Inactive Date Treating Clinician Comments Source NO KNOWN ALLERGIE S Drug Class Active [facility] No Known Allergie s DA Active [facility] Social History Social Habit Start Date Stop Date Quantity Comments Source [facility] Social function 2024-02-16 00:00:00 2024-02-16 00:00:00 [facility] Alcohol intake 2024-02-16 00:00:00 2024-02-16 00:00:00 Ex-drinker (finding) [facility] Tobacco use and exposure 2020-09-22 00:00:00 2020-09-22 00:00:00 Smokeless tobacco non-user [facility] Cigarettes smoked current (pack per day) - Reported 2020-09-22 00:00:00 2020-09-22 00:00:00 [facility] Cigarette pack-years 2020-09-22 00:00:00 2020-09-22 00:00:00 [facility] Alcoholic beverage intake 2020-09-22 00:00:00 2020-09-22 00:00:00 Ex-drinker (finding) [facility] Tobacco Comment 2020-02-12 00:00:00 2020-02-12 00:00:00 social smoker [facility] Exposure to SARS-CoV-2 (event) 2020-01-12 00:00:00 2020-02-11 11:31:00 Unable to assess [facility] History of tobacco use 1957-10-[birth year] 00:00:00 2015-02-11 00:00:00 Cigarette Smoker [facility] Sex assigned at 1940 00:00:00 1940 00:00:00 [facility] Smoking Status Start Date Stop Date Source Ex-smoker 2020-09-22 00:00:00 2020-09-22 00:00:00 [facility] Tobacco smoking consumption unknown [facility] Medications Ordered Medication Name Filled Medication Name Start Date Stop Date Current Medication? Ordering Clinician Indication Dosage Frequency Signature (SIG) Comments Components Source levothyroxi ne 50 mcg tablet 03-04 00:00: 00 Yes [id number] TAKE 1 TABLET BY MOUTH EVERY MORNING. Keep on file. [facility] Cholecalcif mook, Vitamin D3, (VITAMIN D3) 2,000 unit tablet 2019-10 23:55: 44 Yes 2{tbl} Take 2 tablets by mouth daily. [facility] Cholecalcif mook, Vitamin D3, (VITAMIN D3) 2,000 unit tablet 2019-10 17:55: 44 Yes 2{tbl} Take 2 tablets by mouth daily. [facility] losartan 50 mg tablet 2019-10 00:00: 00 Yes [id number] 50mg Take 1 tablet by mouth every morning. [facility] amLODIPine 10 mg tablet 2019-10 00:00: 00 Yes [id number] TAKE 1 TABLET BY MOUTH EVERY NIGHT AT BEDTIME [facility] Cholecalcif mook, Vitamin D3, (VITAMIN D3) 2,000 unit tablet 02-11 18:57: 37 Yes 2{tbl} Take 2 tablets by mouth daily. [facility] levothyroxi ne 50 mcg tablet 02-11 00:00: 00 03-04 00:00 :00 No [id number] TAKE 1 TABLET BY MOUTH EVERY MORNING. Keep on file. [facility] losartan 50 mg tablet 2018-10 00:00: 00 Yes [id number] 50mg Take 1 tablet by mouth every morning. [facility] amLODIPine 10 mg tablet 2018-10 00:00: 00 Yes [id number] TAKE 1 TABLET BY MOUTH EVERY NIGHT AT BEDTIME [facility] amLODIPine 10 mg tablet 07-06 00:00: 00 Yes [id number] TAKE 1 TABLET BY MOUTH EVERY NIGHT AT BEDTIME [facility] losartan 50 mg tablet 07-06 00:00: 00 Yes [id number] 50mg Take 1 tablet by mouth every morning. [facility] LOSARTAN 50 mg tablet 07-03 00:00: 00 07-06 00:00 :00 No 50mg TAKE 1 TABLET BY MOUTH EVERY MORNING [facility] amLODIPine 10 mg tablet 07-03 00:00: 00 07-06 00:00 :00 No [id number] TAKE 1 TABLET BY MOUTH EVERY NIGHT AT BEDTIME [facility] LOSARTAN 50 mg tablet 06-28 00:00: 00 Yes [id number] 50mg TAKE 1 TABLET BY MOUTH EVERY MORNING [facility] AMLODIPINE 10 mg tablet 06-28 00:00: 00 07-02 00:00 :00 No [id number] TAKE 1 TABLET BY MOUTH EVERY NIGHT AT BEDTIME [facility] levothyroxi ne 50 mcg tablet 06-20 00:00: 00 02-11 00:00 :00 No [id number] TAKE 1 TABLET BY MOUTH EVERY MORNING [facility] levothyroxi ne 50 mcg tablet 05-11 00:00: 00 06-20 17:33 :41 No [id number] TAKE 1 TABLET BY MOUTH EVERY MORNING [facility] amLODIPine 10 mg tablet 05-11 00:00: 00 06-20 00:00 :00 No [id number] TAKE 1 TABLET BY MOUTH EVERY NIGHT AT BEDTIME [facility] losartan 50 mg tablet 05-11 00:00: 00 06-20 00:00 :00 No 50mg Take 1 tablet by mouth every morning. [facility] methylPREDN ISolone (MEDROL DOSE-PEDRO) 4 mg tablets 406 00:00: 00 10-29 00:00 :00 No [facility] metoprolol succinate XL (TOPROL XL) 100 mg 24 hr tablet 12-03 00:00: 00 10-29 00:00 :00 No [facility] amLODIPine (NORVASC) 10 mg tablet 12-03 00:00: 00 03-02 00:00 :00 No [facility] Immunizations Ordered Immunization Name Filled Immunization Name Date Status Comments Source Influenza High Dose Quad 2020-07-11 00:00:00 Completed [facility] Zoster Vaccine Recombinant 2020-07-11 00:00:00 Completed [facility] Influenza High Dose Quad 2020-07-11 00:00:00 Completed [facility] Zoster Vaccine Recombinant 2020-07-11 00:00:00 Completed [facility] Influenza High Dose Quad 2020-07-11 00:00:00 Completed [facility] Zoster Vaccine Recombinant 2020-07-11 00:00:00 Completed [facility] Influenza Virus Vaccine 2019-07-28 00:00:00 Completed [facility] Influenza Virus Vaccine 2019-07-28 00:00:00 Completed [facility] Influenza Virus Vaccine 2019-07-28 00:00:00 Completed [facility] Influenza Virus Vaccine 2019-07-28 00:00:00 Completed [facility] Influenza Virus Vaccine 2019-07-28 00:00:00 Completed [facility] Influenza Virus Vaccine 2019-07-28 00:00:00 Completed [facility] Influenza High Dose 2018-09-05 00:00:00 Completed [facility] Influenza High Dose 2018-09-05 00:00:00 Completed [facility] Influenza High Dose 2018-09-05 00:00:00 Completed [facility] Influenza High Dose 2018-09-05 00:00:00 Completed [facility] Influenza High Dose 2018-09-05 00:00:00 Completed [facility] Influenza High Dose 2018-09-05 00:00:00 Completed [facility] Influenza High Dose 2018-09-05 00:00:00 Completed [facility] Influenza High Dose 2018-09-05 00:00:00 Completed [facility] Influenza High Dose 2018-09-05 00:00:00 Completed [facility] Influenza High Dose 2018-09-05 00:00:00 Completed [facility] Influenza High Dose 2018-09-05 00:00:00 Completed [facility] Pneumococcal 13 Conjugate, PCV13 (Prevnar 13) 2018-05-11 00:00:00 Completed [facility] Pneumococcal 13 Conjugate, PCV13 (Prevnar 13) 2018-05-11 00:00:00 Completed [facility] Pneumococcal 13 Conjugate, PCV13 (Prevnar 13) 2018-05-11 00:00:00 Completed [facility] Pneumococcal 13 Conjugate, PCV13 (Prevnar 13) 2018-05-11 00:00:00 Completed [facility] Pneumococcal 13 Conjugate, PCV13 (Prevnar 13) 2018-05-11 00:00:00 Completed [facility] Pneumococcal 13 Conjugate, PCV13 (Prevnar 13) 2018-05-11 00:00:00 Completed [facility] Pneumococcal 13 Conjugate, PCV13 (Prevnar 13) 2018-05-11 00:00:00 Completed [facility] Pneumococcal 13 Conjugate, PCV13 (Prevnar 13) 2018-05-11 00:00:00 Completed [facility] Pneumococcal 13 Conjugate, PCV13 (Prevnar 13) 2018-05-11 00:00:00 Completed [facility] Pneumococcal 13 Conjugate, PCV13 (Prevnar 13) 2018-05-11 00:00:00 Completed [facility] Pneumococcal 13 Conjugate, PCV13 (Prevnar 13) 2018-05-11 00:00:00 Completed [facility] Influenza Virus Vaccine 2017-10-05 00:00:00 Completed [facility] Influenza Virus Vaccine 2017-10-05 00:00:00 Completed [facility] Influenza Virus Vaccine 2017-10-05 00:00:00 Completed [facility] Influenza Virus Vaccine 2017-10-05 00:00:00 Completed [facility] Influenza Virus Vaccine 2017-10-05 00:00:00 Completed [facility] Influenza Virus Vaccine 2017-10-05 00:00:00 Completed [facility] Influenza Virus Vaccine 2017-10-05 00:00:00 Completed [facility] Influenza Virus Vaccine 2017-10-05 00:00:00 Completed [facility] Influenza Virus Vaccine 2017-10-05 00:00:00 Completed [facility] Influenza Virus Vaccine 2017-10-05 00:00:00 Completed [facility] Influenza Virus Vaccine 2017-10-05 00:00:00 Completed [facility] Pneumococcal Polysaccharide, PPSV23 (PNEUMOVAX) 2011-05-11 00:00:00 Completed [facility] Pneumococcal Polysaccharide, PPSV23 (PNEUMOVAX) 2011-05-11 00:00:00 Completed [facility] Pneumococcal Polysaccharide, PPSV23 (PNEUMOVAX) 2011-05-11 00:00:00 Completed [facility] Pneumococcal Polysaccharide, PPSV23 (PNEUMOVAX) 2011-05-11 00:00:00 Completed [facility] Pneumococcal Polysaccharide, PPSV23 (PNEUMOVAX) 2011-05-11 00:00:00 Completed [facility] Pneumococcal Polysaccharide, PPSV23 (PNEUMOVAX) 2011-05-11 00:00:00 Completed [facility] Pneumococcal Polysaccharide, PPSV23 (PNEUMOVAX) 2011-05-11 00:00:00 Completed [facility] Pneumococcal Polysaccharide, PPSV23 (PNEUMOVAX) 2011-05-11 00:00:00 Completed [facility] Pneumococcal Polysaccharide, PPSV23 (PNEUMOVAX) 2011-05-11 00:00:00 Completed [facility] Pneumococcal Polysaccharide, PPSV23 (PNEUMOVAX) 2011-05-11 00:00:00 Completed [facility] Pneumococcal Polysaccharide, PPSV23 (PNEUMOVAX) 2011-05-11 00:00:00 Completed [facility] Pneumococcal Polysaccharide, PPSV23 (PNEUMOVAX) 2011-05-11 00:00:00 Completed [facility] Influenza Virus Vaccine Unknown Completed [facility] Pneumococcal 13 Conjugate, PCV13 (Prevnar 13) Unknown Completed [facility] Pneumococcal Polysaccharide, PPSV23 (PNEUMOVAX) Unknown Completed [facility] Influenza High Dose Unknown Completed [facility] Influenza High Dose Quad Unknown Completed [facility] Zoster Vaccine Recombinant Unknown Completed [facility] Influenza Virus Vaccine Unknown Completed [facility] Pneumococcal 13 Conjugate, PCV13 (Prevnar 13) Unknown Completed [facility] Pneumococcal Polysaccharide, PPSV23 (PNEUMOVAX) Unknown Completed [facility] Influenza High Dose Unknown Completed [facility] Influenza High Dose Quad Unknown Completed [facility] Zoster Vaccine Recombinant Unknown Completed [facility] Influenza Virus Vaccine Unknown Completed [facility] Pneumococcal 13 Conjugate, PCV13 (Prevnar 13) Unknown Completed [facility] Pneumococcal Polysaccharide, PPSV23 (PNEUMOVAX) Unknown Completed [facility] Influenza High Dose Unknown Completed [facility] Influenza High Dose Quad Unknown Completed [facility] Zoster Vaccine Recombinant Unknown Completed [facility] Pneumococcal 13 Conjugate, PCV13 (Prevnar 13) Unknown Completed [facility] Pneumococcal Polysaccharide, PPSV23 (PNEUMOVAX) Unknown Completed [facility] Influenza High Dose Unknown Completed [facility] Influenza High Dose Quad Unknown Completed [facility] Zoster Vaccine Recombinant Unknown Completed [facility] Influenza Virus Vaccine Unknown Completed [facility] Influenza Virus Vaccine Unknown Completed [facility] Pneumococcal 13 Conjugate, PCV13 (Prevnar 13) Unknown Completed [facility] Pneumococcal Polysaccharide, PPSV23 (PNEUMOVAX) Unknown Completed [facility] Influenza High Dose Unknown Completed [facility] Influenza High Dose Quad Unknown Completed [facility] Zoster Vaccine Recombinant Unknown Completed [facility] Vital Signs Vital Name Observation Time Observation Value Comments S david Body height 2024-02-16 18:05:00 160 cm [facility] Body weight 2024-02-16 18:05:00 58.968 kg [facility] BMI 2024-02-16 18:05:00 23.03 kg/m2 [facility] Height 2023-12-05 14:57:00 162.56 CM Weight 2023-12-05 14:57:00 70 KG Height 2023-12-05 14:57:00 162.56 CM Weight 2023-12-05 14:57:00 70 KG Procedures Procedure Date / Time Performed Performing Clinician Source FREE T4 2019-06-28 16:19:00 Damari Gonsalez [facility] THYROID STIMULATING HORMONE 2019-06-28 16:19:00 Madelyn Gonsalez [facility] COMP. METABOLIC PANEL (13814) 2019-06-28 16:19:00 Madelyn Gonsalez [facility] CBC WITH DIFFERENTIAL 2019-06-28 16:19:00 Madelyn Kent [facility] AGREEMENTS AUTHORIZATIONS AND IRREVOCABLE ASSIGNMENTS (FORM 2001) 2019-06-28 05:01:00 Doctor Unassigned, Deforest [facility] Encounters Start Date/Time End Date/Time Encounter Type Admission Type Attending Clinicians Care Facility Care Department Encounter ID Source 2015-02-10 00:00:00 2024-12-01 04:29:28 Orders Only Yuki Mackenzie Cynthia A [facility] 1..840.114 350.1.13.10 4.2.7.2.686 [id number] [facility] 2024-02-16 13:09:14 2024-02-16 23:59:00 Hospital Encounter [facility] [id number] 350.1.13.10 4.2.7.2.686 [id number] [facility] 2024-02-16 13:00:00 2024-02-16 13:22:26 Outpatient R MALCOLM ECHEVERRIA CRAIG [facility] [id number] [facility] 2024-02-16 13:00:00 2024-02-16 13:22:26 Office Visit Malcolm [facility] [id number] 350.1.13.10 4.2.7.2.686 [id number] [facility] 2024-01-24 00:00:00 2024-01-24 00:00:00 Telephone Malcolm Echeverria [facility] 1..840.114 350.1.13.10 4.2.7.2.686 [id number] [facility] 2024-01-20 13:58:00 2024-01-20 23:59:00 Hospital Encounter [facility] 1..840.114 350.1.13.10 4.2.7.2.686 [id number] [facility] 2024-01-20 00:00:00 2024-01-20 23:59:00 [facility] [id number] [facility] 2024-01-19 09:26:00 2024-01-19 23:59:00 Hospital Encounter [facility] 1..840.114 350.1.13.10 4.2.7.2.686 [id number] [facility] 2024-01-19 00:00:00 2024-01-19 23:59:00 [facility] [id number] [facility] 2023-12-05 14:37:00 2023-12-05 18:45:00 Emergency E ARTIE ALVAREZ [facility] [id number] [facility] 2023-12-05 14:37:00 2023-12-05 14:37:00 Emergency E [facility] [id number] [facility] 2023-11-30 00:00:00 2023-11-30 00:00:00 Outpatient GC_SEFP_Riv era_A PRIV PRIV [id number] [facility] 2023-11-08 00:00:00 2023-11-08 00:00:00 Outpatient GC_SEFP_Riv era_A PRIV PRIV [id number] [facility] 2021-08-27 00:00:00 2021-08-27 00:00:00 Madelyn Ortiz [facility] 1.2.840.114 350.1.13.10 4.2.7.2.686 [id number] [facility] 2021-03-03 00:00:00 2021-03-03 00:00:00 Refill Madelyn Gonsalez [facility] 1.2.840.114 350.1.13.10 4.2.7.2.686 [id number] [facility] 2020-09-22 08:57:07 2020-09-23 08:49:12 Telemedici ne Visit GonsalezDonnaMadelyn A [facility] Az[facility] Building 1.2.840.114 350.1.13.10 4.2.7.2.686 [id number] [facility] 2020-09-22 15:40:00 2020-09-22 15:40:00 Outpatient R MADELYN GONSALEZ [facility] [id number] [facility] 2020-09-15 00:00:00 2020-09-15 00:00:00 Refill Madelyn Gonsalez Katerina [facility] 1.2.840.114 350.1.13.10 4.2.7.2.686 [id number] [facility] 2020-08-26 15:20:00 2020-08-26 15:20:00 Outpatient R MADELYN GONSALEZ [facility] [id number] [facility] 2020-08-18 16:35:00 2020-08-18 16:35:00 Outpatient R MADELYN GONSALEZ [facility] [id number] [facility] 2020-08-14 13:40:00 2020-08-14 13:40:00 Outpatient R MADELYN GONSALEZ [facility] [id number] [facility] 2020-06-20 00:00:00 2020-06-20 00:00:00 Refill Madelyn Gonsalez [facility] Building 1.2.840.114 350.1.13.10 4.2.7.2.686 [id number] [facility] 2020-02-12 07:45:11 2020-02-12 14:16:57 Telemedici ne Visit Madelyn Gonsalez [facility] Building 1.2840.114 350.1.13.10 4.2.7.2.686 [id number] [facility] 2020-02-12 13:40:00 2020-02-12 13:40:00 Outpatient R MADELYN GONSALEZ [facility] [id number] [facility] 2019-06-28 11:14:55 2019-07-02 12:48:06 Back Up Machine Operator Visit 2, Adc Lab Madelyn Gonsalez [facility] 1.2.840.114 350.1.13.10 4.2.7.2.686 [id number] [facility] 2019-07-02 00:00:00 2019-07-02 00:00:00 Refill Madelyn Gonsalez [facility] 1.2.840.114 350.1.13.10 4.2.7.2.686 [id number] [facility] 2019-06-28 00:00:00 2019-06-28 00:00:00 Orders Only Doctor Unassigned, Deforest [facility] 1.2840.114 350.1.13.10 4.2.7.2.686 [id number] [facility] 2019-06-20 00:00:00 2019-06-20 00:00:00 Refill Madelyn Gonsalez [facility] 1.2.840.114 350.1.13.10 4.2.7.2.686 [id number] [facility] 2019-06-19 00:00:00 2019-06-19 00:00:00 Refill Madelyn Gonsalez [facility] Otto Hoffman [facility] 1.2.840.114 350.1.13.10 4.2.7.2.686 [id number] [facility] Results Test Description Test Time Test Comments Results Result Co mments Source AMMONIA [id number] 17:34:00* Test Item Value Reference Range Interpretation Comme nts AMMONIA (test code = 54A) <10 umol/L 11-32 L DRUGS OF [id number] 17:27:00* Test Item Value Reference Range Interpretation [...] the FDA and the [employer] (CAP) are more stringent than those required for this test. Therefore, the result should be interpreted with caution and close attention to other clinical and epidemiological data LIVER [id number] 16:05:00* Test Item Value Reference Range Interpretation [...] code = 31A) 9 IU/L 10-49 L [id number] 15:57:00* Test Item Value Reference Range Interpretation Comme nts ACETAMINPH (test code = 94M) <0.2 mg/dL 1.2-2.5 L ALCOHOL BLOOD (ETOH)2023-12-05 15:57:00* Test Item Value Reference Range Interpretation Comme nts ETOH (test code = HALC) ETHANOL * The result is to be used only for medical purposes ALCOHOL (test code = 56A) <10 mg/dL <=10 CT HEAD W/O [id number] 15:55:43 [facility] 1940 Sex: FExam: [...] by: Arik Cantu MD 12/05/2023 03:55 PM [facility] [id number] METABOLIC [id number] 15:50:00* Test Item Value Reference Range Interpretation [...] (test code = 31A) 12 IU/L 10-49 [id number] 15:49:00* Test Item Value Reference Range Interpretation [...] = MDIFF) NO XR CHEST 1 VIEW [id number] 15:11:49 [facility] 1940 Sex: FCHEST, SINGLE VIEWLOCATION [id number]: Confusion.A single view of the chest was [...] by: Osmany Valdez MD 12/05/2023 03:11 PM [facility] [id number] STIMULATING [id number] 17:57:00* Test Item Value Reference Range Interpretation Comme nts TSH (test code = 7904071593) See_Comment [Automated MyEveTab[employer] v2tel] The system which generated this result transmitted reference range: 0.45 - 4.70 mIU/L. The reference range was not used to interpret this result as normal/abnormal. Lab Interpretation (test code = 86390-5) [facility] [id number] 17:57:00 * Test Item Value Reference Range Interpretation Comme nts TSH (test code = 5994125679) See_Comment [Automated [employer] v2tel] The system which generated this result transmitted reference range: 0.45 - 4.70 mIU/L. The reference range was not used to interpret this result as normal/abnormal. Lab Interpretation (test code = 56447-2) Normal [facility] [id number] 17:43:00* Test Item Value Reference Range Interpretation Comme nts FREE T4 (test code = 5856128519) 1.32 ng/dL 0.78-2.2 Lab Interpretation (test cod e = 91521-7) Normal [facility] [id number] 17:43:00* Test Item Value Reference Range Interpretation Comme nts FREE T4 (test code = 2976126412) 1.32 ng/dL 0.78-2.2 Lab Interpretation (test cod e = 41094-7) [id number][facility]2019-[facility]-28 17:29:00* Test Item Value Reference Range Interpretation Comme nts NA (test code = 6835760947) 143 mmol/L 135-145 K (test code = 9063537397) 4.3 mmol/L 3.5-5 CL (test code = 3002984624) 110 mmol/L 98-108 H CO2 TOTAL (test code = 0275931843) 27 mmol/L 23-31 AGAP (test code = 3187015872) 2-16 BUN (test code = 3175492975) 17 mg/dL 7-23 GLUCOSE (test code = 2957139028) 98 mg/dL 70-110 CREATININE (test code = 6820789470) 0.87 mg/dL 0.5-1.04 TOTAL BILI (test code = 1518351936) 0.4 mg/dL 0.1-1.1 CALCIUM (test code = 9945049324) 9.9 mg/dL 8.6-10.6 T PROTEIN (test code = 7460313515) 7.0 g/dL 6.3-8.2 ALBUMIN (test code = 2477714558) 4.3 g/dL 3.5-5 ALK PHOS (test code = 2850735396) 60 U/L 34-122 ALT(SGPT) (test code = 0003423138) 17 U/L 9-51 AST(SGOT) (test code = 0781097130) 24 U/L 13-40 eGFR Calculation (Non-) (test code = 9894446707) mL/min/1.73m2 eGFR Calculation () (test code = 5124045045) mL/min/1.73m2 AALIYAH (test code = AALIYAH) Association [...] imaging tests). Lab Interpretation (test code = 47499-9) Abnormal [facility]. METABOLIC PANEL ([id number])2019-06-28 17:29:00* Test Item Value Reference Range Interpretation Comme nts NA (test code = 0421615153) 143 mmol/L 135-145 K (test code = 1071281483) 4.3 mmol/L 3.5-5 CL (test code = 0281972812) 110 mmol/L 98-108 H CO2 TOTAL (test code = 0578473866) 27 mmol/L 23-31 AGAP (test code = 7234135913) 2-16 BUN (test code = 7437050964) 17 mg/dL 7-23 GLUCOSE (test code = 0756905953) 98 mg/dL 70-110 CREATININE (test code = 9757624845) 0.87 mg/dL 0.5-1.04 TOTAL BILI (test code = 2491432405) 0.4 mg/dL 0.1-1.1 CALCIUM (test code = 5440651274) 9.9 mg/dL 8.6-10.6 T PROTEIN (test code = 8863609922) 7.0 g/dL 6.3-8.2 ALBUMIN (test code = 4658042772) 4.3 g/dL 3.5-5 ALK PHOS (test code = 4452766510) 60 U/L 34-122 ALT(SGPT) (test code = 0398370206) 17 U/L 9-51 AST(SGOT) (test code = 1805782365) 24 U/L 13-40 eGFR Calculation (Non-) (test code = 2229473926) mL/min/1.73m2 eGFR Calculation () (test code = 8180876643) mL/min/1.73m2 AALIYAH (test code = AALIYAH) Association [...] imaging tests). Lab Interpretation (test code = 56441-0) Abnormal [facility] WITH [id number] 17:18:00* Test Item Value Reference Range Interpretation Comme nts WBC (test code = 6690-2) See_Comment [Automated INgrooves] The system which generated this result transmitted reference range: 4.30 - 11.10 10*3/?L. The reference range was not used to interpret this result as normal/abnormal. RBC (test code = 789-8) See_Comment L [Automated INgrooves] The system which generated this result transmitted [...] g/dL 31.6-35.1 L RDW-SD (test code = 41535-5) 46.6 fL 39-49.9 RDW-CV (test code = 788-0) 12.5 % 12-15.5 PLT (test code = 777-3) See_Comment [Automated messa ge] The system which generated this result transmitted reference range: 166 - 358 10*3/?L. The reference range was not used to interpret this result as normal/abnormal. MPV (test code = 10380-2) 10.8 fL 9.5-12.9 NRBC/100 WBC (test code = 7231596025) See_Comment [Automated [employer] ssage] The system which generated this result transmitted reference range: 0.0 - 10.0 /100 WBCs. The reference range was not used to interpret this result as normal/abnormal. NRBC x10^3 (test code = 3335432679) <0.01 See_Comment [Automated messa ge] The system which generated this result transmitted reference range: 10*3/?L. The reference range was not used to interpret this result as normal/abnormal. GRAN MAT (NEUT) % (test code = 770-8) 43.3 % IMM GRAN % (test code = 1176334139) 0.20 % LYMPH % (test code = 736-9) 44.8 % MONO % (test code = 5905-5) 7.3 % EOS % (test code = 713-8) 3.4 % BASO % (test code = 706-2) 1.0 % GRAN MAT x10^3(ANC) (test code = 4558386437) 2.27 10*3/uL 1.88-7.09 IMM GRAN x10^3 (test code = 2560676909) <0.03 0-0.06 LYMPH x10^3 (test code = 731-0) 2.35 10*3/uL 1.32-3.29 MONO x10^3 (test code = 742-7) 0.38 10*3/uL 0.33-0.92 EOS x10^3 (test code = 711-2) 0.18 10*3/uL 0.03-0.39 BASO x10^3 (test code = 704-7) 0.05 10*3/uL 0.01-0.07 Lab Interpretation (test code = 98626-2) Abnormal [facility] WITH [id number] 17:18:00* Test Item Value Reference Range Interpretation [...] g/dL 31.6-35.1 L RDW-SD (test code = 49042-1) 46.6 fL 39-49.9 RDW-CV (test code = 788-0) 12.5 % 12-15.5 PLT (test code = 777-3) See_Comment [Automated messa ge] The system which generated this result transmitted reference range: 166 - 358 10*3/?L. The reference range was not used to interpret this result as normal/abnormal. MPV (test code = 39684-7) 10.8 fL 9.5-12.9 NRBC/100 WBC (test code = 6435299161) See_Comment [Automated [employer] ssage] The system which generated this result transmitted reference range: 0.0 - 10.0 /100 WBCs. The reference range was not used to interpret this result as normal/abnormal. NRBC x10^3 (test code = 7841835727) <0.01 See_Comment [Automated messa ge] The system which generated this result transmitted reference range: 10*3/?L. The reference range was not used to interpret this result as normal/abnormal. GRAN MAT (NEUT) % (test code = 770-8) 43.3 % IMM GRAN % (test code = 5366627675) 0.20 % LYMPH % (test code = 736-9) 44.8 % MONO % (test code = 5905-5) 7.3 % EOS % (test code = 713-8) 3.4 % BASO % (test code = 706-2) 1.0 % GRAN MAT x10^3(ANC) (test code = 2456083920) 2.27 10*3/uL 1.88-7.09 IMM GRAN x10^3 (test code = 7644290954) <0.03 0-0.06 LYMPH x10^3 (test code = 731-0) 2.35 10*3/uL 1.32-3.29 MONO x10^3 (test code = 742-7) 0.38 10*3/uL 0.33-0.92 EOS x10^3 (test code = 711-2) 0.18 10*3/uL 0.03-0.39 BASO x10^3 (test code = 704-7) 0.05 10*3/uL 0.01-0.07 Lab Interpretation (test code = 43148-6) Abnormal [facility] Notes Date/Time Note Provider Source 2024-01-24 14:33:10 Rad[facility] [employer] [facility] providers basket for review Jaspreet Ta [facility] 2024-01-24 13:49:02 [facility] [employer]"
[2024-12-16] MEDS ORDERED: PANTOPRAZOLE 40 MG INJ ONE (09:17)
[2024-12-16] MEDS ORDERED: NA CHLORIDE 0.9% 1,000 ML ONE (09:17)
[2024-12-16 09:44] LABS: Absolute Basophils 0.1 K/uL (0-0.5); Absolute Lymphocytes (CBC) 0.9 K/uL (0.7-4.9); Absolute Monocytes 0.4 K/uL (0.1-1.3); Absolute Neutrophil 10.2 K/uL (1.8-8.0); Basophils % 0.5 % (0-1.3); Hematocrit 41.9 % (36.0-45.0); Hemoglobin 13.7 g/dL (12.0-15.0); Lymphocytes % 7.4 % (15.3-44.8); MCH 30.6 pg (27.0-35.0); MCHC 32.6 g/dL (32.0-36.0); MCV 93.8 fL (80-100); MPV 8.7 fL (7.6-11.3); Monocytes % 3.3 % (3.3-12.3); Neutrophils % 88.8 % (41.7-73.7); Platelets 351 thou/uL (152-406); RBC Red Blood Cell Count 4.46 M/uL (3.86-4.86); Red Cell Distribution Width 13.6 % (12.1-15.2)
[2024-12-16 09:46] LABS: PT Prothrombin Time 11.3 SECONDS (10.0-13.0); PTT, Activated Partial Thromb 26.7 SECONDS (24.3-36.9); Protime INR 0.99
[2024-12-16 10:02] LABS: AST/SGOT 13 U/L (15-37); Albumin 3.3 g/dL (3.4-5.0); Albumin/Globulin Ratio 0.7 (1.1-1.8); Alkaline Phosphatase 84 U/L (45-117); Anion Gap 11.4 mEq/L (5.0-15.0); BUN Blood Urea Nitrogen 26 mg/dL (7-18); Bicarbonate 28 mEq/L (21-32); Bilirubin Total 0.4 mg/dL (0.2-1.0); Globulin 4.7 g/dL (2.3-3.5); Glomerular Filtration Rate 52 ml/min (=/>90); Glucose Level 159 mg/dL (74-106); Lipase 20 U/L (13-75); Potassium 3.4 mEq/L (3.5-5.1); Sodium Level 138 mEq/L (136-145); Troponin High Sensitivity 18.5 pg/mL (<58.9)
[2024-12-16 10:06] LABS: ALT/SGPT < 14 U/L (13-56)
--- NOTE | 2024-12-16 10:35 | RAD REPORT ---
EXAMINATION: CT ABDOMEN AND PELVIS WITH CONTRAST CLINICAL INDICATION: hematemesis TECHNIQUE: CT abdomen and pelvis was performed, after the administration of IV contrast, as per [facility] protocol. Axial, sagittal and coronal reconstructions were obtained. One or more of the following dose reduction techniques were used: Automated exposure control, adjustment of the mA and k V according to patient size, and iterative reconstruction. Unless otherwise specified, incidental findings do not require dedicated imaging follow-up. COMPARISON: 12/06/2023 FINDINGS: LOWER CHEST: Linear atelectasis is seen in both lung bases. Small hiatal hernia seen with fluid prese nt along the right aspect of the hernia sac. LIVER: Mild fatty liver is present. No focal lesion or biliary dilatation is seen. Grossly unremark able gallbladder. SPLEEN: Normal size. No focal lesion. PANCREAS: No mass, ductal dilation, or kenrick-pancreatic fluid. ADRENALS: Normal; no mass. KIDNEYS: Normal size and contour. No hydronephrosis. Multiple cysts are present in both kidneys, larg est superiorly measuring 5.4 cm. GASTROINTESTINAL TRACT: No evidence of free air, significant intra-abdominal free fluid, bowel obstru ction or abscess. There is moderate diverticulosis coli of the sigmoid colon without diverticulitis. APPENDIX: Normal appendix. LYMPH NODES: No lymphadenopathy. MUSCULOSKELETAL: No acute or suspicious osseous abnormality. ADDITIONAL FINDINGS: Left total hip arthroplasty. IMPRESSION: No acute or concerning abnormalities seen in the abdomen or pelvis. Moderate fluid surrounds a small hiatal hernia, upper endoscopy may be of value for further workup.
[2024-12-16 11:32] LABS: Blood Morphology Comment NOT SEEN (NOT SEEN); Platelet Estimate ADEQ; White Blood Cell Scan OK (OK)
[2024-12-16] MEDS ORDERED: FAMOTIDINE 20 MG/2 ML VIAL IV ONE (11:36)
--- NOTE | 2024-12-16 11:38 | ER ---
Nurse's Notes [facility] [place] [place] [facility] Name: Laura Meléndez Age: 84 yrs Sex: Female : 1940 Arrival Date: 12/16/2024 Time: 08:37 Bed 8 Private MD: Diagnosis: Hematemesis Presentation: 12/16 08:42 Chief complaint: EMS states: Pt was found by [facility] staff with coffee ground aa5 emesis on her clothing this morning, [facility] also reported 1 episode of diarrhea yesterday. 08:42 Coronavirus screen: vomiting. Ebola Screen: Patient denies travel to an Ebola-affected [facility] area in the 21 days before illness onset. Initial Sepsis Screen: Does the patient meet any 2 criteria? HR > 90 bpm. Does the patient have a suspected source of infection? No. Patient's initial sepsis screen is negative. Risk Assessment: Do you want to hurt yourself or someone else? Unable to obtain. Onset of symptoms was December 16, 2024. Transition of care: patient was received from another setting of care (long-term care facility), [facility]. 08:42 Acuity: PAKRER 3 aa5 08:42 Method Of Arrival: EMS: [facility] aa5 08:42 Care prior to arrival: Glucose check: 160. aa5 Historical: - Allergies: 08:50 No Known Allergies; aa5 - PMHx: 08:50 Alzheimer's disease; Anemia; Anxiety; Dementia; Hypertensive disorder; Hypothyroidism; aa5 Schizophrenia; Depressive disorder; Insomnia; bradycardia; Iron Deficiency Anemia; History of Falls; - PSHx: 08:50 Left artificial hip joint; aa5 - Immunization history:: Adult Immunizations unknown. - Infectious Disease History:: unknown . - Social history:: Smoking status: unknown. - Family history:: not pertinent. Screenin:[facility] ED Fall Risk Assessment (Adult) History of falling in the last 3 months, aa5 including since admission Yes- fall prone (multiple falls) (3 pts) Confusion or Disorientation Yes (5 pts) Intoxicated or Sedated Impaired Gait Mobility Assist Device Used Altered Elimination Score/Fall Risk Level 3 or more points = High Risk Oriented to surroundings, Maintained a safe environment, Educated pt \T\ family on fall prevention, incl call for assistance when getting out of bed, Assessed \T\ reinforced patient's understanding of fall precautions. Abuse screen: No signs of abuse noted. Nutritional screening: No deficits noted. Tuberculosis screening: No symptoms or risk factors identified. Assessment: 08:42 General: Appears comfortable, Behavior is calm, cooperative. Pain: Unable to use pain aa5 scale. Patient is disoriented. Does not appear to understand pain scale. FLACC scale score is 0 out of 10. Neuro: Level of Consciousness is awake, confused, Oriented to none. Cardiovascular: Heart tones S1 S2 present Rhythm is regular. Respiratory: Airway is patent Respiratory effort is even, unlabored, Respiratory pattern is regular, symmetrical. GI: Abdomen is round Bowel sounds present X 4 quads. Abd is soft and non tender X 4 quads. EMS reports vomited coffee ground emesis at [facility]. : No signs and/or symptoms were reported regarding the genitourinary system. EENT: No signs and/or symptoms were reported regarding the EENT system. Derm: Skin is pink, warm \T\ dry. Musculoskeletal: Pt is non-ambulatory at [facility]. 09:38 Reassessment: Pt now resting in bed with eyes closed. Pt's family at bedside.. aa5 11:30 Reassessment: Pt resting in bed with eyes closed, respirations are even and unlabored, aa5 skin is pink/warm/dry. . 11:30 Reassessment: Pt's family remains at bedside. notified pt's family of need for aa5 admission, awaiting admission orders. . 13:10 Reassessment:. General: Appears comfortable, Behavior is calm, cooperative. Neuro: aa5 Level of Consciousness is awake, confused, Oriented to person. Respiratory: Airway is patent Respiratory effort is even, unlabored, Respiratory pattern is regular, symmetrical. Derm: Skin is pink, warm \T\ dry. 13:10 : Brief is dry. aa5 Vital Signs: 08:42 BP 147 / 100; Pulse 92; Resp 18 S; Temp 98.2(A); Pulse Ox 97% on R/A; aa5 09:34 BP 140 / 93; Pulse 91; Resp 23; Pulse Ox 96% on R/A; Pain 0/10; le1 11:30 BP 138 / 74; Pulse 63; Resp 16 S; Pulse Ox 97% on R/A; aa5 09:34 Pain Scale: Adult le1 ED Course: 08:42 Patient arrived in ED. aa5 08:42 Titi Ahmadi MD is Attending Physician. rt 08:42 Arm band placed on Patient placed in an exam room, on a stretcher. aa5 08:42 Patient has correct armband on for positive identification. Placed in gown. Bed in low aa5 position. Call light in reach. Side rails up X2. Client placed on continuous cardiac and pulse oximetry monitoring. NIBP monitoring applied. environmental monitoring specialist on. Pulse ox on. NIBP on. 08:43 Talisha Martines, RN is Primary Nurse. aa5 08:49 Triage completed. aa5 08:55 No provider procedures requiring assistance completed. aa5 09:33 Initial lab(s) drawn, by me, sent to lab. Inserted saline lock: 20 gauge in right le1 antecubital area, using aseptic technique. Blood collected. Flushed with 10 mL NS. 09:38 EKG done, by ED staff, reviewed by Titi Ahmadi MD. aa5 10:07 T\T\S collected, blood band applied to patient. aa5 10:22 CT Abd/Pelvis - IV Contrast Only In Process Unspecified. EDMS 11:37 Speedy Campbell MD is Hospitalizing Provider. rt 13:12 Patient admitted, IV remains in place. aa5 Administered Medications: 09:32 Drug: NS 0.9% IV 1000 ml IV at 1 bolus Per protocol; to be given as a bolus over 60 le1 minutes Route: IV; Rate: 1 bolus; Site: right antecubital; 10:32 Follow up: IV Status: Completed infusion; IV Intake: 1000ml aa5 09:32 Drug: Pantoprazole IVP 80 mg IVP once Route: IVP; Site: right antecubital; le1 09:33 Follow up: Response: No adverse reaction le1 11:37 Drug: Famotidine IVP 20 mg IVP once; dilute with 10 mL 0.9% NaCl; give over 2 minutes le1 Route: IVP; Site: right antecubital; 12:00 Follow up: Response: No adverse reaction aa5 Medication: 08:55 VIS not applicable for this client. aa5 Intake: 10:32 IV: 1000ml; Total: 1000ml. aa5 Outcome: 11:37 Decision to Hospitalize by Provider. rt 13:12 Admitted to Med/surg accompanied by tech, via stretcher, with chart, aa5 13:12 Condition: stable 13:12 Instructed on the need for admit, given to family Demonstrated understanding of instructions, 13:14 Patient left the ED. aa5 Signatures: Dispatcher [employer] Talisha Tapia, RN RN aa5 Titi Ahmadi MD MD rt English, LaKendric RN RN le1
--- NOTE | 2024-12-16 11:38 | EDPHYS ---
Physician Documentation [facility] Name: Laura Meléndez Age: 84 yrs Sex: Female : 1940 Arrival Date: 12/16/2024 Time: 08:37 Bed 8 Private MD: ED Physician Titi Ahmadi HPI: 12/16 09:31 This 84 yrs old Female presents to ER via EMS with complaints of Vomiting. rt 09:31 History limited due to patient with advanced dementia. Patient reportedly had a rt coffee-ground emesis at the intermediate today. No other reported complaints. Symptoms are moderate in severity, no other aggravating or alleviating factors.. Historical: - Allergies: 08:50 No Known Allergies; aa5 - PMHx: 08:50 Alzheimer's disease; Anemia; Anxiety; Dementia; Hypertensive disorder; Hypothyroidism; aa5 Schizophrenia; Depressive disorder; Insomnia; bradycardia; Iron Deficiency Anemia; History of Falls; - PSHx: 08:50 Left artificial hip joint; aa5 - Immunization history:: Adult Immunizations unknown. - Infectious Disease History:: unknown . - Social history:: Smoking status: unknown. - Family history:: not pertinent. ROS: 09:31 Unable to obtain ROS due to baseline dementia, rt Exam: 09:31 Chest/axilla: Normal chest wall appearance and motion. Nontender with no deformity. rt No lesions are appreciated. Cardiovascular: Regular rate and rhythm with a normal S1 and S2. No gallops, murmurs, or rubs. Normal PMI, no JVD. No pulse deficits. Respiratory: Lungs have equal breath sounds bilaterally, clear to auscultation and percussion. No rales, rhonchi or wheezes noted. No increased work of breathing, no retractions or nasal flaring. Abdomen/GI: Soft, non-tender, with normal bowel sounds. No distension or tympany. No guarding or rebound. No evidence of tenderness throughout. 11:35 ECG was reviewed by the Attending Physician. rt Vital Signs: 08:42 BP 147 / 100; Pulse 92; Resp 18 S; Temp 98.2(A); Pulse Ox 97% on R/A; aa5 09:34 BP 140 / 93; Pulse 91; Resp 23; Pulse Ox 96% on R/A; Pain 0/10; le1 11:30 BP 138 / 74; Pulse 63; Resp 16 S; Pulse Ox 97% on R/A; aa5 09:34 Pain Scale: Adult le1 MDM: 08:43 Medical Screening Exam initiated rt 11:35 Differential diagnosis: Hematemesis, nausea, vomiting. Data reviewed: vital signs, rt nurses notes, lab test result(s), EKG, radiologic studies. Management of patient was discussed with the following: Care Coordinator: Discussed with Dr. Valdez, will consult on patient, will admit to the hospitalist. I considered the following discharge prescriptions or medication management in the emergency department Medications were administered in the Emergency Department. See MAR. Independent interpretation of the following test(s) in the Emergency Department CT Scan: My interpretation is No bowel obstruction seen on interpretation of CT scan images. Care significantly affected by the following chronic conditions: Atrial fibrillation. Counseling: I had a detailed discussion with the patient and/or guardian regarding the historical points, exam findings, and any diagnostic results supporting the discharge/admit diagnosis, lab results, radiology results, the need for further work-up and treatment in the hospital. Response to treatment: the patient's symptoms have mildly improved after treatment. 12/16 08:43 Order name: CBC with Diff; Complete Time: 11:33 rt 12/16 08:43 Order name: CMP; Complete Time: 10:09 rt 12/16 08:43 Order name: Lipase; Complete Time: 10:09 rt 12/16 08:43 Order name: PT-INR; Complete Time: 10:09 rt 12/16 08:43 Order name: Ptt, Activated; Complete Time: 10:09 rt 12/16 08:43 Order name: Type And Screen; Complete Time: 11:21 rt 12/16 08:44 Order name: Troponin High Sensitivity; Complete Time: 10:09 rt 12/16 11:17 Order name: ABO/RH no charge; Complete Time: 11:21 EDMS 12/16 11:32 Order name: CBC Smear Scan; Complete Time: 11:33 EDMS 12/16 08:43 Order name: CT Abd/Pelvis - IV Contrast Only; Complete Time: 10:36 rt 12/16 08:43 Order name: IV Saline Lock; Complete Time: 09:26 rt 12/16 08:43 Order name: Labs collected and sent; Complete Time: 09:26 rt 12/16 08:44 Order name: EKG - Nurse/Tech; Complete Time: 09:43 rt 03 09:54 Order name: Flores. Order: blood bank recollect pls remove old ban and re band; Complete sp Time: 10:14 EC:35 Rate is 89 beats/min. Rhythm is regular, Normal Sinus Rhythm with No ectopy. QRS [place] rt is Normal. NE interval is normal. QRS interval is normal. QT interval is normal. No Q waves. Administered Medications: 09:32 Drug: NS 0.9% IV 1000 ml IV at 1 bolus Per protocol; to be given as a bolus over 60 le1 minutes Route: IV; Rate: 1 bolus; Site: right antecubital; 10:32 Follow up: IV Status: Completed infusion; IV Intake: 1000ml aa5 09:32 Drug: Pantoprazole IVP 80 mg IVP once Route: IVP; Site: right antecubital; le1 09:33 Follow up: Response: No adverse reaction le1 11:37 Drug: Famotidine IVP 20 mg IVP once; dilute with 10 mL 0.9% NaCl; give over 2 minutes le1 Route: IVP; Site: right antecubital; 12:00 Follow up: Response: No adverse reaction aa5 Disposition Summary: 12/16/24 11:37 Hospitalization Ordered Notes: Hospitalization Status: Observation rt Provider: Speedy Campbell [facility] Condition: Stable rt Problem: new rt Symptoms: have improved rt Bed/Room Type: Standard rt Room Assignment: 218(12/16/24 12:08) sp Diagnosis - Hematemesis rt Forms: - Medication Reconciliation Form rt - SBAR form rt - Leadership Thank You Letter rt Signatures: Dispatcher [employer] EDMS Leanna Raymond Audri RN RN aa5 Titi Ahmadi MD MD rt Eulalio Copeland RN RN le1 Corrections: (The following items were deleted from the chart) 08:44 08:44 CBC+H.LAB.BRZ ordered. EDMS EDMS 08:44 08:44 COMPREHENSIVE METABOLIC PANEL+C.LAB.BRZ ordered. EDMS EDMS 08:44 08:44 LIPASE+C.LAB.BRZ ordered. EDMS EDMS 08:44 08:44 PROTIME (+INR)+COAG.LAB.BRZ ordered. EDMS EDMS 08:44 08:44 PTT, ACTIVATED+COAG.LAB.BRZ ordered. EDMS EDMS 08:44 08:44 TYPE AND SCREEN+BB.LAB.BRZ ordered. EDMS EDMS 08:44 08:44 Abdomen Pelvis W Con+CT.RAD.BRZ ordered. EDMS EDMS 08:44 08:44 Troponin High Sensitivity+C.LAB.BRZ ordered. EDMS EDMS 12:08 11:37 rt sp
[2024-12-16] MEDS ORDERED: ONDANSETRON 4 MG/2 ML VIAL IV PRN (13:26)
[2024-12-16] MEDS ORDERED: SODIUM CHLORIDE 0.9% 10ML INJ IV PRN (13:26)
[2024-12-16 14:01] VITALS: BMI 25.4
[2024-12-16] MEDS: D5 0.45 NS 1,000 ML IV SCH (14:15)
--- NOTE | 2024-12-16 14:17 | P.HP ---
Certification for Inpatient Patient admitted to: Inpatient With expected LOS: >2 Midnights Patient will require the following post-hospital care: None Practitioner: I am a practitioner with admitting privileges, knowledge of patient current condition, hospital course, and medical plan of care. Services: Services provided to patient in accordance with Admission requirements found in Title 42 Section 412.3 of the Code of Federal Regulations Patient History Date of Service: 12/16/24 Reason for admission: Hematemesis History of Present Illness: 84-year-old female with history of advanced dementia, hypertension, hyperlipidemia, depression, schizophrenia, hypothyroidism, iron deficiency anemia presents to the emergency department with chief complaint of hematemesis. She is a long-term resident and long-term staff reports that she had some coffee-ground emesis this morning x 1. She was evaluated in the emergency department her initial hemoglobin is 13.7, hematocrit 31.9 CT of the abdomen pelvis was performed with IV contrast which showed moderate fluid surrounds a small hiatal hernia, upper endoscopy may be of value for further workup. Of note patient is on Eliquis 2.5 mg twice daily, family reports that she has been on this since her hip surgery around 1 year ago, she has no known history of atrial fibrillation or other indications for anticoagulation. Allergies No Known Allergies Allergy (Verified 01/20/24 02:49) Home Medications: Docusate [Colace Cap*] 100 mg PO BID 12/14/23 Levothyroxine Sodium 25 mcg PO [id number] 12/14/23 Melatonin 6 mg PO BEDTIME 12/14/23 Buspirone HCl [Buspar*] 10 mg PO TID tab 12/15/23 Ferrous Sulfate [Ferrous Sulfate*] 325 mg PO DAILY tab 12/15/23 Fluoxetine HCl [Prozac*] 10 mg PO DAILY cap 12/15/23 Mirtazapine [Remeron*] 15 mg PO BEDTIME tab 12/15/23 lisinopriL [Prinivil*] 10 mg PO DAILY tab 12/15/23 risperiDONE [Risperdal 1 mg tab*] 1 mg PO BEDTIME tab 12/15/23 Apixaban [Eliquis *] 2.5 mg PO BID #36 tab 01/23/24 - Past Medical/Surgical History Has patient received pneumonia vaccine in the past: Yes Diabetic: No -: Schizophrenia -: HTN -: K[place] -: HLD -: Hypothyroidism -: Advanced Dementia -: Depressive disorder -: Insomnia -: [place] -: L hip replacement. Psychosocial/ Personal History: lives in locked unit at [facility]. Just released from [facility], [facility] - Family History Sister -: Hypertension, Diabetes, Cancer Notes: Breast CA - Social History Smoking Status: Former smoker Alcohol use: No CD- Drugs: No Caffeine use: No Place of Residence: [facility] Review of Systems 10-point ROS is otherwise unremarkable Gastrointestinal: Nausea, Vomiting, Other (Hematemesis) Physical Examination - Vital Signs Temperature: 98.2 F Blood Pressure: 138/74 Pulse: 63 Respirations: 16 Pulse Ox (%): 95 - Physical Exam General: Alert, Demented HEENT: Atraumatic Neck: Supple Respiratory: Clear to auscultation bilaterally Cardiovascular: No edema Gastrointestinal: Normal bowel sounds, Soft and benign Musculoskeletal: No contractures - Studies Laboratory Data (last 24 hrs) 12/16/24 12/16/24 12/16/24 09:15 09:15 09:15 WBC 11.50 H Hgb 13.7 Hct 41.9 Plt Count 351 PT 11.3 INR 0.99 APTT 26.7 Sodium 138 Potassium 3.4 L BUN 26 H Creatinine 1.06 H Glucose 159 H Total Bilirubin 0.4 AST 13 L ALT < 14 Alkaline Phosphatase 84 Lipase 20 Assessment and Plan - Plan Assessment: Hematemesis Hiatal hernia Hypertension Hyperlipidemia Hypothyroidism Advanced dementia Depression Schizophrenia Plan: Hematemesis Hiatal hernia General Surgery consulted, plan for endoscopy Hemoglobin/hematocrit normal at this time will repeat this afternoon and trend Continue twice daily PPI No known history of GI bleeds Was on Eliquis 2.5 mg twice daily long-term ever since she had a hip fracture last year Plan to DC Eliquis unless there is no other indication found-family denies any A-fib or history of blood clots that they are aware of Await findings from possible endoscopy Hypertension Hyperlipidemia Hypothyroidism Advanced dementia Depression Schizophrenia Continue home medications when verified and tolerating p.o. DVT PPX: SCD Code status: Full Discharge Plan: Home Plan to discharge in: 48 Hours - Advance Directives Does patient have a Living Will: No Does patient have a Durable POA for Healthcare: Yes - Code Status/Comfort Care Code Status Assessed: Yes (Full code) Critical Care: No Time Spent Managing Pts Care (In Minutes): 65
[2024-12-16] MEDS: MELATONIN 3 MG TABLET PO PRN (21:08)
[2024-12-16] MEDS: PANTOPRAZOLE 40 MG INJ IVP SCH (21:08)
[2024-12-17 04:32] LABS: Absolute Lymphocytes (CBC) 1.7 K/uL (0.7-4.9); Absolute Monocytes 0.8 K/uL (0.1-1.3); Absolute Neutrophil 6.8 K/uL (1.8-8.0); Basophils % 0.5 % (0-1.3); Eosinophils % 0.5 % (0-4.4); Hematocrit 30.1 % (36.0-45.0); Hemoglobin 10.3 g/dL (12.0-15.0); Lymphocytes % 17.8 % (15.3-44.8); MCH 31.8 pg (27.0-35.0); MCHC 34.3 g/dL (32.0-36.0); MCV 92.9 fL (80-100); MPV 8.2 fL (7.6-11.3); Monocytes % 8.2 % (3.3-12.3); Platelets 281 thou/uL (152-406); RBC Red Blood Cell Count 3.24 M/uL (3.86-4.86); Red Cell Distribution Width 13.4 % (12.1-15.2)
[2024-12-17] MEDS: KCL 20 MEQ/100 mL IVPB 20 MEQ/100 ML BAG IV SCH (09:16)
--- NOTE | 2024-12-17 09:37 | P.PN ---
Date of Service: 12/17/24 Subjective: no further reported episodes of emesis. no bloody output. continues with some abdominal discomfort no acute events overnight plan for EGD today ROS: 10 point ROS as noted above, otherwise negative Physical Exam: GEN: awake, confused, dementia CV: Regular rate and rhythm, no edema Pulm: Nonlabored respirations on room air, clear bilaterally ABD: soft, mild tender in epigastrium, nondistended Neuro: Normal speech, normal affect Problem List: Hematemesis Hypertension Hyperlipidemia Hypothyroidism Advanced dementia Depression Schizophrenia Hematemesis on admission, presents from assisted with reported coffee-ground emesis No known history of GI bleeds Was on Eliquis 2.5 mg twice daily at assisted ever since she had a hip fracture last year Plan to DC Eliquis unless there is no other indication. Family denies any hx of A-fib or blood clots that they are aware of Trend H&H. Daily labs. Continue IV protonix BID Continue twice daily PPI Dr. Valdez,General Surgery consulted NPO for tentative EGD today Hypokalemia monitor and replete as needed Hypertension Hyperlipidemia Hypothyroidism Advanced dementia Depression Schizophrenia confirm home meds, restart as appropriate VTE: SCD for now Code: Full Dispo: Back to snf, ~24 hrs Pending EGD, surgical recs Time Spent Managing Pts Care (In Minutes): 55
--- NOTE | 2024-12-17 12:06 | EKG ---
Test Date: 2024-12-16 Test Time: 09:37:17 Bag Patcher: LIDIA MEASUREMENT RESULTS: Intervals: Rate: 89 KS: 162 QRSD: 74 QT: 394 QTc: 479 [place]: P: 51 KS: 162 QRS: 42 T: 28 INTERPRETIVE STATEMENTS: Normal sinus rhythm Nonspecific ST and T wave abnormality Abnormal ECG Compared to ECG 03/21/2024 11:00:02 ST (T wave) deviation now present Sinus bradycardia no longer present Electronically Signed On 12-17-24 12:03:11 APPRENTICE FUNERAL DIRECTOR by Randy Jay
[2024-12-17] MEDS: Ringers Lactate 1,000 ML IV ONE (12:59)
[2024-12-17] MEDS ORDERED: LIDOCAINE 1% MPF 30 ML VIAL ONE (14:01)
[2024-12-17] MEDS ORDERED: propofoL 200 MG/20 ML VIAL IV ONE (14:01)
[2024-12-17] MEDS ORDERED: EPINEPHRINE 1 MG/ML VIAL ONE (14:06)
[2024-12-17 15:46] VITALS: O2SAT 100
[2024-12-17] MEDS: FLUOXETINE 10 MG CAP PO SCH (18:55)
[2024-12-17] MEDS: MORPHINE 4 MG/ML SYR IV PRN (18:55)
[2024-12-17] MEDS: lisinopriL 10 MG TAB PO SCH (18:55)
[2024-12-17] MEDS ORDERED: FLU (Fluarix Triv) TS24-25(6MOS UP)/PF 45 MCG/0.5 ML Syringe IM ONE (19:00)
[2024-12-17] MEDS ORDERED: MELATONIN 3 MG PO SCH (21:00)
[2024-12-17] MEDS: HYDRALAZINE HCL 20 MG/ML VIAL IV PRN (21:08)
[2024-12-17] MEDS: DIVALPROEX NA 125 MG CAP PO SCH (21:12)
[2024-12-17] MEDS: RISPERIDONE 1 MG TABLET PO SCH (21:12)
[2024-12-17] MEDS: MIRTAZAPINE 15 MG TAB PO SCH (21:12)
[2024-12-17] MEDS: MELATONIN 3 MG TABLET PO SCH (21:12)
[2024-12-18 05:05] LABS: Absolute Lymphocytes (CBC) 1.5 K/uL (0.7-4.9); Absolute Monocytes 0.5 K/uL (0.1-1.3); Basophils % 0.3 % (0-1.3); Eosinophils % 0.3 % (0-4.4); Hematocrit 29.5 % (36.0-45.0); Hemoglobin 10.1 g/dL (12.0-15.0); Lymphocytes % 18.2 % (15.3-44.8); MCH 31.8 pg (27.0-35.0); MCHC 34.1 g/dL (32.0-36.0); MCV 93.3 fL (80-100); MPV 8.6 fL (7.6-11.3); Monocytes % 6.6 % (3.3-12.3); Neutrophils % 74.6 % (41.7-73.7); Platelets 244 thou/uL (152-406); RBC Red Blood Cell Count 3.16 M/uL (3.86-4.86); Red Cell Distribution Width 13.5 % (12.1-15.2)
[2024-12-18 05:13] LABS: Anion Gap 8.3 mEq/L (5.0-15.0); Potassium 3.3 mEq/L (3.5-5.1)
[2024-12-18] MEDS: KCL 20 MEQ/100 mL IVPB 20 MEQ/100 ML BAG IV SCH (05:49)
[2024-12-18] MEDS: LEVOTHYROXINE SOD 0.025 MG TAB PO SCH (05:51)
[2024-12-18] MEDS: FERROUS SULFATE 325 MG TAB PO SCH (08:54)
--- NOTE | 2024-12-18 13:15 | P.DS ---
Admission Date: 12/16/24 Discharge Date: 12/18/24 Disposition: TRANSFER TO SENIOR CARE Discharge Condition: FAIR Reason for Admission: Hematemesis Brief History of Present Illness: 84-year-old female with history of advanced dementia, hypertension, hyperlipidemia, depression, schizophrenia, hypothyroidism, iron deficiency anemia presented to the emergency department with chief complaint of hematemesis. She is a care home resident and care home staff reports that she had some coffee-ground emesis. She was evaluated in the emergency department her initial hemoglobin is 13.7, hematocrit 31.9 CT of the abdomen pelvis was performed with IV contrast which showed moderate fluid surrounds a small hiatal hernia, upper endoscopy may be of value for further workup. Of note patient has been on Eliquis 2.5 mg twice daily, family reports that she has been on this since her hip surgery around 1 year ago, she has no known history of atrial fibrillation or thrombosis or other indications for anticoagulation. Hospital Course: Diagnosis Hematemesis Hypertension Hyperlipidemia Hypothyroidism Advanced dementia Depression Schizophrenia Patient admitted to the medical floor and the following medical problems addressed: Hematemesis No known history of GI bleeds Was on Eliquis 2.5 mg twice daily at care home ever since she had a hip fracture last year Family denied any hx of A-fib or blood clots that they are aware of. Patient seen and evaluated by general surgery Dr. Valdez who performed EGD. The patient noted to have esophagitis and gastritis per Dr. Valdez Patient treated with IV protonix BID and transition to oral Protonix 40 mg twice daily on discharge. Patient tolerated full liquid diet after the EGD. Hypokalemia Replaced as needed. Hypertension Hyperlipidemia Hypothyroidism Advanced dementia Depression Schizophrenia Stable. Continued home medications. Vital Signs/Physical Exam: Temp Pulse Resp BP Pulse Ox 97.9 F 71 15 125/56 L 98 12/18/24 12:00 12/18/24 12:00 12/18/24 12:00 12/18/24 12:12/18/24 12:00 General: In no apparent distress, Oriented x1, Other (Awake) HEENT: Mucous membr. moist/pink, Sclerae nonicteric Neck: Supple, JVD not distended Respiratory: Clear to auscultation bilaterally, Normal air movement Cardiovascular: No edema, Regular rate/rhythm, Normal S1 S2 Gastrointestinal: Soft and benign, Non-distended, No tenderness Musculoskeletal: No swelling Integumentary: No cyanosis Neurological: Other (No focal motor deficit.) Laboratory Data at Discharge: WBC 8.00 thou/uL (4.3-10.9) 12/18/24 04:32 Hgb 10.1 g/dL (12.0-15.0) L 12/18/24 04:32 Hct 29.5 % (36.0-45.0) L 12/18/24 04:32 Plt Count 244 thou/uL (152-406) 12/18/24 04:32 PT 11.3 SECONDS (10.0-13.0) 12/16/24 09:15 INR 0.99 12/16/24 09:15 APTT 26.7 SECONDS (24.3-36.9) 12/16/24 09:15 Sodium 137 mEq/L (136-145) 12/18/24 04:32 Potassium 3.3 mEq/L (3.5-5.1) L 12/18/24 04:32 BUN 11 mg/dL (7-18) 12/18/24 04:32 Creatinine 0.83 mg/dL (0.55-1.02) 12/18/24 04:32 Glucose 133 mg/dL (74-106) H 12/18/24 04:32 Total Bilirubin 0.4 mg/dL (0.2-1.0) 12/16/24 09:15 AST 13 U/L (15-37) L 12/16/24 09:15 ALT < 14 U/L (13-56) 12/16/24 09:15 Alkaline Phosphatase 84 U/L (45-117) 12/16/24 09:15 Lipase 20 U/L (13-75) 12/16/24 09:15 Home Medications: Levothyroxine Sodium 25 mcg PO [id number] 12/14/23 Melatonin 6 mg PO BEDTIME 12/14/23 Ferrous Sulfate [Ferrous Sulfate*] 325 mg PO DAILY tab 12/15/23 Fluoxetine HCl [Prozac*] 10 mg PO DAILY cap 12/15/23 Mirtazapine [Remeron*] 15 mg PO BEDTIME tab 12/15/23 lisinopriL [Prinivil*] 10 mg PO DAILY tab 12/15/23 risperiDONE [Risperdal 1 mg tab*] 1 mg PO BEDTIME tab 12/15/23 Divalproex [Depakote Sprinkle*] 2 cap PO BEDTIME 12/16/24 Pantoprazole [Protonix Tab] 40 mg PO BID #60 tab 12/18/24 New Medications: Pantoprazole [Protonix Tab] 40 mg PO BID #60 tab Diet: AHA Activity: Fall precautions Followup: Emma Velasquez MD [Primary Care Provider] - 1 Week Time spent managing pt's care (in minutes): 35
[2024-12-18 16:40] VITALS: BP 143/65; TEMP 97.5
== END 2024-12-18 16:47 | DRG 368 ==
LOC: ER 08:37 → ERHOLD 11:59 → 2ND 12:18
PROVIDERS: ADMIT Hospitalist; ATTEND Internal Medicine
PROC: 0DB78ZX Excision of Stomach, Pylorus, Via Natural or Artificial Opening Endoscopic, Diagnostic (ICD-10-PCS; 2024-12-17)
PROC: 0DB68ZX Excision of Stomach, Via Natural or Artificial Opening Endoscopic, Diagnostic (ICD-10-PCS; 2024-12-17)
PROC: 0DB18ZX Excision of Upper Esophagus, Via Natural or Artificial Opening Endoscopic, Diagnostic (ICD-10-PCS; 2024-12-17)
PROC: 0DB28ZX Excision of Middle Esophagus, Via Natural or Artificial Opening Endoscopic, Diagnostic (ICD-10-PCS; 2024-12-17)
PROC: 0DB38ZX Excision of Lower Esophagus, Via Natural or Artificial Opening Endoscopic, Diagnostic (ICD-10-PCS; 2024-12-17)
PROC: 0DB98ZX Excision of Duodenum, Via Natural or Artificial Opening Endoscopic, Diagnostic (ICD-10-PCS; principal; 2024-12-17 14:45)
DX: K20.91 Esophagitis, unspecified with bleeding (principal); K29.31 Chronic superficial gastritis with bleeding; F02.83 Dementia in other diseases classified elsewhere, unspecified severity, with mood disturbance; I10 Essential (primary) hypertension; G30.9 Alzheimer's disease, unspecified; I86.4 Gastric varices; E78.5 Hyperlipidemia, unspecified; F20.9 Schizophrenia, unspecified; E87.6 Hypokalemia; E03.9 Hypothyroidism, unspecified; K44.9 Diaphragmatic hernia without obstruction or gangrene; R29.6 Repeated falls; Z91.81 History of falling; Z79.01 Long term (current) use of anticoagulants; Z79.890 Hormone replacement therapy; Z96.642 Presence of left artificial hip joint; Z79.899 Other long term (current) drug therapy; Z87.891 Personal history of nicotine dependence
CPT/HCPCS: 36415; 74177; 80048; 80053; 83690; 84484; 85025; 85610; 85730; 86850; 86900; 86901; 88305; 88312; 93005; 96361; 96374; 96375; 99285; J0171; J0360; J2003; J2470; J2704; J3480; J7030; J7120; J7799; Q9967

== ENCOUNTER 2025-07-23 07:10 | Emergency (ER) | payer OTHER ==
--- OUTSIDE RECORDS SUMMARY | 2025-07-23 07:15 | XMS REPORT | Continuity of Care Document ---
Author Name Unknown Address [address] [facility]. [address] [place] [address] 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 Phone BHARATHI BOJORQUEZ Primary Care Physician UnavailJEREMY Wright Attending Clinician Unavailable JEREMY GALVEZ Attending Clinician Unavailable Madelyn Gonsalez MD Attending Clinician [phone] Gurdeep MILES, Yuki Borges Attending Clinician Unavail MALCOLM Sanchez Attending Clinician UnavailMALCOLM Rhodes Attending Clinician UnavailMalcolm Rhodes MD Attending Clinician [phone] Theodore Woods MD Attending Clinician [phone] DR ARTIE ALVAREZ Attending Clinician UnavailDR ARTIE Barr Attending Clinician Unavailab mateusz MARTINEZ_SEFP_Rivera_A Attending Clinician Unavailable Madelyn Gonsalez MD Attending Clinician [phone] MADELYN GONSALEZ Attending Clinician Can iltheo 2, [facility] Attending Clinician Unavailable Doctor Unassigned, [place] Attending Clinician DR ARTIE Lomeli Admitting Clinician UnavailARIK Rojas Admitting Clinician Unavailable GC_SEFP_Rivera_A Admitting Clinician Unavailable Payers Payer Name Policy Type Policy Number Effective Date Expirati on Date Source [employer] MEDICARE [id number] 2022 00:00:00 [facility] [id number] 2023 00:00:00 [employer] (MEDICARE REPLACEMENT/ADVANT AGE - PPO) [id number] Problems Condition Name Condition Details Condition Category Status Onset Date Resolution Date Last Treatment Date Treating Clinician Comments Source Hyperlipid emia Hyperlipid emia Disease Active 10-29 00:00: 00 [facility] Allergic conjunctiv itis, bilateral Allergic conjunctiv itis, bilateral Disease Recurre nce 10-29 00:00: 00 [facility] Other seasonal allergic rhinitis Other seasonal allergic rhinitis Disease Active 10-29 00:00: 00 [facility] Essential hypertensi on Essential hypertensi on Disease Active 10-29 00:00: 00 [facility] Iron deficiency anemia due to chronic blood loss Iron deficiency anemia due to chronic blood loss Disease Active 10-29 00:00: 00 [facility] 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 - 50 beats per minute 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 - 50 beats per minute Disease Active 10-29 00:00: 00 [facility] Fatigue Fatigue Disease Active 10-29 00:00: 00 [facility] Allergies, Adverse Reactions, Alerts Allergy Name Allergy Type Status Severity Reaction(s) Onset Date Inactive Date Treating Clinician Comments Source NO KNOWN ALLERGIE S Drug Class Active [facility] No Known Allergie s DA Active [facility] Social History Social Habit Start Date Stop Date Quantity Comments Source [facility] History of Social function 2024-02-16 00:00:00 2024-02-16 00:00:00 [facility] Alcohol intake 2024-02-16 00:00:00 2024-02-16 00:00:00 Ex-drinker (finding) [facility] Tobacco use and exposure 2020-09-22 00:00:00 2020-09-22 00:00:00 Smokeless tobacco non-user [facility] Cigarettes smoked current (pack per day) - Reported 2020-09-22 00:00:00 2020-09-22 00:00:00 [facility] Cigarette pack-years 2020-09-22 00:00:00 2020-09-22 00:00:00 [facility] Alcoholic beverage intake 2020-09-22 00:00:00 2020-09-22 00:00:00 Ex-drinker (finding) [facility] Tobacco Comment 2020-02-12 00:00:00 2020-02-12 00:00:00 social smoker [facility] Exposure to SARS-CoV-2 (event) 2020-01-12 00:00:00 2020-02-11 11:31:00 Unable to assess [facility] History of tobacco use 1957-10-17 00:00:00 2015-02-11 00:00:00 Cigarette Smoker [facility] Sex assigned at 1940 00:00:00 1940 00:00:00 [facility] Smoking Status Start Date Stop Date Source Ex-smoker 2020-09-22 00:00:00 2020-09-22 00:00:00 [facility] Tobacco smoking consumption unknown [facility] Medications Ordered Medication Name Filled Medication Name Start Date Stop Date Current Medication? Ordering Clinician Indication Dosage Frequency Signature (SIG) Comments Components Source levothyroxi ne 50 mcg tablet 03-04 00:00: 00 Yes [id number] TAKE 1 TABLET BY MOUTH EVERY MORNING. Keep on file. [facility] Cholecalcif mook, Vitamin D3, (VITAMIN D3) 2,000 unit tablet 2019-10 23:55: 44 Yes 2{tbl} Take 2 tablets by mouth daily. [facility] Cholecalcif mook, Vitamin D3, (VITAMIN D3) 2,000 unit tablet 2019-10 17:55: 44 Yes 2{tbl} Take 2 tablets by mouth daily. [facility] losartan 50 mg tablet 2019-10 00:00: 00 Yes [id number] 50mg Take 1 tablet by mouth every morning. [facility] amLODIPine 10 mg tablet 2019-10 00:00: 00 Yes [id number] TAKE 1 TABLET BY MOUTH EVERY NIGHT AT BEDTIME [facility] Cholecalcif mook, Vitamin D3, (VITAMIN D3) 2,000 unit tablet 02-11 18:57: 37 Yes 2{tbl} Take 2 tablets by mouth daily. [facility] levothyroxi ne 50 mcg tablet 02-11 00:00: 00 03-04 00:00 :00 No [id number] TAKE 1 TABLET BY MOUTH EVERY MORNING. Keep on file. [facility] losartan 50 mg tablet 2018-10 00:00: 00 Yes [id number] 50mg Take 1 tablet by mouth every morning. [facility] amLODIPine 10 mg tablet 2018-10 00:00: 00 Yes [id number] TAKE 1 TABLET BY MOUTH EVERY NIGHT AT BEDTIME [facility] amLODIPine 10 mg tablet 07-06 00:00: 00 Yes [id number] TAKE 1 TABLET BY MOUTH EVERY NIGHT AT BEDTIME [facility] losartan 50 mg tablet 07-06 00:00: 00 Yes [id number] 50mg Take 1 tablet by mouth every morning. [facility] LOSARTAN 50 mg tablet 07-03 00:00: 00 07-06 00:00 :00 No 50mg TAKE 1 TABLET BY MOUTH EVERY MORNING [facility] amLODIPine 10 mg tablet 07-03 00:00: 00 07-06 00:00 :00 No [id number] TAKE 1 TABLET BY MOUTH EVERY NIGHT AT BEDTIME [facility] LOSARTAN 50 mg tablet 06-28 00:00: 00 Yes [id number] 50mg TAKE 1 TABLET BY MOUTH EVERY MORNING [facility] AMLODIPINE 10 mg tablet 06-28 00:00: 00 07-02 00:00 :00 No [id number] TAKE 1 TABLET BY MOUTH EVERY NIGHT AT BEDTIME [facility] levothyroxi ne 50 mcg tablet 06-20 00:00: 00 02-11 00:00 :00 No [id number] TAKE 1 TABLET BY MOUTH EVERY MORNING [facility] levothyroxi ne 50 mcg tablet 05-11 00:00: 00 06-20 17:33 :41 No [id number] TAKE 1 TABLET BY MOUTH EVERY MORNING [facility] amLODIPine 10 mg tablet 05-11 00:00: 00 06-20 00:00 :00 No [id number] TAKE 1 TABLET BY MOUTH EVERY NIGHT AT BEDTIME [facility] losartan 50 mg tablet 05-11 00:00: 00 06-20 00:00 :00 No 50mg Take 1 tablet by mouth every morning. [facility] simvastatin 20 mg tablet 11-09 00:00: 00 11-01 00:00 :00 No [id number] TAKE 1 TABLET BY MOUTH EVERY NIGHT AT BEDTIME [facility] AMLODIPINE 10 mg tablet 10-18 00:00: 00 07-16 00:00 :00 No TAKE 1 TABLET BY MOUTH EVERY NIGHT AT BEDTIME [facility] losartan (COZAAR) 50 mg tablet 2015-10 00:00: 00 07-13 00:00 :00 No 50mg Take 1 tablet by mouth daily. [facility] levothyroxi ne (SYNTHROID) 50 mcg tablet 05-13 00:00: 00 05-19 00:00 :00 No TAKE 1 TABLET BY MOUTH EVERY MORNING [facility] methylPREDN ISolone (MEDROL DOSE-PEDRO) 4 mg tablets 06 00:00: 00 10-29 00:00 :00 No [facility] metoprolol succinate XL (TOPROL XL) 100 mg 24 hr tablet 12-03 00:00: 00 10-29 00:00 :00 No [facility] amLODIPine (NORVASC) 10 mg tablet 12-03 00:00: 00 03-02 00:00 :00 No [facility] Immunizations Ordered Immunization Name Filled Immunization Name Date Status Comments Source Influenza High Dose Quad 2020-07-11 00:00:00 Completed [facility] Zoster Vaccine Recombinant 2020-07-11 00:00:00 Completed [facility] Influenza High Dose Quad 2020-07-11 00:00:00 Completed [facility] Zoster Vaccine Recombinant 2020-07-11 00:00:00 Completed [facility] Influenza High Dose Quad 2020-07-11 00:00:00 Completed [facility] Zoster Vaccine Recombinant 2020-07-11 00:00:00 Completed [facility] Influenza Virus Vaccine 2019-07-28 00:00:00 Completed [facility] Influenza Virus Vaccine 2019-07-28 00:00:00 Completed [facility] Influenza Virus Vaccine 2019-07-28 00:00:00 Completed [facility] Influenza Virus Vaccine 2019-07-28 00:00:00 Completed [facility] Influenza Virus Vaccine 2019-07-28 00:00:00 Completed [facility] Influenza Virus Vaccine 2019-07-28 00:00:00 Completed [facility] Influenza High Dose 2018-09-05 00:00:00 Completed [facility] Influenza High Dose 2018-09-05 00:00:00 Completed [facility] Influenza High Dose 2018-09-05 00:00:00 Completed [facility] Influenza High Dose 2018-09-05 00:00:00 Completed [facility] Influenza High Dose 2018-09-05 00:00:00 Completed [facility] Influenza High Dose 2018-09-05 00:00:00 Completed [facility] Influenza High Dose 2018-09-05 00:00:00 Completed [facility] Influenza High Dose 2018-09-05 00:00:00 Completed [facility] Influenza High Dose 2018-09-05 00:00:00 Completed [facility] Influenza High Dose 2018-09-05 00:00:00 Completed [facility] Influenza High Dose 2018-09-05 00:00:00 Completed [facility] Pneumococcal 13 Conjugate, PCV13 (Prevnar 13) 2018-05-11 00:00:00 Completed [facility] Pneumococcal 13 Conjugate, PCV13 (Prevnar 13) 2018-05-11 00:00:00 Completed [facility] Pneumococcal 13 Conjugate, PCV13 (Prevnar 13) 2018-05-11 00:00:00 Completed [facility] Pneumococcal 13 Conjugate, PCV13 (Prevnar 13) 2018-05-11 00:00:00 Completed [facility] Pneumococcal 13 Conjugate, PCV13 (Prevnar 13) 2018-05-11 00:00:00 Completed [facility] Pneumococcal 13 Conjugate, PCV13 (Prevnar 13) 2018-05-11 00:00:00 Completed [facility] Pneumococcal 13 Conjugate, PCV13 (Prevnar 13) 2018-05-11 00:00:00 Completed [facility] Pneumococcal 13 Conjugate, PCV13 (Prevnar 13) 2018-05-11 00:00:00 Completed [facility] Pneumococcal 13 Conjugate, PCV13 (Prevnar 13) 2018-05-11 00:00:00 Completed [facility] Pneumococcal 13 Conjugate, PCV13 (Prevnar 13) 2018-05-11 00:00:00 Completed [facility] Pneumococcal 13 Conjugate, PCV13 (Prevnar 13) 2018-05-11 00:00:00 Completed [facility] Influenza Virus Vaccine 2017-10-05 00:00:00 Completed [facility] Influenza Virus Vaccine 2017-10-05 00:00:00 Completed [facility] Influenza Virus Vaccine 2017-10-05 00:00:00 Completed [facility] Influenza Virus Vaccine 2017-10-05 00:00:00 Completed [facility] Influenza Virus Vaccine 2017-10-05 00:00:00 Completed [facility] Influenza Virus Vaccine 2017-10-05 00:00:00 Completed [facility] Influenza Virus Vaccine 2017-10-05 00:00:00 Completed [facility] Influenza Virus Vaccine 2017-10-05 00:00:00 Completed [facility] Influenza Virus Vaccine 2017-10-05 00:00:00 Completed [facility] Influenza Virus Vaccine 2017-10-05 00:00:00 Completed [facility] Influenza Virus Vaccine 2017-10-05 00:00:00 Completed [facility] Pneumococcal Polysaccharide, PPSV23 (PNEUMOVAX) 2011-05-11 00:00:00 Completed [facility] Pneumococcal Polysaccharide, PPSV23 (PNEUMOVAX) 2011-05-11 00:00:00 Completed [facility] Pneumococcal Polysaccharide, PPSV23 (PNEUMOVAX) 2011-05-11 00:00:00 Completed [facility] Pneumococcal Polysaccharide, PPSV23 (PNEUMOVAX) 2011-05-11 00:00:00 Completed [facility] Pneumococcal Polysaccharide, PPSV23 (PNEUMOVAX) 2011-05-11 00:00:00 Completed [facility] Pneumococcal Polysaccharide, PPSV23 (PNEUMOVAX) 2011-05-11 00:00:00 Completed [facility] Pneumococcal Polysaccharide, PPSV23 (PNEUMOVAX) 2011-05-11 00:00:00 Completed [facility] Pneumococcal Polysaccharide, PPSV23 (PNEUMOVAX) 2011-05-11 00:00:00 Completed [facility] Pneumococcal Polysaccharide, PPSV23 (PNEUMOVAX) 2011-05-11 00:00:00 Completed [facility] Pneumococcal Polysaccharide, PPSV23 (PNEUMOVAX) 2011-05-11 00:00:00 Completed [facility] Pneumococcal Polysaccharide, PPSV23 (PNEUMOVAX) 2011-05-11 00:00:00 Completed [facility] Pneumococcal Polysaccharide, PPSV23 (PNEUMOVAX) 2011-05-11 00:00:00 Completed [facility] Influenza Virus Vaccine Unknown Completed [facility] Pneumococcal 13 Conjugate, PCV13 (Prevnar 13) Unknown Completed [facility] Pneumococcal Polysaccharide, PPSV23 (PNEUMOVAX) Unknown Completed [facility] Influenza High Dose Unknown Completed [facility] Influenza High Dose Quad Unknown Completed [facility] Zoster Vaccine Recombinant Unknown Completed [facility] Influenza Virus Vaccine Unknown Completed [facility] Pneumococcal 13 Conjugate, PCV13 (Prevnar 13) Unknown Completed [facility] Pneumococcal Polysaccharide, PPSV23 (PNEUMOVAX) Unknown Completed [facility] Influenza High Dose Unknown Completed [facility] Influenza High Dose Quad Unknown Completed [facility] Zoster Vaccine Recombinant Unknown Completed [facility] Influenza Virus Vaccine Unknown Completed [facility] Pneumococcal 13 Conjugate, PCV13 (Prevnar 13) Unknown Completed [facility] Pneumococcal Polysaccharide, PPSV23 (PNEUMOVAX) Unknown Completed [facility] Influenza High Dose Unknown Completed [facility] Influenza High Dose Quad Unknown Completed [facility] Zoster Vaccine Recombinant Unknown Completed [facility] Pneumococcal 13 Conjugate, PCV13 (Prevnar 13) Unknown Completed [facility] Pneumococcal Polysaccharide, PPSV23 (PNEUMOVAX) Unknown Completed [facility] Influenza High Dose Unknown Completed [facility] Influenza High Dose Quad Unknown Completed [facility] Zoster Vaccine Recombinant Unknown Completed [facility] Influenza Virus Vaccine Unknown Completed [facility] Influenza Virus Vaccine Unknown Completed [facility] Pneumococcal 13 Conjugate, PCV13 (Prevnar 13) Unknown Completed [facility] Pneumococcal Polysaccharide, PPSV23 (PNEUMOVAX) Unknown Completed [facility] Influenza High Dose Unknown Completed [facility] Influenza High Dose Quad Unknown Completed [facility] Zoster Vaccine Recombinant Unknown Completed [facility] Vital Signs Vital Name Observation Time Observation Value Comments Gerhard hernandez Body height 2024-02-16 18:05:00 160 cm [facility] Body weight 2024-02-16 18:05:00 58.968 kg [facility] BMI 2024-02-16 18:05:00 23.03 kg/m2 [facility] Height 2023-12-05 14:57:00 162.56 CM Weight 2023-12-05 14:57:00 70 KG Height 2023-12-05 14:57:00 162.56 CM Weight 2023-12-05 14:57:00 70 KG Procedures Procedure Date / Time Performed Performing Clinician Source FREE T4 2019-06-28 16:19:00 Damari Gonsalez [facility] THYROID STIMULATING HORMONE 2019-06-28 16:19:00 Madelyn Gonsalez [facility] COMP. METABOLIC PANEL (01592) 2019-06-28 16:19:00 Madelyn Gonsalez [facility] CBC WITH DIFFERENTIAL 2019-06-28 16:19:00 Madelyn Kent [facility] AGREEMENTS AUTHORIZATIONS AND IRREVOCABLE ASSIGNMENTS (FORM 2001) 2019-06-28 05:01:00 Doctor Unassigned, [place] [facility] Encounters Start Date/Time End Date/Time Encounter Type Admission Type Attending Clinicians Care Facility Care Department Encounter ID Source 2025-02-19 11:00:00 2025-02-19 11:00:00 Outpatient JEREMY TAPIA SELENA [facility] [id number] [facility] 2017-05-08 00:00:00 2025-02-07 22:28:50 Refill Madelyn Gonsalez [facility] [id number] 350.1.13.10 4.2.7.2.686 [id number] [facility] 2025-02-05 11:00:00 2025-02-05 11:00:00 Outpatient R JEREMY GALVEZ JEREMY [facility] [id number] [facility] 2025-01-31 13:00:00 2025-01-31 13:00:00 Outpatient R JEREMY GALVEZ SELENA [facility] [id number] [facility] 2015-02-10 00:00:00 2024-12-01 04:29:28 Orders Only [facility] Mackenzie [facility] 1..840.114 350.1.13.10 4.2.7.2.686 [id number] [facility] 2024-02-16 13:09:14 2024-02-16 23:59:00 Hospital Encounter Saqib Echeverriaig Juan Francisco [facility] 1.840.114 350.1.13.10 4.2.7.2.686 [id number] [facility] 2024-02-16 13:00:00 2024-02-16 13:22:26 Outpatient R MALCOLM ECHEVERRIA CRAIG [facility] [id number] [facility] 2024-02-16 13:00:00 2024-02-16 13:22:26 Office Visit Saqib [facility]ig [facility] 1.840.114 350.1.13.10 4.2.7.2.686 [id number] [facility] 2024-01-24 00:00:00 2024-01-24 00:00:00 Telephone Saqib E[facility]verriaig [facility] 1.840.114 350.1.13.10 4.2.7.2.686 [id number] [facility] 2024-01-20 13:58:00 2024-01-20 23:59:00 [facility] 1.2840.114 350.1.13.10 4.2.7.2.686 [id number] [facility] 2024-01-20 00:00:00 2024-01-20 23:59:00 [id number] 2024-01-19 09:26:00 2024-01-19 23:59:00 Hospital Encounter Woods [facility] 1.840.114 350.1.13.10 4.2.7.2.686 [id number] [facility] 2024-01-19 00:00:00 2024-01-19 23:59:00 Outpatient R THEODORE WOODS [facility] [id number] [facility] 2023-12-05 14:37:00 2023-12-05 18:45:00 Emergency E ARTIE ALVAREZ [facility] [id number] [facility] 2023-12-05 14:37:00 2023-12-05 14:37:00 Emergency E [facility] [id number] [facility] 2021-08-27 00:00:00 2021-08-27 00:00:00 Refill Madelyn Gonsalez [facility] 1..840.114 350.1.13.10 4.2.7.2.686 [id number] [facility] 2021-03-03 00:00:00 2021-03-03 00:00:00 Refill Madelyn Gonsalez [facility] 1..840.114 350.1.13.10 4.2.7.2.686 [id number] [facility] 2020-09-22 08:57:07 2020-09-23 08:49:12 Telemedici ne Visit Wallace [facility] 1.2.840.114 350.1.13.10 4.2.7.2.686 [id number] [facility] 2020-09-22 15:40:00 2020-09-22 15:40:00 Outpatient R MADELYN GONSALEZ [facility] [id number] [facility] 2020-09-15 00:00:00 2020-09-15 00:00:00 Refill GonsalezDawitMadelyn A [facility] 1..840.114 350.1.13.10 4.2.7.2.686 [id number] [facility] 2020-08-26 15:20:00 2020-08-26 15:20:00 Outpatient R DAWIT GONSALEZZABETH [facility] [id number] [facility] 2020-08-18 16:35:00 2020-08-18 16:35:00 Outpatient R DAWIT GONSALEZZABETH [facility] [id number] [facility] 2020-08-14 13:40:00 2020-08-14 13:40:00 Outpatient R MADELYN GONSALEZ [facility] [id number] [facility] 2020-06-20 00:00:00 2020-06-20 00:00:00 Refill GonsalezDawitMadelyn A [facility] 1.2.840.114 350.1.13.10 4.2.7.2.686 [id number] [facility] 2020-02-12 07:45:11 2020-02-12 14:16:57 Telemedici ne Visit Mad[facility] 1.2.840.114 350.1.13.10 4.2.7.2.686 [id number] [facility] 2020-02-12 13:40:00 2020-02-12 13:40:00 Outpatient R MADELYN GONSALEZ [facility] [id number] [facility] 2019-06-28 11:14:55 2019-07-02 12:48:06 Pharmacy Manager Visit 2, [facility] Gonsalez Madelyn Borges [facility] 1.2.840.114 350.1.13.10 4.2.7.2.686 [id number] [facility] 2019-07-02 00:00:00 2019-07-02 00:00:00 Refill Madelyn Gonsalez [facility] 1.2.840.114 350.1.13.10 4.2.7.2.686 [id number] [facility] 2019-06-28 00:00:00 2019-06-28 00:00:00 Orders Only Doctor Unassigned, [place] [facility] 1.2.840.114 350.1.13.10 4.2.7.2.686 [id number] [facility] 2019-06-20 00:00:00 2019-06-20 00:00:00 Refill Madelyn Gonsalez [facility] 1.2.840.114 350.1.13.10 4.2.7.2.686 [id number] [facility] 2019-06-19 00:00:00 2019-06-19 00:00:00 Refill GonsalezMadelyn adam [facility] 1.2.840.114 350.1.13.10 4.2.7.2.686 [id number] [facility] Results Test Description Test Time Test Comments Results Result Co mments Source AMMONIA [id number] 17:34:00* Test Item Value Reference Range Interpretation Comme nts AMMONIA (test code = 54A) <10 umol/L 11-32 L DRUGS OF [id number] 17:27:00* Test Item Value Reference Range Interpretation [...] the FDA and the [employer] (CAP) are more stringent than those required for this test. Therefore, the result should be interpreted with caution and close attention to other clinical and epidemiological data LIVER [id number] 16:05:00* Test Item Value Reference Range Interpretation [...] code = 31A) 9 IU/L 10-49 L [id number] 15:57:00* Test Item Value Reference Range Interpretation Comme nts ACETAMINPH (test code = 94M) <0.2 mg/dL 1.2-2.5 L ALCOHOL BLOOD (ETOH)2023-12-05 15:57:00* Test Item Value Reference Range Interpretation Comme nts ETOH (test code = HALC) ETHANOL * The result is to be used only for medical purposes ALCOHOL (test code = 56A) <10 mg/dL <=10 CT HEAD W/O [id number] 15:55:43 [facility] : 1940 Sex: FExam: [...] by: Arik Cantu MD 12/05/2023 03:55 PM [facility] [id number] METABOLIC [id number] 15:50:00* Test Item Value Reference Range Interpretation [...] (test code = 31A) 12 IU/L 10-49 [id number] 15:49:00* Test Item Value Reference Range Interpretation [...] = MDIFF) NO XR CHEST 1 VIEW [id number] 15:11:49 [facility] : 1940 Sex: FCHEST, SINGLE VIEWLOCATION [id number]: Confusion.A single view of the chest was [...] by: Osmany Valdez MD 12/05/2023 03:11 PM [facility], [place] [id number] STIMULATING [id number] 17:57:00* Test Item Value Reference Range Interpretation Comme nts TSH (test code = 4372978586) See_Comment [Automated Medio] The system which generated this result transmitted reference range: 0.45 - 4.70 mIU/L. The reference range was not used to interpret this result as normal/abnormal. Lab Interpretation (test code = 53752-9) [facility] [id number] 17:57:00 * Test Item Value Reference Range Interpretation Comme nts TSH (test code = 1669354485) See_Comment [Automated Medio] The system which generated this result transmitted reference range: 0.45 - 4.70 mIU/L. The reference range was not used to interpret this result as normal/abnormal. Lab Interpretation (test code = 71870-4) Normal [place] [id number] 17:43:00* Test Item Value Reference Range Interpretation Comme nts FREE T4 (test code = 4566494480) 1.32 ng/dL 0.78-2.2 Lab Interpretation (test cod e = 29488-0) Normal [place] [id number] 17:43:00* Test Item Value Reference Range Interpretation Comme nts FREE T4 (test code = 6645035765) 1.32 ng/dL 0.78-2.2 Lab Interpretation (test cod e = 48673-6) Normal [facility]. METABOLIC PANEL ([id number])2019-06-28 17:29:00* Test Item Value Reference Range Interpretation Comme nts NA (test code = 1585385115) 143 mmol/L 135-145 K (test code = 0264071694) 4.3 mmol/L 3.5-5 CL (test code = 0133076189) 110 mmol/L 98-108 H CO2 TOTAL (test code = 7879458416) 27 mmol/L 23-31 AGAP (test code = 4980603993) 2-16 BUN (test code = 5046397885) 17 mg/dL 7-23 GLUCOSE (test code = 9455021540) 98 mg/dL 70-110 CREATININE (test code = 0110948582) 0.87 mg/dL 0.5-1.04 TOTAL BILI (test code = 6146124601) 0.4 mg/dL 0.1-1.1 CALCIUM (test code = 1564616507) 9.9 mg/dL 8.6-10.6 T PROTEIN (test code = 8246585503) 7.0 g/dL 6.3-8.2 ALBUMIN (test code = 2977641316) 4.3 g/dL 3.5-5 ALK PHOS (test code = 8746883957) 60 U/L 34-122 ALT(SGPT) (test code = 5763387132) 17 U/L 9-51 AST(SGOT) (test code = 1533904543) 24 U/L 13-40 eGFR Calculation (Non-) (test code = 2959588787) mL/min/1.73m2 eGFR Calculation () (test code = 6922992393) mL/min/1.73m2 AALIYAH (test code = AALIYAH) Association [...] imaging tests). Lab Interpretation (test code = 16920-9) Abnormal [facility]. METABOLIC PANEL ([id number])2019-06-28 17:29:00* Test Item Value Reference Range Interpretation Comme nts NA (test code = 9210233704) 143 mmol/L 135-145 K (test code = 1527495953) 4.3 mmol/L 3.5-5 CL (test code = 5251587304) 110 mmol/L 98-108 H CO2 TOTAL (test code = 8278120121) 27 mmol/L 23-31 AGAP (test code = 7340348179) 2-16 BUN (test code = 2547539236) 17 mg/dL 7-23 GLUCOSE (test code = 7651437028) 98 mg/dL 70-110 CREATININE (test code = 8362679161) 0.87 mg/dL 0.5-1.04 TOTAL BILI (test code = 3260224895) 0.4 mg/dL 0.1-1.1 CALCIUM (test code = 8417517780) 9.9 mg/dL 8.6-10.6 T PROTEIN (test code = 3403967272) 7.0 g/dL 6.3-8.2 ALBUMIN (test code = 4260553791) 4.3 g/dL 3.5-5 ALK PHOS (test code = 5552422967) 60 U/L 34-122 ALT(SGPT) (test code = 3782429008) 17 U/L 9-51 AST(SGOT) (test code = 5800388554) 24 U/L 13-40 eGFR Calculation (Non-) (test code = 2658308498) mL/min/1.73m2 eGFR Calculation () (test code = 8300531120) mL/min/1.73m2 AALIYAH (test code = AALIYAH) Association [...] imaging tests). Lab Interpretation (test code = 89188-8) Abnormal [facility] WITH [id number] 17:18:00* Test Item Value Reference Range Interpretation Comme nts WBC (test code = 6690-2) See_Comment [Automated Medio] The system which generated this result transmitted reference range: 4.30 - 11.10 10*3/?L. The reference range was not used to interpret this result as normal/abnormal. RBC (test code = 789-8) See_Comment L [Automated Medio] The system which generated this result transmitted [...] g/dL 31.6-35.1 L RDW-SD (test code = 89769-5) 46.6 fL 39-49.9 RDW-CV (test code = 788-0) 12.5 % 12-15.5 PLT (test code = 777-3) See_Comment [Automated Risk Identa ge] The system which generated this result transmitted reference range: 166 - 358 10*3/?L. The reference range was not used to interpret this result as normal/abnormal. MPV (test code = 31257-9) 10.8 fL 9.5-12.9 NRBC/100 WBC (test code = 0942092673) See_Comment [Automated [employer] ssage] The system which generated this result transmitted reference range: 0.0 - 10.0 /100 WBCs. The reference range was not used to interpret this result as normal/abnormal. NRBC x10^3 (test code = 2030165774) <0.01 See_Comment [Automated Risk Identa ge] The system which generated this result transmitted reference range: 10*3/?L. The reference range was not used to interpret this result as normal/abnormal. GRAN MAT (NEUT) % (test code = 770-8) 43.3 % IMM GRAN % (test code = 9070487987) 0.20 % LYMPH % (test code = 736-9) 44.8 % MONO % (test code = 5905-5) 7.3 % EOS % (test code = 713-8) 3.4 % BASO % (test code = 706-2) 1.0 % GRAN MAT x10^3(ANC) (test code = 7646156175) 2.27 10*3/uL 1.88-7.09 IMM GRAN x10^3 (test code = 9219555048) <0.03 0-0.06 LYMPH x10^3 (test code = 731-0) 2.35 10*3/uL 1.32-3.29 MONO x10^3 (test code = 742-7) 0.38 10*3/uL 0.33-0.92 EOS x10^3 (test code = 711-2) 0.18 10*3/uL 0.03-0.39 BASO x10^3 (test code = 704-7) 0.05 10*3/uL 0.01-0.07 Lab Interpretation (test code = 14349-8) Abnormal [facility] WITH [id number] 17:18:00* Test Item Value Reference Range Interpretation [...] g/dL 31.6-35.1 L RDW-SD (test code = 41058-5) 46.6 fL 39-49.9 RDW-CV (test code = 788-0) 12.5 % 12-15.5 PLT (test code = 777-3) See_Comment [Automated messa ge] The system which generated this result transmitted reference range: 166 - 358 10*3/?L. The reference range was not used to interpret this result as normal/abnormal. MPV (test code = 95592-6) 10.8 fL 9.5-12.9 NRBC/100 WBC (test code = 9812125443) See_Comment [Automated [employer] ssage] The system which generated this result transmitted reference range: 0.0 - 10.0 /100 WBCs. The reference range was not used to interpret this result as normal/abnormal. NRBC x10^3 (test code = 4488985460) <0.01 See_Comment [Automated messa ge] The system which generated this result transmitted reference range: 10*3/?L. The reference range was not used to interpret this result as normal/abnormal. GRAN MAT (NEUT) % (test code = 770-8) 43.3 % IMM GRAN % (test code = 5465692082) 0.20 % LYMPH % (test code = 736-9) 44.8 % MONO % (test code = 5905-5) 7.3 % EOS % (test code = 713-8) 3.4 % BASO % (test code = 706-2) 1.0 % GRAN MAT x10^3(ANC) (test code = 4605010985) 2.27 10*3/uL 1.88-7.09 IMM GRAN x10^3 (test code = 6938120707) <0.03 0-0.06 LYMPH x10^3 (test code = 731-0) 2.35 10*3/uL 1.32-3.29 MONO x10^3 (test code = 742-7) 0.38 10*3/uL 0.33-0.92 EOS x10^3 (test code = 711-2) 0.18 10*3/uL 0.03-0.39 BASO x10^3 (test code = 704-7) 0.05 10*3/uL 0.01-0.07 Lab Interpretation (test code = 49764-6) Abnormal [facility] Notes Date/Time Note Provider Source 2024-01-24 14:33:10 Radiology report received from [facility] [employer] in providers basket for review Jaspreet Espinosanz [facility] 2024-01-24 13:49:02 [facility] [employer] in [employer] basket for review [facility] 2017-05-11 11:09:12 IRCHIE: 11/09/16 LAST FILL: 05/13/16 REQUESTED RX: PROVIDER: Madelyn Gonsalez MD NEXT OFFICE VISIT 05/11/17 Pt has an appt scheduled for 05/11/17. Please advise if refill will be given Roxann Soto MA 05/11/2017 11:14 AM Roxann Soto MA [facility]"
[2025-07-23] MEDS ORDERED: ONDANSETRON 4 MG/2 ML VIAL ONE (07:42)
[2025-07-23] MEDS ORDERED: NA CHLORIDE 0.9% 500 ML ONE (07:54)
--- NOTE | 2025-07-23 08:33 | RAD REPORT ---
EXAMINATION: ONE VIEW CHEST XR CLINICAL INDICATION: CHEST PAIN TECHNIQUE: Frontal chest projection is submitted. Examination is limited by patient positioning and t echnique. COMPARISON: 03/21/2024 FINDINGS: Linear atelectasis is present in the right lung base. Lungs otherwise clear. The heart is mildly enla rged in size. No displaced fractures identified.
[2025-07-23 09:05] LABS: Absolute Lymphocytes (CBC) 0.8 K/uL (0.7-4.9); Hematocrit 40.2 % (36.0-45.0); Hemoglobin 13.4 g/dL (12.0-15.0); MCH 29.9 pg (27.0-35.0); MCHC 33.3 g/dL (32.0-36.0); MCV 89.8 fL (80-100); MPV 9.6 fL (7.6-11.3); Nucleated RBC Absolute Count 0.0 (0-0); Nucleated Red Blood Cells % 0.1 % (0-0); RBC Red Blood Cell Count 4.48 M/uL (3.86-4.86); White Blood Count 10.20 thou/uL (4.3-10.9)
[2025-07-23 09:06] LABS: PT Prothrombin Time 11.2 SECONDS (10-13.0); Protime INR 0.99
[2025-07-23 09:23] LABS: ALT/SGPT 16 U/L (13-56); AST/SGOT 16 U/L (15-37); Albumin 3.3 g/dL (3.4-5.0); Albumin/Globulin Ratio 0.8 (1.1-1.8); Alkaline Phosphatase 73 U/L (45-117); Anion Gap 10.9 mEq/L (5.0-15.0); BUN Blood Urea Nitrogen 21 mg/dL (7-18); Globulin 4.3 g/dL (2.3-3.5); Glucose Level 140 mg/dL (74-106); Lipase 44 U/L (13-75); Magnesium 2.2 mg/dL (1.6-2.4); NT PRO-BNP 795 pg/mL (<450); Potassium 3.9 mEq/L (3.5-5.1); Troponin High Sensitivity 6.8 pg/mL (<58.9)
[2025-07-23 09:37] LABS: Bilirubin Indirect, Calculated 0.1 mg/dL (0.2-0.8)
[2025-07-23 09:46] LABS: Blood Morphology Comment NOT SEEN (NOT SEEN); White Blood Cell Scan OK (OK)
--- NOTE | 2025-07-23 10:20 | EDPHYS ---
Physician Documentation [facility] Name: Laura Meléndez Age: 85 yrs Sex: Female : 1940 Arrival Date: 07/23/2025 Time: 07:10 Bed 3 Private MD: ED Physician Anabelle Douglas HPI: 07/23 07:50 This 85 yrs old Female presents to ER via EMS with complaints of Nausea/Vomiting. sp3 07:50 85-year-old female with history of Alzheimer's disease, anxiety, schizophrenia from 3 residential with reports from them for vomiting x 2 over the last evening. No coffee-ground emesis of blood reported. All history is from EMS. ROS, history and physical limited from patient due to schizophrenia and Alzheimer's dementia.. Historical: - Allergies: 07:14 No Known Allergies; bp - PMHx: 07:14 Alzheimer's disease; Anemia; Anxiety; BRADYCARDIA; Dementia; depressive disorder; bp History of falls; Hypertensive disorder; Hypothyroidism; insomnia; IRON DEFICIENCY ANEMIA; Schizophrenia; - PSHx: 07:14 Left artificial hip joint; bp - Immunization history:: Adult Immunizations up to date. - Infectious Disease History:: Denies. - Social history:: Smoking status: Patient denies any tobacco usage or history of. ROS: 07:53 Unable to obtain ROS due to baseline dementia, sp3 Exam: 07:53 Constitutional: This is a well developed, well nourished patient who is awake, alert, sp3 and in no acute distress. Head/Face: Normocephalic, atraumatic. Eyes: Pupils equal round and reactive to light, extra-ocular motions intact. Lids and lashes normal. Conjunctiva and sclera are non-icteric and not injected. Cornea within normal limits. Periorbital areas with no swelling, redness, or edema. ENT: Nares patent. No nasal discharge, no septal abnormalities noted. External auditory canals are clear. Oropharynx with no redness, swelling, or masses, exudates, or evidence of obstruction, uvula midline. Mucous membranes moist. Neck: Trachea midline, no thyromegaly or masses palpated, and no cervical lymphadenopathy. Supple, full range of motion without nuchal rigidity, or vertebral point tenderness. No Meningismus. Chest/axilla: Normal chest wall appearance and motion. Nontender with no deformity. No lesions are appreciated. Cardiovascular: Regular rate and rhythm with a normal S1 and S2. No gallops, murmurs, or rubs. Normal PMI, no JVD. No pulse deficits. Respiratory: Lungs have equal breath sounds bilaterally, clear to auscultation and percussion. No rales, rhonchi or wheezes noted. No increased work of breathing, no retractions or nasal flaring. Abdomen/GI: Soft, non-tender, with normal bowel sounds. No distension or tympany. No guarding or rebound. No evidence of tenderness throughout. Back: No spinal tenderness. No costovertebral tenderness. Full range of motion. Skin: Warm, dry with normal turgor. Normal color with no rashes, no lesions, and no evidence of cellulitis. Neuro: Awake and alert, GCS 15, oriented to person, place, time, and situation. Cranial nerves II-XII grossly intact. Motor strength 5/5 in all extremities. Sensory grossly intact. Cerebellar exam normal. Normal gait. Psych: Awake, alert, with orientation to person, place and time. Behavior, mood, and affect are within normal limits. 09:50 ECG was reviewed by the Attending Physician. EKG demonstrates normal sinus rhythm at 86 sp3 bpm with a first-degree AV block with AL interval 208, QTc of 500, and normal axis, normal QRS and nonspecific diffuse ST/T changes without evidence of acute ischemia. Vital Signs: 07:12 BP 118 / 72; Pulse 90; Resp 20; Temp 98; Pulse Ox 96% ; bp 07:45 BP 133 / 81; Pulse 81; Resp 16; Pulse Ox 99% on R/A; dd2 07:45 BP 154 / 84; Pulse 82; Resp 16; Temp 98.3; Pulse Ox 98% on R/A; dd2 09:00 BP 172 / 83; Pulse 84; Resp 16; Pulse Ox 97% on R/A; dd2 09:30 BP 164 / 83; Pulse 83; Resp 17; Pulse Ox 97% on R/A; dd2 MDM: 07:23 Medical Screening Exam initiated sp3 07:55 Data reviewed: vital signs, nurses notes, EMS record, residential records, old medical sp3 records, lab test result(s), EKG, radiologic studies. ED course: Limited data on this patient evaluation. 85-year-old female with reported nausea and vomiting however patient has no current symptoms. Vital signs are normal. Differential diagnosis includes gastritis, GERD, foodborne illness, viral illness, to a lesser degree acute coronary syndrome, UTI, pancreatitis, biliary pathology, among others. Workup will include general labs, EKG, UA, chest x-ray and general supportive care. If workup negative we will safely discharge patient back to residential.. 10:14 ED course: Patient has had no vomiting at all in the ER. She is stable with normal sp3 vital signs. Workup negative and we will safely discharge home.. 07/23 07:26 Order name: Basic Metabolic Panel; Complete Time: 10:14 sp3 07/23 07:26 Order name: CBC with Diff; Complete Time: 10: sp3 07/23 07:26 Order name: LFT's; Complete Time: :14 sp3 07/23 07:26 Order name: Magnesium; Complete Time: 10:14 sp3 07/23 07:26 Order name: NT PRO-BNP; Complete Time: 10:14 sp3 07/23 07:26 Order name: PT-INR; Complete Time: 10:14 sp3 07/23 07:26 Order name: Troponin HS; Complete Time: 10:14 sp3 07/23 07:26 Order name: Lipase; Complete Time: 10:14 sp3 07/23 09:46 Order name: CBC Smear Scan; Complete Time: 10:14 EDMS 07/23 07:26 Order name: XRAY Chest (1 view); Complete Time: 08:37 sp3 07/23 07:26 Order name: Cardiac monitoring; Complete Time: 09:13 sp3 07/23 07:26 Order name: EKG - Nurse/Tech; Complete Time: : sp3 07/23 07:26 Order name: IV Saline Lock; Complete Time: 07:56 sp3 07/23 07:26 Order name: Labs collected and sent; Complete Time: 09: sp3 07/23 07:26 Order name: O2 Per Protocol; Complete Time: :56 sp3 07/23 07:26 Order name: O2 Sat Monitoring; Complete Time: 07:56 sp3 Administered Medications: 07:56 Drug: Ondansetron IVP 4 mg IVP once; over 2 minutes Route: IVP; Site: right forearm; dd2 08:12 Follow up: Response: No adverse reaction dd2 07:56 Drug: NS 0.9% IV 500 ml 500 ml IV at 1 bolus once; to be given as a bolus over 30 dd2 minutes Volume: 500 ml; Route: IV; Rate: 1 bolus; Site: right forearm; 08:37 Follow up: IV Status: Completed infusion dd2 Disposition Summary: 07/23/25 10:20 Discharge Ordered Notes: Location: Home sp3 Condition: Stable sp3 Diagnosis - Vomiting sp3 Followup: sp3 - With: Private Physician - When: Upon discharge from the Emergency Department - Reason: Continuance of care Discharge Instructions: - Discharge Summary Sheet sp3 - Vomiting, Adult sp3 Forms: - Medication Reconciliation Form sp3 - Antibiotic Education sp3 - Prescription Opioid Use sp3 - Patient Portal Instructions sp3 - Leadership Thank You Letter sp3 Prescriptions: - Zofran 4 mg Oral Tablet - take 1 tablet ORAL route every 12 hours As needed; 6 tablet; Refills: 0, sp3 Product Selection Permitted Signatures: Dispatcher [employer] Osito Valadez, RN RN Anabelle Douglas MD MD sp3 MARY KATE LEMUS RN RN dd2 Corrections: (The following items were deleted from the chart) 07:26 07:26 Chest Single View+RAD.RAD.BRZ ordered. BEATRICE BARRON
--- NOTE | 2025-07-23 10:20 | ER ---
Nurse's Notes [facility] Name: Laura Meléndez Age: 85 yrs Sex: Female : 1940 Arrival Date: 07/23/2025 Time: 07:10 Bed 3 Private MD: Diagnosis: Vomiting Presentation: 07/23 07:12 Chief complaint: EMS states: NAUSEA/VOMITING SINCE LAST NIGHT. Coronavirus screen: At bp this time, the client does not indicate any symptoms associated with coronavirus-19. Ebola Screen: No symptoms or risks identified at this time. Initial Sepsis Screen: Does the patient meet any 2 criteria? No. Patient's initial sepsis screen is negative. Does the patient have a suspected source of infection? No. Patient's initial sepsis screen is negative. Risk Assessment: Do you want to hurt yourself or someone else? Patient reports no desire to harm self or others. Onset of symptoms is unknown. Care prior to arrival: Glucose check: 161. 07:12 Method Of Arrival: EMS: [facility] bp 07:12 Acuity: PARKER 3 bp Triage Assessment: 07:14 General: Appears in no apparent distress. Behavior is calm. Pain: Unable to use pain bp scale. Does not appear to understand pain scale. EENT: No deficits noted. Neuro: Level of Consciousness is awake, obeys commands, Oriented to person. Cardiovascular: No deficits noted. Respiratory: No deficits noted. GI: Reports nausea. : No signs and/or symptoms were reported regarding the genitourinary system. Derm: No deficits noted. Musculoskeletal: No deficits noted. Historical: - Allergies: 07:14 No Known Allergies; bp - PMHx: 07:14 Alzheimer's disease; Anemia; Anxiety; BRADYCARDIA; Dementia; depressive disorder; bp History of falls; Hypertensive disorder; Hypothyroidism; insomnia; IRON DEFICIENCY ANEMIA; Schizophrenia; - PSHx: 07:14 Left artificial hip joint; bp - Immunization history:: Adult Immunizations up to date. - Infectious Disease History:: Denies. - Social history:: Smoking status: Patient denies any tobacco usage or history of. Screenin:59 [facility] ED Fall Risk Assessment (Adult). Abuse screen: Denies threats or abuse. Denies dd2 injuries from another. Nutritional screening: No deficits noted. Tuberculosis screening: No symptoms or risk factors identified. 11:38 [facility] ED Fall Risk Assessment (Adult) History of falling in the last 3 months, dd2 including since admission No falls in past 3 months (0 pts) Confusion or Disorientation Yes (5 pts) Intoxicated or Sedated No (0 pts) Impaired Gait Yes (1 pt) Mobility Assist Device Used Yes (1 pt) Altered Elimination Yes (1 pt) Score/Fall Risk Level 3 or more points = High Risk Oriented to surroundings, Maintained a safe environment, Educated pt \T\ family on fall prevention, incl call for assistance when getting out of bed, Assessed \T\ reinforced patient's understanding of fall precautions, Hourly rounding (assess needs \T\ fall precautionary measures) done, Used ambulatory aids as needed (educated on \T\ assisted with), Apply high fall risk patient identification: yellow non skid footwear/ fall signage. Assessment: 07:45 General: Appears in no apparent distress. comfortable, well nourished, Behavior is dd2 calm, cooperative, appropriate for age. Pain: Denies pain. Neuro: Level of Consciousness is awake, alert, obeys commands, Oriented to person, HX DEMENTIA. Cardiovascular: No deficits noted. JVD is absent Patient's skin is warm and dry. Respiratory: No deficits noted. Airway is patent Respiratory effort is even, unlabored, Respiratory pattern is regular, symmetrical. GI: Abdomen is non-distended, Bowel sounds present X 4 quads. Abd is soft and non tender X 4 quads. Parent/caregiver reports the patient having nausea, vomiting, since 07/23/2025. : No signs and/or symptoms were reported regarding the genitourinary system. EENT: No deficits noted. No signs and/or symptoms were reported regarding the EENT system. Derm: No deficits noted. No signs and/or symptoms reported regarding the dermatologic system. Skin is intact, Skin is dry, Skin is normal, Skin temperature is warm. Musculoskeletal: No deficits noted. No signs and/or symptoms reported regarding the musculoskeletal system. Circulation, motion, and sensation intact. 10:40 Reassessment: report given to [place] nurseYessy who states she will arrange ss transportation at this time for pt to come back to alf. Son at bedside and verbalizes understanding of discharge instructions. Vital Signs: 07:12 BP 118 / 72; Pulse 90; Resp 20; Temp 98; Pulse Ox 96% ; bp 07:45 BP 133 / 81; Pulse 81; Resp 16; Pulse Ox 99% on R/A; dd2 07:45 BP 154 / 84; Pulse 82; Resp 16; Temp 98.3; Pulse Ox 98% on R/A; dd2 09:00 BP 172 / 83; Pulse 84; Resp 16; Pulse Ox 97% on R/A; dd2 09:30 BP 164 / 83; Pulse 83; Resp 17; Pulse Ox 97% on R/A; dd2 ED Course: 07:11 Patient arrived in ED. bp 07:14 Triage completed. bp 07:14 Arm band placed on. bp 07:16 Osito Francois, RN is Primary Nurse. bp 07:18 Anabelle Douglas MD is Attending Physician. sp3 07:28 Inserted saline lock: 22 gauge in right forearm, using aseptic technique. Flushed with dd2 10 mL NS. 07:57 Radiology exam delayed due to IV insertion attempt and/or patient not having az appropriate IV at this time. 08:29 XRAY Chest (1 view) In Process Unspecified. EDMS 09:56 No provider procedures requiring assistance completed. dd2 09:56 Initial lab(s) drawn, by ED staff, sent to lab. EKG done, by ED staff, reviewed by dd2 Anabelle Douglas MD. Patient maintains SpO2 saturation greater than 95% on room air. 10:00 Patient has correct armband on for positive identification. Bed in low position. Call dd2 light in reach. Side rails up X2. Client placed on continuous cardiac and pulse oximetry monitoring. NIBP monitoring applied. paediatrician on. Door closed. Noise minimized. Warm blanket given. Pillow given. Verbal reassurance given. 11:38 Provided Education on: D/C EDUCATION TO EMS AND ALF . dd2 11:38 IV discontinued, intact, bleeding controlled, No redness/swelling at site. Pressure dd2 dressing applied. Administered Medications: 07:56 Drug: Ondansetron IVP 4 mg IVP once; over 2 minutes Route: IVP; Site: right forearm; dd2 08:12 Follow up: Response: No adverse reaction dd2 07:56 Drug: NS 0.9% IV 500 ml 500 ml IV at 1 bolus once; to be given as a bolus over 30 dd2 minutes Volume: 500 ml; Route: IV; Rate: 1 bolus; Site: right forearm; 08:37 Follow up: IV Status: Completed infusion dd2 Medication: 11:38 VIS not applicable for this client. dd2 Outcome: 10:20 Discharge ordered by MD. zarate 11:28 Discharged to alf. Report called to Yessy ricardo 11:28 Condition: good 11:28 Discharge instructions given to patient, family, alf, Instructed on discharge instructions, follow up and referral plans. medication usage, Demonstrated understanding of instructions, follow-up care, medications, Prescriptions given X 1, 11:40 Patient left the ED. dd2 Signatures: Dispatcher [employer] EDMS Sheila Dumont RN RN ss Osito Francois RN RN Kayla Ramirez Setul, MD MD sp3 MARY KATE LEMUS RN RN dd2 Corrections: (The following items were deleted from the chart) 07:16 07:14 Neuro: No deficits noted. bp bp
[2025-07-23 12:24] VITALS: TEMP 98.3
[2025-07-23 12:26] VITALS: O2SAT 97
[2025-07-23 12:27] VITALS: BP 164/83
== END 2025-07-23 11:40 | disposition home or self-care (01) ==
LOC: ER 07:10
DX: R11.10 Vomiting, unspecified (principal); G30.9 Alzheimer's disease, unspecified; F02.80 Dementia in other diseases classified elsewhere, unspecified severity, without behavioral disturbance, psychotic disturbance, mood disturbance, and anxiety
CPT/HCPCS: 96361; 93005; 85025; 80048; 36415; 83735; 85610; 80076; 84484; 83690; 83880; 71045; 96374; 99285; J2405; J7040